=== PATIENT | male | born 1965 | race African-American/Black ===

== ENCOUNTER 2016-05-27 10:52 | Emergency (ER) | payer OTHER ==
[2016-05-27 11:14] VITALS: TEMP 98.1; BMI 45.0
--- NOTE | 2016-05-27 11:46 | PDOC ---
History of Present Illness <Gabriel Pastor - Last Filed: 05/27/16 15:28> - History of Present Illness Initial Comments: 05/27/16 11:58 The patient is a 50 year old male with a past medical hx of hypertension, hyperlipidemia, and NIDDM who presents to the ED complaining of left lower rib pain for a few days. The patient reports he has pain to his lower back with range of motion and twisting. He denies any trauma to his back or falls. The patient notes he is diabetic and checks his sugar levels daily, which are normal. The patient denies any chest pain, SOB The patient denies any dysuria, hematuria The patient denies nausea, vomiting, fever, chills Social: Drinks a few beers daily PCP: Dr. Nikita Henao Allergies: Iodine <Sona Jaquez - Last Filed: 05/27/16 15:45> - General Chief Complaint: Pain Stated Complaint: lt flank SIDE PAIN Past History - Past Medical History Anemia: No Asthma: No Cancer: No Cardiac Disorders: No CVA: No COPD: No CHF: No Dementia: No Diabetes: Yes (NIDDM) GI Disorders: Yes (PANCREATITIS) Disorders: No HTN: Yes Hypercholesterolemia: Yes Liver Disease: No Suicide Attempt (Hx): No Seizures: No Thyroid Disease: No - Surgical History Abdominal Surgery: No Appendectomy: No Cardiac Surgery: No Cholecystectomy: No Lung Surgery: No Neurologic Surgery: No Orthopedic Surgery: Yes (BILATERAL SHOULDER SURGERY) - Family Disease History Family Disease History: Diabetes: Mother, Heart Disease: Father - Psycho/Social/Smoking Cessation Hx Anxiety: No Suicidal Ideation: No Smoking Status: Yes Smoking History: Former smoker Have you smoked in the past 12 months: No Number of Cigarettes Smoked Daily: 0 If you are a former smoker, when did you quit?: 2007 Information on smoking cessation initiated: No Hx Alcohol Use: No Drug/Substance Use Hx: No Substance Use Type: Alcohol Hx Substance Use Treatment: No <Gabriel Pastor - Last Filed: 05/27/16 15:28> <Sona Jaquez - Last Filed: 05/27/16 15:45> - Past Medical History Allergies/Adverse Reactions: Allergies Allergy/AdvReac Type Severity Reaction Status Date / Time fish derived Allergy Verified 05/27/16 11:10 iodine Allergy Verified 05/27/16 11:10 shellfish derived Allergy Difficulty Verified 05/27/16 11:10 Breathing Home Medications: Ambulatory Orders Atorvastatin Ca [Lipitor] 10 mg PO HS #0 tablet 02/15/13 Enalapril Maleate [Vasotec -] 20 mg PO DAILY #0 tablet 02/15/13 Oxybutynin Chloride [Ditropan -] 5 mg PO DAILY 03/27/16 Amlodipine Besylate [Norvasc -] 10 mg PO DAILY 03/28/16 Furosemide [Lasix -] 40 mg PO DAILY 03/28/16 Glyburide/Metformin HCl [Glyburide-Metformin 2.5-500 mg] 1 each PO BID 03/28/16 Metoprolol Succinate [Toprol XL -] 25 mg PO BID 03/28/16 Ibuprofen [Motrin -] 600 mg PO QID #28 tablet 05/27/16 Methocarbamol [Robaxin -] 750 mg PO BID PRN #20 tablet 05/27/16 Review of Systems - Review of Systems Able to Perform ROS?: Yes Comments:: 05/27/16 11:59 CONSTITUTIONAL: Absent: fever, chills, diaphoresis, generalized weakness, malaise, loss of appetite HEENT: Absent: rhinorrhea, nasal congestion, throat pain, throat swelling, difficulty swallowing, mouth swelling, ear pain, eye pain, visual Changes CARDIOVASCULAR: Absent: chest pain, syncope, palpitations, irregular heart rate, lightheadedness , peripheral edema RESPIRATORY: Absent: cough, shortness of breath, dyspnea with exertion, orthopnea, wheezing, stridor, hemoptysis GASTROINTESTINAL: Absent: abdominal pain, abdominal distension, nausea, vomiting, diarrhea, constipation, melena, hematochezia GENITOURINARY: Absent: dysuria, frequency, urgency, hesitancy, hematuria, flank pain, genital pain MUSCULOSKELETAL: +Left lower rib pain. Absent: joint swelling SKIN: Absent: rash, itching, pallor HEMATOLOGIC/IMMUNOLOGIC: Absent: easy bleeding, easy bruising, lymphadenopathy, frequent infections ENDOCRINE: Absent: unexplained weight gain, unexplained weight loss, heat intolerance, cold intolerance NEUROLOGIC: Absent: headache, focal weakness or paresthesias, dizziness, unsteady gait, seizure, mental status changes, bladder or bowel incontinence PSYCHIATRIC: Absent: anxiety, depression, suicidal or homicidal ideation, hallucinations. <Sona Jaquez - Last Filed: 05/27/16 15:45> *Physical Exam - Vital Signs Last Vital Signs Temp Pulse Resp BP Pulse Ox 98.1 F 84 18 129/101 95 05/27/16 11:11 05/27/16 11:11 05/27/16 11:11 05/27/16 11:11 05/27/16 11:11 <Gabriel Pastor - Last Filed: 05/27/16 15:28> - Vital Signs Last Vital Signs Temp Pulse Resp BP Pulse Ox 98.1 F 84 18 129/101 95 05/27/16 11:11 05/27/16 11:11 05/27/16 11:11 05/27/16 11:11 05/27/16 11:11 - Physical Exam Comments: 05/27/16 11:57 GENERAL: Well developed, well nourished. Awake and alert. In no acute distress. HEENT: Normocephalic, atraumatic. PERRLA, EOMI. No conjunctival pallor. Sclera are non- icteric. Moist mucous membranes. Oropharynx is clear. NECK: Supple. Full ROM. No JVD. Carotid pulses 2+ and symmetric, without bruits. No thyromegaly. No lymphadenopathy. CARDIOVASCULAR: Regular rate and rhythm. No murmurs, rubs, or gallops. Distal pulses are 2+ and symmetric. PULMONARY: No evidence of respiratory distress. Lungs clear to auscultation bilaterally. No wheezing, rales or rhonchi. ABDOMINAL: +Mild epigastric tenderness. Soft. Non-distended. No rebound or guarding. No organomegaly. Normoactive bowel sounds. MUSCULOSKELETAL +Tenderness to palpation over the left ninth and tenth rib posteriorly. Normal range of motion at all joints. No bony deformities. No CVA tenderness. EXTREMITIES: No cyanosis. No clubbing. No edema. No calf tenderness. SKIN: Warm and dry. Normal capillary refill. No rashes. No jaundice. NEUROLOGICAL: Alert, awake, appropriate. Cranial nerves 2-12 intact. No deficits to light touch and temperature in face, upper extremities and lower extremities. No motor deficits in the in face, upper extremities and lower extremities. Normoreflexic in the upper and lower extremities. Normal speech. Toes are downgoing bilaterally. Gait is normal without ataxia. PSYCHIATRIC: Cooperative. Good eye contact. Appropriate mood and affect. <Sona Jaquez - Last Filed: 05/27/16 15:45> Heart Score/ECG Review - ECG Impressions Comment:: 05/27/16 13:45 EKG: NSR at a rate of 63 bpm. Normal EKG. <Sona Jaquez - Last Filed: 05/27/16 15:45> ED Treatment Course - LABORATORY CBC & Chemistry Diagram: 05/27/16 12:17 05/27/16 12:17 <Gabriel Pastor - Last Filed: 05/27/16 15:28> - LABORATORY CBC & Chemistry Diagram: 05/27/16 12:17 05/27/16 12:17 - RADIOLOGY Radiograph Interpretation: 05/27/16 14:48 Chest X-Ray AP and lateral views reveal no significant change since 01/26/2015. There are degenerative changes with wedging, clear lungs, normal mediastinum and sharp angles. A gross fracture is not seen. There Is no sign of a pneumothorax, pleural fluid or atelectasis. There is evidence of previous left shoulder surgery with screws seen in the left acromium. Impression: No acute pathology. No significant change. If symptoms persist, further imaging may be of help. Reported By: Chaz Ba MD 05/27/16 [id number] <Sona Jaquez - Last Filed: 05/27/16 15:45> Medical Decision Making - Medical Decision Making 05/27/16 15:45 Discussed the patients weight with him. The patient reports he has not been able to lose weight with conscious effort. The patient was responsive to the suggestion of surgery. He reports he will consider speaking with a Bariatric surgeon on recommendation of Dr. Nikita Henao. <Sona Jaquez - Last Filed: 05/27/16 15:45> *DC/Admit/Observation/Transfer - Discharge Dispostion Admit: No <Gabriel Pastor - Last Filed: 05/27/16 15:28> - Attestations Scribe Attestion: 05/27/16 11:58 Documentation prepared by Sona Jaquez, acting as medical charge entry specialist for Gabriel Pastor MD <Sona Jaquez - Last Filed: 05/27/16 15:45> Diagnosis at time of Disposition: Musculoskeletal chest pain - Discharge Dispostion Disposition: HOME Condition at time of disposition: Improved - Prescriptions Prescriptions: Ibuprofen [Motrin -] 600 mg PO QID #28 tablet Methocarbamol [Robaxin -] 750 mg PO BID PRN #20 tablet PRN Reason: Muscle Spasms - Referrals Referrals: Nikita Henao MD [Primary Care Provider] - - Patient Instructions Printed Discharge Instructions: DI for Musculoskeletal Pain Additional Instructions: contact your PMD to recommend a Bariatric Surgeon for a consultation.
[2016-05-27] MEDS ORDERED: KETOROLAC TROMETHAMINE 30 MG/1 ML VIAL IVPUSH ONE (11:56)
[2016-05-27 12:32] LABS: EOSINOPHIL 2.5 % (0-4.5); MCH 30.3 pg (25.7-33.7); MCHC 32.9 g/dl (32.0-35.9); MEAN CELL VOLUME 92.2 fl (80-96); MEAN PLT VOLUME 8.4 fl (7.5-11.1); PLATELET COUNT 193 K/MM3 (134-434); RDW 15.1 % (11.9-15.9)
[2016-05-27] MEDS ORDERED: KETOROLAC TROMETHAMINE 30 MG/1 ML VIAL ONE (12:45)
[2016-05-27 12:55] LABS: ALBUMIN 3.3 g/dl (3.4-5.0); ANION GAP 5 (8-16); BILIRUBIN,TOTAL 0.6 mg/dL (0.2-1.0); CALCIUM 8.4 mg/dL (8.5-10.1); CO2 28 mmol/L (21-32); CREATININE 1.3 mg/dL (0.7-1.3); GLUCOSE,RANDOM 145 mg/dL (74-106); SGPT/ALT 31 U/L (12-78)
[2016-05-27 13:04] LABS: ALK PHOS 70 U/L (45-117)
[2016-05-27 13:05] LABS: TROPONIN I < 0.02 ng/ml (0.00-0.05)
[2016-05-27 13:08] LABS: SGOT/AST 44 U/L (15-37)
--- NOTE | 2016-05-27 13:28 | EKG ---
Test Reason : Blood Pressure : / mmHG Vent. Rate : 063 BPM Atrial Rate : 063 BPM P-R Int : 154 ms QRS Dur : 090 ms QT Int : 404 ms P-R-T Axes : 058 -19 025 degrees QTc Int : 413 ms NORMAL SINUS RHYTHM NORMAL ECG WHEN COMPARED WITH ECG OF 03-FEB-2015 09:58, VENT. RATE HAS DECREASED BY 32 BPM Confirmed by MAYANK HAYWOOD MD ([id number]) on 05/27/2016 1:27:59 PM Referred By: Confirmed By:MAYANK HAYWOOD MD
[2016-05-27 14:38] LABS: URINE APPEARANCE CLEAR; URINE BILIRUBIN NEGATIVE (NEGATIVE); URINE BLOOD NEGATIVE (NEGATIVE); URINE COLOR LTYELLOW; URINE GLUCOSE (UA) NEGATIVE (NEGATIVE); URINE KETONE NEGATIVE (NEGATIVE); URINE LEUK ESTERASE NEGATIVE (NEGATIVE); URINE NITRITE NEGATIVE (NEGATIVE); URINE PROTEIN NEGATIVE (NEGATIVE); URINE UROBILINOGEN NEGATIVE E.U./dl (0.2-1.0)
[2016-05-27 15:51] VITALS: BP 139/87; PULSE 72
== END 2016-05-27 15:51 | disposition home or self-care (01) ==
LOC: JER 10:52
DX: R07.89 Other chest pain (principal); I10 Essential (primary) hypertension; E11.9 Type 2 diabetes mellitus without complications; Z79.84 Long term (current) use of oral hypoglycemic drugs; E78.00 Pure hypercholesterolemia, unspecified; Z87.891 Personal history of nicotine dependence
CPT/HCPCS: 36415; 71020-TC; 80053; 81003; 82550; 82553; 83690; 84484; 85025; 87086; 93005; 93010; 99283-25

== ENCOUNTER 2017-04-07 10:10 | Emergency (ER) | payer OTHER ==
[2017-04-07 10:14] VITALS: BP 190/109; PULSE 99; TEMP 98.5; BMI 46.2
--- NOTE | 2017-04-07 11:02 | PDOC ---
History of Present Illness - General Chief Complaint: Toothache Stated Complaint: TOOTHACHE Time Seen by Provider: 04/07/17 10:30 History Source: Patient Exam Limitations: No Limitations - History of Present Illness Initial Comments: 04/07/17 19:57 Patient states had swelling to his left upper palate for 2 days with tenderness around left upper molar. Denies fever, denies drainage, denies true tooth pain. Has appointment to see dentist in 3 days. Timing/Duration: unsure Severity: mild, moderate Associated Symptoms: reports: denies symptoms, malaise. denies: fever/chills Past History - Travel Traveled outside of the country in the last 30 days: No Close contact w/someone who was outside of country & ill: No - Past Medical History Allergies/Adverse Reactions: Allergies Allergy/AdvReac Type Severity Reaction Status Date / Time fish derived Allergy Verified 04/07/17 10:13 iodine Allergy Verified 04/07/17 10:13 shellfish derived Allergy Difficulty Verified 04/07/17 10:13 Breathing Home Medications: Ambulatory Orders Atorvastatin Ca [Lipitor] 10 mg PO HS #0 tablet 02/15/13 Enalapril Maleate [Vasotec -] 20 mg PO DAILY #0 tablet 02/15/13 Oxybutynin Chloride [Ditropan -] 5 mg PO DAILY 03/27/16 Amlodipine Besylate [Norvasc -] 10 mg PO DAILY 03/28/16 Furosemide [Lasix -] 40 mg PO DAILY 03/28/16 Glyburide/Metformin HCl [Glyburide-Metformin 2.5-500 mg] 1 each PO BID 03/28/16 Metoprolol Succinate [Toprol XL -] 25 mg PO BID 03/28/16 Ibuprofen [Motrin -] 600 mg PO QID #28 tablet 05/27/16 Methocarbamol [Robaxin -] 750 mg PO BID PRN #20 tablet 05/27/16 Amoxicillin - [Amoxicillin 500mg Capsule -] 500 mg PO TID #21 capsule 04/07/17 Anemia: No Asthma: No Cancer: No Cardiac Disorders: No CVA: No COPD: No CHF: No Dementia: No Diabetes: Yes (NIDDM) GI Disorders: Yes (PANCREATITIS) Disorders: No HTN: Yes Hypercholesterolemia: Yes Liver Disease: No Seizures: No Thyroid Disease: No - Surgical History Abdominal Surgery: No Appendectomy: No Cardiac Surgery: No Cholecystectomy: No Lung Surgery: No Neurologic Surgery: No Orthopedic Surgery: Yes (BILATERAL SHOULDER SURGERY) - Family Disease History Family Disease History: Diabetes: Mother, Heart Disease: Father - Suicide/Smoking/Psychosocial Hx Smoking Status: Yes Smoking History: Never smoked Have you smoked in the past 12 months: No Number of Cigarettes Smoked Daily: 0 If you are a former smoker, when did you quit?: 2007 Hx Alcohol Use: No Drug/Substance Use Hx: No Substance Use Type: None Hx Substance Use Treatment: No Review of Systems - Review of Systems Able to Perform ROS?: Yes Is the patient limited Cuban proficient: Yes Constitutional: Yes: Symptoms Reported, See HPI, Malaise. No: Fever HEENTM: Yes: Symptoms Reported, See HPI, Dental Problems, Mouth Swelling Respiratory: Yes: See HPI. No: Symptoms reported All Other Systems: Reviewed and Negative *Physical Exam - Vital Signs Last Vital Signs Temp Pulse Resp BP Pulse Ox 98.5 F 99 H 20 190/109 100 04/07/17 10:10 04/07/17 10:10 04/07/17 10:10 04/07/17 10:10 04/07/17 10:10 - Physical Exam General Appearance: Yes: Nourished, Appropriately Dressed HEENT: positive: SUSI, TMs Normal, Pharynx Normal, Rhinorrhea, Other (swelling and pain tophard pallet , non fluctuant ) Neck: positive: Supple. negative: Tender, Lymphadenopathy (R) Respiratory/Chest: positive: Lungs Clear, Normal Breath Sounds Cardiovascular: positive: Regular Rhythm Gastrointestinal/Abdominal: positive: Soft. 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, Fully Oriented, Alert Medical Decision Making - Medical Decision Making 04/07/17 20:06 palate abscess , not fluctuant - will start on clindamycin *DC/Admit/Observation/Transfer Diagnosis at time of Disposition: Toothache - Discharge Dispostion Disposition: HOME Condition at time of disposition: Stable Admit: No - Prescriptions Prescriptions: Amoxicillin - [Amoxicillin 500mg Capsule -] 500 mg PO TID #21 capsule - Referrals Referrals: Nikita Henao MD [Primary Care Provider] - - Patient Instructions Printed Discharge Instructions: DI for Dental Pain Additional Instructions: Rest, drink lots of fluids: Teas, water, soups Saltwater gargles/ keep mouth clean and rinse after each meal May use wet teabag for pain relief to area Avoid hard chewing foods, stick to ice cream, Jell-O, yogurt etc. Tylenol or Motrin for fever and pain Complete all medication as prescribed Seek dental appointment as soon as possible for evaluation of dental injury/pain Followup with private physician in one to 2 days as needed Return to emergency department for worsened symptoms, fevers, swelling to face or worsened pain - Post Discharge Activity Forms/Work/School Notes: Back to Work
== END 2017-04-07 11:06 | disposition home or self-care (01) ==
LOC: JERFT 10:10
DX: K08.89 Other specified disorders of teeth and supporting structures (principal); I10 Essential (primary) hypertension; E11.9 Type 2 diabetes mellitus without complications; Z79.84 Long term (current) use of oral hypoglycemic drugs; E78.00 Pure hypercholesterolemia, unspecified; Z87.19 Personal history of other diseases of the digestive system
CPT/HCPCS: 99281-25

== ENCOUNTER 2017-04-14 13:02 | Emergency (ER) | payer OTHER ==
[2017-04-14 13:07] VITALS: BMI 40.3
--- NOTE | 2017-04-14 14:10 | PDOC ---
History of Present Illness - General Chief Complaint: Toothache Stated Complaint: REVISIT, TOOTHACHE Time Seen by Provider: 04/14/17 13:40 History Source: Patient Exam Limitations: No Limitations - History of Present Illness Initial Comments: 04/14/17 14:25 Patient return to emergency Department after completion of weeks worth amoxicillin treating for presumed dental infection with resultant hard palate inflammation. Last weeks mass was approximately 1 cm x 1.5 cm on the left upper mid palate and nonfluctuant. Patient returns today with a larger size mass that approximately 1 cm x 3 cm and fluctuant however nontender. Patient denies fever , denies any changes in blood sugar And is in dental appearance, worsened pain or abscess at dental insertion. States was seen by 2 different dentists who told him they could not perform any dental work including extraction due to the abscess on his hard palate. Was instructed to return to this emergency department for further evaluation and diagnostics . Timing/Duration: unsure Severity: mild, moderate Associated Symptoms: denies: fever/chills Past History - Travel Traveled outside of the country in the last 30 days: No Close contact w/someone who was outside of country & ill: No - Past Medical History Allergies/Adverse Reactions: Allergies Allergy/AdvReac Type Severity Reaction Status Date / Time fish derived Allergy Verified 04/14/17 13:07 iodine Allergy Verified 04/14/17 13:07 shellfish derived Allergy Difficulty Verified 04/14/17 13:07 Breathing Home Medications: Ambulatory Orders Atorvastatin Ca [Lipitor] 10 mg PO HS #0 tablet 02/15/13 Enalapril Maleate [Vasotec -] 20 mg PO DAILY #0 tablet 02/15/13 Oxybutynin Chloride [Ditropan -] 5 mg PO DAILY 03/27/16 Amlodipine Besylate [Norvasc -] 10 mg PO DAILY 03/28/16 Furosemide [Lasix -] 40 mg PO DAILY 03/28/16 Glyburide/Metformin HCl [Glyburide-Metformin 2.5-500 mg] 1 each PO BID 03/28/16 Metoprolol Succinate [Toprol XL -] 25 mg PO BID 03/28/16 Ibuprofen [Motrin -] 600 mg PO QID #28 tablet 05/27/16 Methocarbamol [Robaxin -] 750 mg PO BID PRN #20 tablet 05/27/16 Clindamycin [Cleocin -] 450 mg PO Q8H 7 Days #63 capsule 04/14/17 Anemia: No Asthma: No Cancer: No Cardiac Disorders: No CVA: No COPD: No CHF: No Dementia: No Diabetes: Yes (NIDDM) GI Disorders: Yes (PANCREATITIS) Disorders: No HTN: Yes Hypercholesterolemia: Yes Liver Disease: No Seizures: No Thyroid Disease: No - Surgical History Abdominal Surgery: No Appendectomy: No Cardiac Surgery: No Cholecystectomy: No Lung Surgery: No Neurologic Surgery: No Orthopedic Surgery: Yes (BILATERAL SHOULDER SURGERY) - Family Disease History Family Disease History: Diabetes: Mother, Heart Disease: Father - Suicide/Smoking/Psychosocial Hx Smoking Status: Yes Smoking History: Never smoked Have you smoked in the past 12 months: No Number of Cigarettes Smoked Daily: 0 If you are a former smoker, when did you quit?: 2007 Hx Alcohol Use: No Drug/Substance Use Hx: No Substance Use Type: None Hx Substance Use Treatment: No Review of Systems - Review of Systems Able to Perform ROS?: Yes Is the patient limited Martiniquais proficient: Yes Constitutional: Yes: See HPI. No: Symptoms Reported, Chills, Fever, Malaise HEENTM: Yes: Symptoms Reported, See HPI, Mouth Pain, Dental Problems Respiratory: Yes: See HPI. No: Symptoms reported All Other Systems: Reviewed and Negative *Physical Exam - Vital Signs Last Vital Signs Temp Pulse Resp BP Pulse Ox 98 F 88 20 196/106 97 04/14/17 13:04 04/14/17 13:04 04/14/17 13:04 04/14/17 13:04 04/14/17 13:04 - Physical Exam General Appearance: Yes: Nourished, Appropriately Dressed HEENT: positive: SUSI, TMs Normal, Other (patient with 3 cm x 1 cm fluctuant mass to the left mid upper palate. Is nontender to touch, no erythema, and dentition without obvious abscess or swelling/tenderness to any gingival surface adjacent to upper molars. Was identified at dentist that first and second molars were probable source of infection.). negative: Rhinorrhea, Sinus Tenderness Neck: positive: Supple. negative: Tender, Lymphadenopathy (R), Lymphadenopathy (L) Respiratory/Chest: positive: Lungs Clear, Normal Breath Sounds Cardiovascular: positive: Regular Rhythm Gastrointestinal/Abdominal: positive: Soft. 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 Remains nontender. Due to patient's completed course of antibiotics, diabetes history, and necessity for laboratory work and CAT scan to help identify oral mass, patient was moved to main emergency department and turnover given to Dr. Urias , nursing turnover to RICHARD BROOKE. . She moved to room 12b an updated to plan *DC/Admit/Observation/Transfer Diagnosis at time of Disposition: Dental infection - Discharge Dispostion Disposition: HOME - Prescriptions Prescriptions: Clindamycin [Cleocin -] 450 mg PO Q8H 7 Days #63 capsule - Referrals Referrals: Philomena Naqvi MD [Staff Physician] - Alexus Martin MD [Primary Care Provider] - - Patient Instructions Printed Discharge Instructions: DI for Tooth Abscess Additional Instructions: Take the antibiotics as prescribed. You must follow up with a dentist or oral surgeon within 48 hours to have your infection further treated. Failure to do so may result in worsening infection, severe illness, or potentially . Call the number provided to make an appointment with our oral surgery clinic. If you experience worsening swelling, pain, fevers, or any other concerning symptoms, return to the ER immediately. - Post Discharge Activity
--- NOTE | 2017-04-14 14:38 | PDOC ---
*Physical Exam - Vital Signs Last Vital Signs Temp Pulse Resp BP Pulse Ox 98 F 88 20 196/106 97 04/14/17 13:04 04/14/17 13:04 04/14/17 13:04 04/14/17 13:04 04/14/17 13:04 ED Treatment Course - ADDITIONAL ORDERS Additional order review: Laboratory Results 04/14/17 13:52 POC Glucometer [id number] 04/14/17 13:52 POC Glucometer [id number] - RADIOLOGY Radiology Studies Ordered: Category Date Time Status FACIAL BONES CT W/O CONTRAST [CT] Stat CT Scan 04/14/17 14:32 Ordered Medical Decision Making - Medical Decision Making 04/14/17 14:41 51 M with likely dental abscess, presenting to ER after failed course of amoxicillin. Pt well appearing with no signs of systemic illness. I&D attempted by LELA Winchester without drainage of purulent material. - CT facial bones w/o contrast (contrast allergy) - Will start clindamycin - F/u OMFS 04/14/17 19:13 CT with no evidence of abscess or osteo. Pt started on clinda. BP rechecked, now normalized. Pt given home dose of enalapril. Pt well appearing, vitals normal. Clinically stable for DC at this time. I discussed the physical exam findings, ancillary test results and final diagnoses with the patient. I answered all of the patient's questions. The patient was satisfied with the care received and felt comfortable with the discharge plan and treatment plan. The patient agrees to follow up with the primary care physician within 24-72 hours. *DC/Admit/Observation/Transfer Diagnosis at time of Disposition: Dental infection - Discharge Dispostion Disposition: HOME - Prescriptions Prescriptions: RX: Clindamycin [Cleocin -] 450 mg PO Q8H 7 Days #63 capsule - Referrals Referrals: Alexus Martin MD [Primary Care Provider] - Philomena Naqvi MD [Staff Physician] - - Patient Instructions Printed Discharge Instructions: DI for Tooth Abscess Additional Instructions: Take the antibiotics as prescribed. You must follow up with a dentist or oral surgeon within 48 hours to have your infection further treated. Failure to do so may result in worsening infection, severe illness, or potentially . Call the number provided to make an appointment with our oral surgery clinic. If you experience worsening swelling, pain, fevers, or any other concerning symptoms, return to the ER immediately. - Post Discharge Activity - Attestations Physician Attestion: 04/14/17 14:45 I, Dr. Juvencio Urias MD, attest that this document has been prepared under my direction and personally reviewed by me in its entirety. I further attest, that it accurately reflects all work, treatment, procedures and medical decision -making performed by me.
[2017-04-14] MEDS ORDERED: CLINDAMYCIN HCL 150 MG CAPSULE (FP) PO ONE (14:40)
[2017-04-14] MEDS ORDERED: oxyCODONE HCL 5 MG TABLET ONE (15:01)
[2017-04-14] MEDS ORDERED: CLINDAMYCIN HCL 150 MG CAPSULE (FP) ONE (15:01)
[2017-04-14] MEDS ORDERED: ENALAPRIL MALEATE 10 MG TABLET (FP) PO ONE (17:52)
[2017-04-14] MEDS ORDERED: ENALAPRIL MALEATE 5 MG TABLET (FP) ONE (18:42)
[2017-04-14 18:56] VITALS: BP 162/87; PULSE 78; TEMP 97.1
== END 2017-04-14 19:42 | disposition home or self-care (01) ==
LOC: JERFT 13:02 → JER 13:02
PROC: 0W930ZZ Drainage of Oral Cavity and Throat, Open Approach (ICD-10-PCS; principal; 2017-04-14)
DX: K12.2 Cellulitis and abscess of mouth (principal)
CPT/HCPCS: 70486-TC; 82962; 99282-25

== ENCOUNTER 2017-08-14 13:18 | Observation (INO) | payer OTHER ==
--- NOTE | 2017-08-14 13:56 | PDOC ---
History of Present Illness - General History Source: Patient Exam Limitations: No Limitations - History of Present Illness Initial Comments: 08/14/17 14:36 The patient is a 51 year old male, with a significant PMH of BPH, HTN, DM, who presents to the emergency department sent in by [employer] Dr. Wolf for evaluation of right foot wound. The patient states he does not recall any injury or trauma to the foot but states he noted the wound one week ago. The patient states he went to [employer] Dr. Wolf who advised him to come to the ED for evaluation. The patient denies any recent fever or chills. The patient denies chest pain, shortness of breath, headache and dizziness. Denies nausea, vomit, diarrhea and constipation. Denies dysuria, frequency, urgency and hematuria. Allergies: fish derived, iodine, shellfish derived. <Jeancarlos Garcia - Last Filed: 08/14/17 16:34> <Nicky Albright - Last Filed: 08/14/17 16:36> - General Chief Complaint: Wound Stated Complaint: FOOT PAIN (PCP SENT) Time Seen by Provider: 08/14/17 13:56 Past History <Jeancarlos Garcia - Last Filed: 08/14/17 16:34> - Past Medical History Anemia: No Asthma: No Cancer: No Cardiac Disorders: No CVA: No COPD: No CHF: No DVT: No Dementia: No Diabetes: Yes (NIDDM) GI Disorders: Yes (PANCREATITIS) Disorders: No HTN: Yes Hypercholesterolemia: Yes Liver Disease: No Seizures: No Thyroid Disease: No - Surgical History Abdominal Surgery: No Appendectomy: No Cardiac Surgery: No Cholecystectomy: No Lung Surgery: No Neurologic Surgery: No Orthopedic Surgery: Yes (BILATERAL SHOULDER SURGERY) - Family Disease History Family Disease History: Diabetes: Mother, Heart Disease: Father - Suicide/Smoking/Psychosocial Hx Smoking Status: Yes Smoking History: Former smoker Have you smoked in the past 12 months: No Number of Cigarettes Smoked Daily: 0 If you are a former smoker, when did you quit?: 2007 Information on smoking cessation initiated: No Hx Alcohol Use: No Drug/Substance Use Hx: No Substance Use Type: None Hx Substance Use Treatment: No <Nicky Albright - Last Filed: 08/14/17 16:36> - Past Medical History Allergies/Adverse Reactions: Allergies Allergy/AdvReac Type Severity Reaction Status Date / Time fish derived Allergy Verified 08/14/17 13:20 iodine Allergy Verified 08/14/17 13:20 shellfish derived Allergy Difficulty Verified 08/14/17 13:20 Breathing Home Medications: Ambulatory Orders Atorvastatin Ca [Lipitor] 10 mg PO HS #0 tablet 02/15/13 Enalapril Maleate [Vasotec -] 20 mg PO DAILY #0 tablet 02/15/13 Oxybutynin Chloride [Ditropan -] 5 mg PO DAILY 03/27/16 Amlodipine Besylate [Norvasc -] 10 mg PO DAILY 03/28/16 Furosemide [Lasix -] 40 mg PO DAILY 03/28/16 Glyburide/Metformin HCl [Glyburide-Metformin 2.5-500 mg] 1 each PO BID 03/28/16 Metoprolol Succinate [Toprol XL -] 25 mg PO BID 03/28/16 Ibuprofen [Motrin -] 600 mg PO QID #28 tablet 05/27/16 Methocarbamol [Robaxin -] 750 mg PO BID PRN #20 tablet 05/27/16 Clindamycin [Cleocin -] 450 mg PO Q8H 7 Days #63 capsule 04/14/17 Review of Systems - Review of Systems Comments:: 08/14/17 14:36 GENERAL/CONSTITUTIONAL: No fever or chills. No weakness. HEAD, EYES, EARS, NOSE AND THROAT: No change in vision. No ear pain or discharge. No sore throat. CARDIOVASCULAR: No chest pain or shortness of breath. RESPIRATORY: No cough, wheezing, or hemoptysis. GASTROINTESTINAL: No nausea, vomiting, diarrhea or constipation. GENITOURINARY: No dysuria, frequency, or change in urination. MUSCULOSKELETAL: No joint or muscle swelling or pain. No neck or back pain. SKIN: (+) Right foot wound. No rash NEUROLOGIC: No headache, vertigo, loss of consciousness, or change in strength/ sensation. ENDOCRINE: No increased thirst. No abnormal weight change. HEMATOLOGIC/LYMPHATIC: No anemia, easy bleeding, or history of blood clots. ALLERGIC/IMMUNOLOGIC: No hives or skin allergy. <Jeancarlos Garcia - Last Filed: 08/14/17 16:34> *Physical Exam - Vital Signs Last Vital Signs Temp Pulse Resp BP Pulse Ox 98.6 F 87 18 146/100 100 08/14/17 13:20 08/14/17 13:20 08/14/17 13:20 08/14/17 13:20 08/14/17 13:20 - Physical Exam Comments: 08/14/17 14:38 GENERAL: Awake, alert, and fully oriented, in no acute distress HEAD: No signs of trauma EYES: PERRLA, EOMI, sclera anicteric, conjunctiva clear ENT: Auricles normal inspection, hearing grossly normal, nares patent, oropharynx clear without exudates. Moist mucosa NECK: Normal ROM, supple, no lymphadenopathy, JVD, or masses LUNGS: Breath sounds equal, clear to auscultation bilaterally. No wheezes, and no crackles HEART: Regular rate and rhythm, normal S1 and S2, no murmurs, rubs or gallops ABDOMEN: Soft, nontender, normoactive bowel sounds. No guarding, no rebound. No masses EXTREMITIES: Normal range of motion, no edema. No clubbing or cyanosis. No cords, erythema, or tenderness NEUROLOGICAL: Cranial nerves II through XII grossly intact. Normal speech, normal gait SKIN: (+) Chronic skin thickening over the dorsum of the right foot with 2 cm ulcer on the plantar surface of the foot. (+) Tenderness, without minimal drainage and no surrounding erythema. <Jeancarlos Garcia - Last Filed: 08/14/17 16:34> - Vital Signs Last Vital Signs Temp Pulse Resp BP Pulse Ox 98.6 F 87 18 146/100 100 08/14/17 13:20 08/14/17 13:20 08/14/17 13:20 08/14/17 13:20 08/14/17 13:20 <Nicky Albright - Last Filed: 08/14/17 16:36> ED Treatment Course - LABORATORY CBC & Chemistry Diagram: 08/14/17 14:30 08/14/17 14:30 <Jeancarlos Garcia - Last Filed: 08/14/17 16:34> - LABORATORY CBC & Chemistry Diagram: 08/14/17 14:30 08/14/17 14:30 <Nicky Albright - Last Filed: 08/14/17 16:36> Medical Decision Making - Medical Decision Making 08/14/17 16:[address] Alexus Martin. Case discussed. <Jeancarlos Garcia - Last Filed: 08/14/17 16:34> - Medical Decision Making 08/14/17 15:30 pt presents to the ED complaining of wound to his R foot. Seen by diesel trailer mechanic and told to come to the ED for possible infection and need for IV antibiotics. No systemic signs of infection. Will check labs and blood CX, check xray of the foot and admit to medicine. <Nicky Albright - Last Filed: 08/14/17 16:36> *DC/Admit/Observation/Transfer - Attestations Scribe Attestion: 08/14/17 14:43 Documentation prepared by Jeancarlos Garcia, acting as medical center representative for Nicky Albright MD. <Jeancarlos Garcia - Last Filed: 08/14/17 16:34> - Discharge Dispostion Decision to Admit order: Yes <Nicky Albright - Last Filed: 08/14/17 16:36> Diagnosis at time of Disposition: Diabetic foot ulcer Qualifiers: Diabetic foot ulcer location: midfoot Diabetes mellitus type: type 2 Laterality : right Non-pressure ulcer stage: limited to breakdown of skin Qualified Code(s) : E11.621 - Type 2 diabetes mellitus with foot ulcer; L97.411 - Non-pressure chronic ulcer of right heel and midfoot limited to breakdown of skin; L97.411 - Non-pressure chronic ulcer of right heel and midfoot limited to breakdown of skin; L97.411 - Non-pressure chronic ulcer of right heel and midfoot limited to breakdown of skin; L97.411 - Non-pressure chronic ulcer of right heel and midfoot limited to breakdown of skin - Referrals Referrals: Alexus Martin MD [Primary Care Provider] - - Patient Instructions - Post Discharge Activity
[2017-08-14 14:58] LABS: EOS % 2.4 % (0-4.5); HEMATOCRIT 35.7 % (35.4-49); LYMPH % 17.5 % (8-40); MCH 30.6 pg (25.7-33.7); MCHC 33.6 g/dl (32.0-35.9); MEAN CELL VOLUME 91.2 fl (80-96); MEAN PLT VOLUME 8.8 fl (7.5-11.1); MONO % 9.4 % (3.8-10.2); NEUT % 69.7 % (42.8-82.8); PLATELET COUNT 204 K/MM3 (134-434); RBC 3.92 M/mm3 (4.00-5.60); RDW 14.6 % (11.9-15.9)
[2017-08-14 15:24] LABS: ALBUMIN 3.3 g/dl (3.4-5.0); ANION GAP 4 (8-16); BLOOD UREA NITROGEN 23 mg/dL (7-18); CALCIUM 8.8 mg/dL (8.5-10.1); CHLORIDE 104 mmol/L (98-107); CO2 30 mmol/L (21-32); CREATININE 1.5 mg/dL (0.7-1.3); GLUCOSE,RANDOM 213 mg/dL (74-106); SGPT/ALT 30 U/L (12-78); SODIUM 138 mmol/L (136-145)
[2017-08-14 15:26] LABS: ALK PHOS 88 U/L (45-117); BILIRUBIN,TOTAL 0.4 mg/dL (0.2-1.0); TOT PROT 7.8 g/dl (6.4-8.2)
[2017-08-14 16:05] LABS: POTASSIUM 4.9 mmol/L (3.5-5.1); SGOT/AST 31 U/L (15-37)
[2017-08-14] MEDS ORDERED: AMPICILLIN NA/SULBACTAM NA 3 GM in SODIUM CHLORIDE 100 ML IVPB ONE (16:35)
[2017-08-14] MEDS ORDERED: METHOCARBAMOL 750 MG TABLET PO PRN ×2 (17:46→21:14)
[2017-08-14] MEDS: INSULIN SLIDING SCALE (NOVOLOG) 1 VIAL SQ SCH (21:41)
[2017-08-14] MEDS: metoPROLOL SUCCINATE 25 MG TAB.SR.24H (FP) PO SCH (21:41)
[2017-08-14] MEDS: ATORVASTATIN CA 10 MG TABLET (FP) PO SCH (21:41)
[2017-08-14] MEDS: METHOCARBAMOL 500 MG TABLET PO SCH (22:28)
[2017-08-15 00:04] VITALS: BMI 50.1
[2017-08-15] MEDS ORDERED: AMPICILLIN NA/SULBACTAM NA 3 GM in SODIUM CHLORIDE 100 ML IVPB ONE (04:48)
[2017-08-15] MEDS: INSULIN SLIDING SCALE (NOVOLOG) 1 VIAL SQ SCH ×4 (06:39→21:26)
[2017-08-15] MEDS ORDERED: INSULIN (NOVOLOG) ASPART 100 UNITS/ML 10ML VIAL ONE ×2 (06:52→21:11)
[2017-08-15 09:24] LABS: BASO % 0.9 % (0-2.0); EOS % 3.6 % (0-4.5); HEMOGLOBIN 11.9 GM/dL (11.7-16.9); MCH 30.3 pg (25.7-33.7); MCHC 33.1 g/dl (32.0-35.9); MEAN CELL VOLUME 91.5 fl (80-96); MEAN PLT VOLUME 8.6 fl (7.5-11.1); MONO % 9.1 % (3.8-10.2); NEUT % 60.4 % (42.8-82.8); PLATELET COUNT 196 K/MM3 (134-434); RBC 3.94 M/mm3 (4.00-5.60); RDW 14.4 % (11.9-15.9)
[2017-08-15] MEDS ORDERED: PT OWN MED DRAWER 7, Y5N ONE ×2 (09:25→21:11)
[2017-08-15] MEDS ORDERED: PATIENT'S OWN MEDICATION (NON-FORMULARY) (Enalapril Maleate [Vasotec -] 20 MG) PO SCH (10:00)
[2017-08-15 10:14] LABS: CHLORIDE 101 mmol/L (98-107); POTASSIUM 4.3 mmol/L (3.5-5.1); SODIUM 138 mmol/L (136-145)
[2017-08-15 10:45] LABS: ALBUMIN 3.3 g/dl (3.4-5.0); ALK PHOS 80 U/L (45-117); ANION GAP 6 (8-16); BILIRUBIN,TOTAL 0.6 mg/dL (0.2-1.0); BLOOD UREA NITROGEN 19 mg/dL (7-18); CALCIUM 8.7 mg/dL (8.5-10.1); CO2 31 mmol/L (21-32); CREATININE 1.2 mg/dL (0.7-1.3); GLUCOSE,RANDOM 237 mg/dL (74-106); SGOT/AST 17 U/L (15-37); SGPT/ALT 26 U/L (12-78); TOT PROT 7.6 g/dl (6.4-8.2)
[2017-08-15] MEDS: amLODIPine BESYLATE 10 MG TABLET (FP) PO SCH (10:55)
[2017-08-15] MEDS: ENALAPRIL MALEATE 10 MG TABLET (FP) PO SCH (10:55)
[2017-08-15] MEDS: OXYBUTYNIN CHLORIDE 5 MG TABLET PO SCH (10:55)
[2017-08-15] MEDS: METHOCARBAMOL 500 MG TABLET PO SCH ×2 (10:55→21:26)
[2017-08-15] MEDS: metoPROLOL SUCCINATE 25 MG TAB.SR.24H (FP) PO SCH ×2 (10:55→21:26)
--- NOTE | 2017-08-15 11:14 | HP ---
Admitting History and Physical - Primary Care Physician PCP: Nikita Henao - Admission Chief Complaint: foot ulcer History of Present Illness: ER HISTORY The patient is a 51 year old male, with a significant PMH of BPH, HTN, DM, who presents to the emergency department sent in by [employer] Dr. Wolf for evaluation of right foot wound. The patient states he does not recall any injury or trauma to the foot but states he noted the wound one week ago. The patient states he went to [employer] Dr. Wolf who advised him to come to the ED for evaluation. The patient denies any recent fever or chills. The patient denies chest pain, shortness of breath, headache and dizziness. Denies nausea, vomit, diarrhea and constipation. Denies dysuria, frequency, urgency and hematuria. Allergies: fish derived, iodine, shellfish derived. Pt seen by me on the floors He feels well denies any pain in foot No drainage History Source: Patient Limitations to Obtaining History: No Limitations - Past Medical History Cardiovascular: Yes: HTN, Hyperlipdemia Renal/: Yes: Renal Inusuff Endocrine: Yes: Diabetes Mellitus - Smoking History Smoking history: Former smoker Have you smoked in the past 12 months: No Aproximately how many cigarettes per day: 0 If you are a former smoker, when did you quit?: 2007 - Alcohol/Substance Use Hx Alcohol Use: No Home Medications - Allergies Allergies/Adverse Reactions: Allergies Allergy/AdvReac Type Severity Reaction Status Date / Time fish derived Allergy Verified 08/14/17 13:20 iodine Allergy Verified 08/14/17 13:20 shellfish derived Allergy Difficulty Verified 08/14/17 13:20 Breathing - Home Medications Home Medications: Ambulatory Orders Atorvastatin Ca [Lipitor] 10 mg PO HS #0 tablet 02/15/13 Enalapril Maleate [Vasotec -] 20 mg PO DAILY #0 tablet 02/15/13 Oxybutynin Chloride [Ditropan -] 5 mg PO DAILY 03/27/16 Amlodipine Besylate [Norvasc -] 10 mg PO DAILY 03/28/16 Furosemide [Lasix -] 40 mg PO DAILY 03/28/16 Glyburide/Metformin HCl [Glyburide-Metformin 2.5-500 mg] 1 each PO BID 03/28/16 Metoprolol Succinate [Toprol XL -] 25 mg PO BID 03/28/16 Ibuprofen [Motrin -] 600 mg PO QID #28 tablet 05/27/16 Methocarbamol [Robaxin -] 750 mg PO BID PRN #20 tablet 05/27/16 Review of Systems - Review of Systems Constitutional: denies: Chills, Fever Integumentary: reports: Wound Physical Examination Vital Signs: Vital Signs Temperature 98.8 F 08/15/17 09:00 Pulse Rate 92 H 08/15/17 09:00 Respiratory Rate 20 08/15/17 09:00 Blood Pressure 146/89 08/15/17 09:00 O2 Sat by Pulse Oximetry (%) 100 08/15/17 00:08 Constitutional: Yes: No Distress, Calm Cardiovascular: Yes: Regular Rate and Rhythm Respiratory: Yes: CTA Bilaterally Gastrointestinal: Yes: Normal Bowel Sounds, Soft, Abdomen, Obese. No: Tenderness Extremities: Yes: Other (rt foot wound) Edema: No Labs: CBC, BMP 08/15/17 08:49 08/15/17 08:49 Imaging - Results Chest X-ray: Image Reviewed (Clear) X-ray: Report Reviewed EKG: Image Reviewed (NSR) Problem List - Problems (1) Diabetic foot ulcer Code(s): E11.621 - TYPE 2 DIABETES MELLITUS WITH FOOT ULCER; L97.509 - NON- PRESSURE CHRONIC ULCER OTH PRT UNSP FOOT W UNSP SEVERITY Qualifiers: Diabetic foot ulcer location: midfoot Diabetes mellitus type: type 2 Laterality: right Non-pressure ulcer stage: limited to breakdown of skin Qualified Code(s): E11.621 - Type 2 diabetes mellitus with foot ulcer; L97.411 - Non-pressure chronic ulcer of right heel and midfoot limited to breakdown of skin; L97.411 - Non-pressure chronic ulcer of right heel and midfoot limited to breakdown of skin; L97.411 - Non-pressure chronic ulcer of right heel and midfoot limited to breakdown of skin; L97.411 - Non-pressure chronic ulcer of right heel and midfoot limited to breakdown of skin (2) Obesity Code(s): E66.9 - OBESITY, UNSPECIFIED (3) Plantar ulcer of right foot Code(s): L97.519 - NON-PRS CHRONIC ULCER OTH PRT RIGHT FOOT W UNSP SEVERITY Qualifiers: Non-pressure ulcer stage: limited to breakdown of skin Qualified Code(s): L97.511 - Non-pressure chronic ulcer of other part of right foot limited to breakdown of skin (4) BPH (benign prostatic hyperplasia) Code(s): N40.0 - BENIGN PROSTATIC HYPERPLASIA WITHOUT LOWER URINRY TRACT SYMP Assessment/Plan PLAN Spoke with ID-- on iv antibiotics Unable to do MRI due to pt's body habitus afebrile no elevated WBC continue with meds
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
[2017-08-15 11:52] LABS: ERYTHROCYTE SEDIMENTATION RATE 28 mm/hr (0-20)
--- NOTE | 2017-08-15 11:57 | EKG ---
Test Reason : Blood Pressure : / mmHG Vent. Rate : 086 BPM Atrial Rate : 086 BPM P-R Int : 144 ms QRS Dur : 090 ms QT Int : 370 ms P-R-T Axes : 050 -15 045 degrees QTc Int : 442 ms NORMAL SINUS RHYTHM POSSIBLE LEFT ATRIAL ENLARGEMENT BORDERLINE ECG WHEN COMPARED WITH ECG OF 27-MAY-2016 13:11, NO SIGNIFICANT CHANGE WAS FOUND Confirmed by MATTHIAS CHRISTIANSEN, RE ([id number]) on 08/15/2017 11:57:40 AM Referred By: Confirmed By:RE RIZZO MD
[2017-08-15] MEDS: ATORVASTATIN CA 10 MG TABLET (FP) PO SCH (21:26)
[2017-08-16] MEDS: INSULIN SLIDING SCALE (NOVOLOG) 1 VIAL SQ SCH ×4 (06:11→21:27)
[2017-08-16] MEDS: amLODIPine BESYLATE 10 MG TABLET (FP) PO SCH (10:36)
[2017-08-16] MEDS: ENALAPRIL MALEATE 10 MG TABLET (FP) PO SCH (10:36)
[2017-08-16] MEDS: metoPROLOL SUCCINATE 25 MG TAB.SR.24H (FP) PO SCH ×2 (10:36→21:27)
[2017-08-16] MEDS: OXYBUTYNIN CHLORIDE 5 MG TABLET PO SCH (10:36)
[2017-08-16] MEDS: METHOCARBAMOL 500 MG TABLET PO SCH ×2 (10:37→21:27)
--- NOTE | 2017-08-16 12:57 | PN ---
Progress Note, Physician Chief Complaint: no complaints feels well - Current Medication List Current Medications: Active Medications Amlodipine Besylate (Norvasc -) 10 mg PO DAILY [facility] Last Admin: 08/16/17 10:36 Dose: 10 mg Atorvastatin Calcium (Lipitor -) 10 mg PO HS [facility] Last Admin: 08/15/17 21:26 Dose: 10 mg Enalapril Maleate (Vasotec -) 20 mg PO DAILY [facility] Last Admin: 08/16/17 10:36 Dose: 20 mg Insulin Aspart (Novolog Vial Sliding Scale -) 1 vial SQ ACHS [facility] PRN Reason: Protocol Last Admin: 08/16/17 11:50 Dose: 6 units Methocarbamol (Robaxin -) 750 mg PO BID [facility] Last Admin: 08/16/17 10:37 Dose: 750 mg Metoprolol Succinate (Toprol Xl -) 25 mg PO BID [facility] Last Admin: 08/16/17 10:36 Dose: 25 mg Oxybutynin Chloride (Ditropan -) 5 mg PO DAILY [facility] Last Admin: 08/16/17 10:36 Dose: 5 mg - Objective Vital Signs: Vital Signs Temperature 98.5 F 08/16/17 06:55 Pulse Rate 77 08/16/17 06:55 Respiratory Rate 19 08/16/17 06:55 Blood Pressure 139/76 08/16/17 06:55 O2 Sat by Pulse Oximetry (%) 95 08/15/17 21:00 Constitutional: Yes: No Distress Cardiovascular: Yes: Regular Rate and Rhythm Respiratory: Yes: CTA Bilaterally Gastrointestinal: Yes: Normal Bowel Sounds, Soft, Abdomen, Obese. No: Tenderness Edema: No Labs: CBC, BMP 08/15/17 08:49 08/15/17 08:49 Problem List - Problems (1) Diabetic foot ulcer Code(s): E11.621 - TYPE 2 DIABETES MELLITUS WITH FOOT ULCER; L97.509 - NON- PRESSURE CHRONIC ULCER OTH PRT UNSP FOOT W UNSP SEVERITY Qualifiers: Diabetic foot ulcer location: midfoot Diabetes mellitus type: type 2 Laterality: right Non-pressure ulcer stage: limited to breakdown of skin Qualified Code(s): E11.621 - Type 2 diabetes mellitus with foot ulcer; L97.411 - Non-pressure chronic ulcer of right heel and midfoot limited to breakdown of skin; L97.411 - Non-pressure chronic ulcer of right heel and midfoot limited to breakdown of skin; L97.411 - Non-pressure chronic ulcer of right heel and midfoot limited to breakdown of skin; L97.411 - Non-pressure chronic ulcer of right heel and midfoot limited to breakdown of skin (2) Obesity Code(s): E66.9 - OBESITY, UNSPECIFIED (3) Plantar ulcer of right foot Code(s): L97.519 - NON-PRS CHRONIC ULCER OTH PRT RIGHT FOOT W UNSP SEVERITY Qualifiers: Non-pressure ulcer stage: limited to breakdown of skin Qualified Code(s): L97.511 - Non-pressure chronic ulcer of other part of right foot limited to breakdown of skin (4) BPH (benign prostatic hyperplasia) Code(s): N40.0 - BENIGN PROSTATIC HYPERPLASIA WITHOUT LOWER URINRY TRACT SYMP Assessment/Plan PLAN continue iv antibiotics for today Unable to do MRI due to pt's body habitus afebrile no elevated WBC continue with meds check A1C podiatry eval
--- NOTE | 2017-08-16 15:16 | PN ---
Progress Note (short form) - Note Progress Note: feels well Vital Signs Period Temp Pulse Resp BP Sys/See Pulse Ox Last 24 Hr 97.4 F-98.5 F 77-82 19-20 139-146/76-80 95-99 cor-rrr lungs clear abd soft,nt ext no edemea plantar ulcer is clean CBC, BMP 08/15/17 08:49 08/15/17 08:49 Laboratory Tests 08/14/17 08/15/17 14:30 08:49 ESR 28 H C-Reactive Protein 1.8 H a/p plantar ulcer-shallow continue unasyn switch to po augmentin in am f/u with podiatry please call back if needed Problem List - Problems (1) Plantar ulcer of right foot Code(s): L97.519 - NON-PRS CHRONIC ULCER OTH PRT RIGHT FOOT W UNSP SEVERITY Qualifiers: Non-pressure ulcer stage: limited to breakdown of skin Qualified Code(s): L97.511 - Non-pressure chronic ulcer of other part of right foot limited to breakdown of skin (2) Obesity Code(s): E66.9 - OBESITY, UNSPECIFIED
[2017-08-16] MEDS: AMPICILLIN NA/SULBACTAM NA 3 GM in SODIUM CHLORIDE 100 ML IVPB SCH ×2 (16:04→21:29)
[2017-08-16] MEDS: ENOXAPARIN NA (PORCINE) 40 MG/0.4 ML DISP.SYRIN SQ SCH (17:15)
[2017-08-16] MEDS: metFORMIN HCL 500 MG TABLET (FP) PO SCH (17:15)
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
[2017-08-16] MEDS: ATORVASTATIN CA 10 MG TABLET (FP) PO SCH (21:27)
[2017-08-17] MEDS: AMPICILLIN NA/SULBACTAM NA 3 GM in SODIUM CHLORIDE 100 ML IVPB SCH ×2 (02:11→09:54)
[2017-08-17] MEDS ORDERED: PT OWN MED DRAWER 7, Y5N ONE ×2 (05:42→09:51)
[2017-08-17] MEDS: INSULIN SLIDING SCALE (NOVOLOG) 1 VIAL SQ SCH ×2 (06:47→11:41)
[2017-08-17] MEDS: metFORMIN HCL 500 MG TABLET (FP) PO SCH (06:47)
[2017-08-17 09:02] LABS: BASO % 0.9 % (0-2.0); EOS % 2.6 % (0-4.5); HEMATOCRIT 38.5 % (35.4-49); HEMOGLOBIN 12.8 GM/dL (11.7-16.9); LYMPH % 23.8 % (8-40); MCH 30.4 pg (25.7-33.7); MCHC 33.3 g/dl (32.0-35.9); MEAN CELL VOLUME 91.3 fl (80-96); MEAN PLT VOLUME 8.8 fl (7.5-11.1); MONO % 9.5 % (3.8-10.2); NEUT % 63.2 % (42.8-82.8); PLATELET COUNT 191 K/MM3 (134-434); RBC 4.22 M/mm3 (4.00-5.60); RDW 14.4 % (11.9-15.9); WHITE BLOOD COUNT 4.2 K/mm3 (4.0-10.0)
[2017-08-17 09:38] LABS: CHLORIDE 103 mmol/L (98-107); POTASSIUM 4.5 mmol/L (3.5-5.1); SODIUM 138 mmol/L (136-145)
[2017-08-17 09:46] VITALS: BP 149/80; PULSE 79; TEMP 98
[2017-08-17 09:54] LABS: ALBUMIN 3.3 g/dl (3.4-5.0); ALK PHOS 81 U/L (45-117); ANION GAP 6 (8-16); BILIRUBIN,TOTAL 0.3 mg/dL (0.2-1.0); BLOOD UREA NITROGEN 23 mg/dL (7-18); CALCIUM 8.7 mg/dL (8.5-10.1); CHOLESTEROL 146 mg/dL (50-200); CO2 29 mmol/L (21-32); CREATININE 1.3 mg/dL (0.7-1.3); GLUCOSE,RANDOM 175 mg/dL (74-106); HDL CHOLESTEROL 56 mg/dL (40-60); SGOT/AST 14 U/L (15-37); SGPT/ALT 27 U/L (12-78); TOT PROT 7.7 g/dl (6.4-8.2); TRIGLYCERIDES 86 mg/dL (35-160)
[2017-08-17] MEDS: amLODIPine BESYLATE 10 MG TABLET (FP) PO SCH (09:54)
[2017-08-17] MEDS: ENALAPRIL MALEATE 10 MG TABLET (FP) PO SCH (09:54)
[2017-08-17] MEDS: metoPROLOL SUCCINATE 25 MG TAB.SR.24H (FP) PO SCH (09:54)
[2017-08-17] MEDS: OXYBUTYNIN CHLORIDE 5 MG TABLET PO SCH (09:54)
[2017-08-17] MEDS: METHOCARBAMOL 500 MG TABLET PO SCH (09:54)
[2017-08-17] MEDS: ENOXAPARIN NA (PORCINE) 40 MG/0.4 ML DISP.SYRIN SQ SCH (09:55)
--- NOTE | 2017-08-17 10:10 | DS ---
Physical Examination Vital Signs: Vital Signs Temperature 98.0 F 08/17/17 09:45 Pulse Rate 79 08/17/17 09:45 Respiratory Rate 20 08/17/17 09:45 Blood Pressure 149/80 08/17/17 09:45 O2 Sat by Pulse Oximetry (%) 99 08/17/17 03:00 Findings/Remarks: comfortable wants to go home no complains Constitutional: Yes: No Distress, Calm Eyes: Yes: Conjunctiva Clear HENT: Yes: Other (keloids + -- back of head.) Neck: Yes: Supple Cardiovascular: Yes: Regular Rate and Rhythm Respiratory: Yes: CTA Bilaterally Gastrointestinal: Yes: Soft, Abdomen, Obese Edema: No Wound/Incision: Yes: Other (dressing +) Neurological: Yes: Alert Labs: CBC, BMP 08/17/17 08:30 08/17/17 08:30 Discharge Summary Reason For Visit: DIABETIC FOOT ULCER Current Active Problems Diabetic foot ulcer (Acute) Obesity (Acute) Plantar ulcer of right foot (Acute) Hospital Course: Admitted for diabetic foot ulcer treated with abx Shallow plantar ulcer i/d followed cleared for d/c on po abx Non - compliant pt Compliance strongly stressed . will d/c on po abx f/u instructions given meds reconciled Discussed with nursing staff also. d/c time 30 min in examining / documenting and coordating care. Condition: Stable - Instructions Diet, Activity, Other Instructions: Low salt , Diabetic diet f/u in office in one week. F/u With Dr. Dejesus as directed - one week Referrals: Alexus Martin MD [Primary Care Provider] - Disposition: HOME - Home Medications Comprehensive Discharge Medication List: Ambulatory Orders Atorvastatin Ca [Lipitor] 10 mg PO HS #0 tablet 02/15/13 Enalapril Maleate [Vasotec -] 20 mg PO DAILY #0 tablet 02/15/13 Oxybutynin Chloride [Ditropan -] 5 mg PO DAILY 03/27/16 Amlodipine Besylate [Norvasc -] 10 mg PO DAILY 03/28/16 Furosemide [Lasix -] 40 mg PO DAILY 03/28/16 Glyburide/Metformin HCl [Glyburide-Metformin 2.5-500 mg] 1 each PO BID 03/28/16 Metoprolol Succinate [Toprol XL -] 25 mg PO BID 03/28/16 Methocarbamol [Robaxin -] 750 mg PO BID PRN #20 tablet 05/27/16 Amoxicillin/Potassium Clav [Augmentin 875-125 Tablet] 1 each PO BID 7 Days #14 tablet 08/17/17
[2017-08-17 10:54] LABS: ERYTHROCYTE SEDIMENTATION RATE 26 mm/hr (0-20)
[2017-08-17] MEDS ORDERED: INSULIN (NOVOLOG) ASPART 100 UNITS/ML 10ML VIAL ONE (11:21)
== END 2017-08-17 14:03 | disposition home or self-care (01) ==
LOC: JER 13:18 → INTOOBSV 16:37 → JERBED 16:37 → J6S 20:37
PROVIDERS: ADMIT Internal Medicine; ATTEND Internal Medicine
PROC: 3E03329 Introduction of Other Anti-infective into Peripheral Vein, Percutaneous Approach (ICD-10-PCS; principal; 2017-08-14)
PROC: 3E013VG Introduction of Insulin into Subcutaneous Tissue, Percutaneous Approach (ICD-10-PCS; 2017-08-14)
PROC: 3E013GC Introduction of Other Therapeutic Substance into Subcutaneous Tissue, Percutaneous Approach (ICD-10-PCS; 2017-08-14)
DX: E11.621 Type 2 diabetes mellitus with foot ulcer (principal); L97.411 Non-pressure chronic ulcer of right heel and midfoot limited to breakdown of skin; I10 Essential (primary) hypertension; N40.0 Benign prostatic hyperplasia without lower urinary tract symptoms; E78.5 Hyperlipidemia, unspecified; L03.115 Cellulitis of right lower limb; G62.9 Polyneuropathy, unspecified; E66.9 Obesity, unspecified; Z68.43 Body mass index [BMI] 50.0-59.9, adult; Z87.891 Personal history of nicotine dependence; Z79.84 Long term (current) use of oral hypoglycemic drugs; Z91.013 Allergy to seafood; Z91.048 Other nonmedicinal substance allergy status
CPT/HCPCS: 36415; 71045-TC-FY; 73630-TC-RT-FY; 80053; 80061; 82962; 83036; 83605; 83721; 84439; 84443; 85025; 85651; 86140; 87040; 93005; 93010; 99283-25; G0378

== ENCOUNTER 2018-02-19 10:08 | Emergency (ER) | payer BC, OTHER ==
[2018-02-19 10:33] VITALS: BMI 41.5
[2018-02-19] MEDS ORDERED: PIPERACILLIN/TAZOB 3.375 GM 3.375 GM in DEXTROSE 5%-WATER - 50 ML IVPB ONE (11:14)
--- NOTE | 2018-02-19 11:15 | PDOC ---
History of Present Illness - General Chief Complaint: Wound Stated Complaint: FOOT PAIN, RT SIDE PAIN Time Seen by Provider: 02/19/18 10:55 History Source: Patient - History of Present Illness Associated Symptoms: denies: fever/chills, malaise Past History - Past Medical History Allergies/Adverse Reactions: Allergies Allergy/AdvReac Type Severity Reaction Status Date / Time fish derived Allergy Verified 08/14/17 13:20 iodine Allergy Verified 08/14/17 13:20 shellfish derived Allergy Difficulty Verified 08/14/17 13:20 Breathing Home Medications: Ambulatory Orders Atorvastatin Ca [Lipitor] 10 mg PO HS #0 tablet 02/15/13 Enalapril Maleate [Vasotec -] 20 mg PO DAILY #0 tablet 02/15/13 Oxybutynin Chloride [Ditropan -] 5 mg PO DAILY 03/27/16 Amlodipine Besylate [Norvasc -] 10 mg PO DAILY 03/28/16 Furosemide [Lasix -] 40 mg PO DAILY 03/28/16 Glyburide/Metformin HCl [Glyburide-Metformin 2.5-500 mg] 1 each PO BID 03/28/16 Metoprolol Succinate [Toprol XL -] 25 mg PO BID 03/28/16 Methocarbamol [Robaxin -] 750 mg PO BID PRN #20 tablet 05/27/16 Amoxicillin/Potassium Clav [Augmentin 875-125 Tablet] 1 each PO BID 7 Days #14 tablet 08/17/17 Amoxicillin/Potassium Clav [Augmentin 875-125 Tablet] 1 each PO BID 7 Days #14 tablet 08/17/17 Cephalexin [Keflex] 500 mg PO Q6H #28 capsule 02/19/18 Sulfamethoxazole/Trimethoprim [Bactrim Ds Tablet] 1 each PO BID #14 tablet 02/19 Anemia: No Asthma: No Cancer: No Cardiac Disorders: No CVA: No COPD: No CHF: No DVT: No Dementia: No Diabetes: Yes (NIDDM) GI Disorders: Yes (PANCREATITIS) Disorders: No HTN: Yes Hypercholesterolemia: Yes Liver Disease: No Seizures: No Thyroid Disease: No - Surgical History Abdominal Surgery: No Appendectomy: No Cardiac Surgery: No Cholecystectomy: No Lung Surgery: No Neurologic Surgery: No Orthopedic Surgery: Yes (BILATERAL SHOULDER SURGERY) - Family Disease History Family Disease History: Diabetes: Mother, Heart Disease: Father - Suicide/Smoking/Psychosocial Hx Smoking Status: Yes Smoking History: Former smoker Have you smoked in the past 12 months: No Number of Cigarettes Smoked Daily: 0 If you are a former smoker, when did you quit?: 2007 Information on smoking cessation initiated: No Hx Alcohol Use: No Drug/Substance Use Hx: No Substance Use Type: None Hx Substance Use Treatment: No Review of Systems - Review of Systems Constitutional: No: Chills, Fever, Malaise *Physical Exam - Vital Signs Last Vital Signs Temp Pulse Resp BP Pulse Ox 100.1 F H 95 H 17 146/75 97 02/19/18 10:29 02/19/18 10:29 02/19/18 10:29 02/19/18 10:29 02/19/18 10:29 - Physical Exam General Appearance: Yes: Appropriately Dressed. No: Apparent Distress HEENT: positive: Normal Voice Neck: positive: Supple Respiratory/Chest: negative: Respiratory Distress Extremity: positive: Pedal Edema (w/ clean, dry shallow ulcer to plantar aspect of R 1st metatarsal, no sig ttp) Integumentary: positive: Dry, Warm Neurologic: positive: Fully Oriented, Alert, Normal Mood/Affect ED Treatment Course - LABORATORY CBC & Chemistry Diagram: 02/19/18 11:30 02/19/18 11:06 Medical Decision Making - Medical Decision Making 02/19/18 11:15 52-year-old male, morbid obesity, NIDDM, ?CKD, chronic R 1st metatarsal ulcer with multiple admissions for lower extremity cellulitis, currently follows up with Dr Serrano of podiatry, here to be seen by bibliographic services specialist per patient. 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 States wound feels a bit sore, but otherwise feels well w/ no worsening RLE swelling, redness and no malaise f/c/n/v. See exam Possible RLE cellulitis Low grade fever in ED but well yari RLE with chronic appearing shadow ulcer to plantar aspect of R 1st metatarsal, no e/o overt infection at this time -tylenol -dose of abx (prior wound cxs reviewed w/ +morganella morganii) -labs -XR -possible admission (though pt refusing admission at this time) 11/13/18 11:22 02/19/18 12:14 Labs. Foot XR read as possible more soft tissue swelling vs prior plain film, no e/o osteo, old healed fxs seen. Labs unremarkable. ESR and CRP pending but pt refusing to stay for results and refusing admission for IV abx. Rpt vitals improved. Pt appears to have capacity to consent and verbalized understanding of medical risks to himself, including worsening infection, sepsis and . Rx for bactrim and keflex sent to pharmacy (based on prior wound cx). Also given referral for Dr Ulloa of wound care. Aware he can return at anytime to continue evaluation. Pt signed AMA form and IV was removed 02/19/18 13:03 *DC/Admit/Observation/Transfer Diagnosis at time of Disposition: Diabetic foot ulcer Qualifiers: Diabetic foot ulcer location: unspecified part of foot Diabetes mellitus type: type 2 Laterality: right Non-pressure ulcer stage: unspecified non-pressure ulcer stage Qualified Code(s): E11.621 - Type 2 diabetes mellitus with foot ulcer - Discharge Dispostion Disposition: AGAINST MEDICAL ADVICE Condition at time of disposition: Stable - Prescriptions Prescriptions: Cephalexin [Keflex] 500 mg PO Q6H #28 capsule Sulfamethoxazole/Trimethoprim [Bactrim Ds Tablet] 1 each PO BID #14 tablet - Referrals Referrals: Nikita Henao MD [Primary Care Provider] - Ankit Ulloa MD [Staff Physician] - - Patient Instructions Additional Instructions: You have refused further evaluation and admission at this time. Please take antibiotics as prescribed and follow-up with Dr. Ulloa of wound care this week. You are aware that if symptoms worsen, you can return to ER at any time - Post Discharge Activity
[2018-02-19] MEDS ORDERED: PIPERACILLIN/TAZOB 3.375 GM 3.375 GM/50 ML BAG IVPB ONE (11:20)
[2018-02-19] MEDS ORDERED: ACETAMINOPHEN 325 MG TABLET (FP) PO ONE (11:21)
[2018-02-19] MEDS ORDERED: ACETAMINOPHEN 325 MG TABLET (FP) ONE (11:41)
[2018-02-19 11:47] LABS: MCH 28.9 pg (25.7-33.7)
[2018-02-19 11:57] LABS: BASO % 1.3 % (0-2.0); EOS % 1.9 % (0-4.5); LYMPH % 11.2 % (8-40); MCHC 32.4 g/dl (32.0-35.9); MEAN CELL VOLUME 89.2 fl (80-96); MEAN PLT VOLUME 8.8 fl (7.5-11.1); MONO % 10.6 % (3.8-10.2); PLATELET COUNT 293 K/MM3 (134-434); RBC 3.81 M/mm3 (4.00-5.60); RDW 14.3 % (11.9-15.9)
[2018-02-19 12:14] LABS: INR 1.19 (0.83-1.09); PROTHROMBIN TIME (PATIENT) 14.1 SEC (9.7-13.0)
[2018-02-19 12:31] LABS: ALBUMIN 3.2 g/dl (3.4-5.0); ALK PHOS 76 U/L (45-117); ANION GAP 5 MMOL/L (8-16); BILIRUBIN,TOTAL 0.8 mg/dL (0.2-1); BLOOD UREA NITROGEN 21 mg/dL (7-18); CALCIUM 8.9 mg/dL (8.5-10.1); CHLORIDE 102 mmol/L (98-107); CO2 28 mmol/L (21-32); CREATININE 1.3 mg/dL (0.55-1.3); GLUCOSE,RANDOM 214 mg/dL (74-106); POTASSIUM 4.7 mmol/L (3.5-5.1); SGOT/AST 33 U/L (15-37); SGPT/ALT 26 U/L (13-61); SODIUM 135 mmol/L (136-145); TOT PROT 8.2 g/dl (6.4-8.2)
[2018-02-19 12:57] VITALS: BP 148/86; PULSE 88; TEMP 99
== END 2018-02-19 13:14 | disposition left against medical advice (07) ==
LOC: JER 10:08
DX: E11.621 Type 2 diabetes mellitus with foot ulcer (principal); Z79.84 Long term (current) use of oral hypoglycemic drugs; I10 Essential (primary) hypertension; E11.9 Type 2 diabetes mellitus without complications; E66.01 Morbid (severe) obesity due to excess calories; Z68.41 Body mass index [BMI] 40.0-44.9, adult; Z91.013 Allergy to seafood; Z88.8 Allergy status to other drugs, medicaments and biological substances; L97.512 Non-pressure chronic ulcer of other part of right foot with fat layer exposed; Z87.891 Personal history of nicotine dependence
CPT/HCPCS: 36415; 73630-TC-RT-FY; 80053; 85025; 85610; 85651; 86140; 86850; 86900; 86901; 87040; 99283-25

== ENCOUNTER 2018-03-05 16:15 | Inpatient (IN) | payer BC ==
--- NOTE | 2018-03-05 16:37 | PDOC ---
History of Present Illness - General Chief Complaint: Wound Stated Complaint: Wound INFECTION Time Seen by Provider: 03/05/18 16:36 - History of Present Illness Initial Comments: 03/05/18 17:25 52m with pmh of BPH, HTN, DM, who presents to the emergency department with, acute on chronic right lower extremity wound. As per Dr. Holden, ID, she would like him admitted for right foot wound with bone exposed and Picc line placement. The patient was seen in her office earlier today where he received a bone biopsy and wound culture done because he failed outpatient antibiotics. Past History - Past Medical History Allergies/Adverse Reactions: Allergies Allergy/AdvReac Type Severity Reaction Status Date / Time fish derived Allergy Verified 08/14/17 13:20 iodine Allergy Verified 08/14/17 13:20 shellfish derived Allergy Difficulty Verified 08/14/17 13:20 Breathing Home Medications: Ambulatory Orders Atorvastatin Ca [Lipitor] 10 mg PO HS #0 tablet 02/15/13 Enalapril Maleate [Vasotec -] 20 mg PO DAILY #0 tablet 02/15/13 Oxybutynin Chloride [Ditropan -] 5 mg PO DAILY 03/27/16 Amlodipine Besylate [Norvasc -] 10 mg PO DAILY 03/28/16 Furosemide [Lasix -] 40 mg PO DAILY 03/28/16 Glyburide/Metformin HCl [Glyburide-Metformin 2.5-500 mg] 1 each PO BID 03/28/16 Metoprolol Succinate [Toprol XL -] 25 mg PO BID 03/28/16 Methocarbamol [Robaxin -] 750 mg PO BID PRN #20 tablet 05/27/16 Cephalexin [Keflex] 500 mg PO Q6H #28 capsule 02/19/18 Anemia: No Asthma: No Cancer: No Cardiac Disorders: No CVA: No COPD: No CHF: No DVT: No Dementia: No Diabetes: Yes (NIDDM) GI Disorders: Yes (PANCREATITIS) Disorders: No HTN: Yes Hypercholesterolemia: Yes Liver Disease: No Seizures: No Thyroid Disease: No - Surgical History Abdominal Surgery: No Appendectomy: No Cardiac Surgery: No Cholecystectomy: No Lung Surgery: No Neurologic Surgery: No Orthopedic Surgery: Yes (BILATERAL SHOULDER SURGERY) - Family Disease History Family Disease History: Diabetes: Mother, Heart Disease: Father - Immunization History Immunization Up to Date: Yes - Suicide/Smoking/Psychosocial Hx Smoking Status: Yes Smoking History: Never smoked Have you smoked in the past 12 months: No Number of Cigarettes Smoked Daily: 0 If you are a former smoker, when did you quit?: 2007 Information on smoking cessation initiated: No Hx Alcohol Use: No Drug/Substance Use Hx: No Substance Use Type: None Hx Substance Use Treatment: No Review of Systems - Review of Systems Able to Perform ROS?: Yes Is the patient limited Sinhala proficient: No Constitutional: No: Symptoms Reported HEENTM: No: Symptoms Reported Respiratory: No: Symptoms reported Cardiac (ROS): No: Symptoms Reported ABD/GI: No: Symptoms Reported : No: Symptoms Reported Musculoskeletal: No: Symptoms Reported Integumentary: Yes: Other (right plantar foot pain) Neurological: No: Symptoms reported All Other Systems: Reviewed and Negative *Physical Exam - Vital Signs Last Vital Signs Temp Pulse Resp BP Pulse Ox 99.9 F H 85 16 152/92 95 03/05/18 16:20 03/05/18 16:20 03/05/18 16:20 03/05/18 16:20 03/05/18 16:20 - Physical Exam General Appearance: Yes: Nourished, Appropriately Dressed. No: Apparent Distress HEENT: positive: EOMI, SUSI, Normal ENT Inspection Respiratory/Chest: positive: Lungs Clear, Normal Breath Sounds. negative: Chest Tender, Respiratory Distress Cardiovascular: positive: Regular Rhythm, Regular Rate, S1, S2 Gastrointestinal/Abdominal: positive: Normal Bowel Sounds, Flat, Soft. negative : Tender Musculoskeletal: positive: Normal Inspection. negative: CVA Tenderness Extremity: positive: Normal Capillary Refill, Normal Inspection, Normal Range of Motion Integumentary: positive: Other (dry scaly skin and nails, 2cm diameter x1cm deep circular lesion over right plantar ball of the foot with bone exposed) Neurologic: positive: Fully Oriented, Alert, Normal Mood/Affect, Normal Response , Motor Strength 5/5 Moderate Sedation - Procedure Monitoring Vital Signs: Procedure Monitoring Vital Signs Temperature 99.9 F H 03/05/18 16:20 Pulse Rate 85 03/05/18 16:20 Respiratory Rate 16 03/05/18 16:20 Blood Pressure 152/92 03/05/18 16:20 O2 Sat by Pulse Oximetry (%) 95 03/05/18 16:20 ED Treatment Course - LABORATORY CBC & Chemistry Diagram: 03/05/18 17:30 03/05/18 17:30 Medical Decision Making - Medical Decision Making 03/05/18 18:07 Admission labs ordered, started patient on vanc-zosyn. Admitted to hospitalist. *DC/Admit/Observation/Transfer Diagnosis at time of Disposition: Osteomyelitis - Discharge Dispostion Decision to Admit order: Yes - Referrals Referrals: Nikita Henao MD [Primary Care Provider] - - Patient Instructions - Post Discharge Activity
[2018-03-05] MEDS ORDERED: VANCOMYCIN 1 GRAM (PRE-DOCKED) 1,000 MG/250 ML BAG IVPB ONE ×2 (16:44→18:45)
[2018-03-05] MEDS ORDERED: PIPERACILLIN/TAZOB 3.375 GM 3.375 GM in DEXTROSE 5%-WATER - 50 ML IVPB ONE (16:44)
--- NOTE | 2018-03-05 17:08 | PDOC ---
Attending Attestation - HPI HPI: 03/05/18 17:08 The patient is a 52 year old male, with a significant past medical history of BPH, HTN, DM, who presents to the emergency department with, acute on chronic right lower extremity wound. As per Dr. Holden ID, she would like him admitted for right foot wound with bone exposed and Picc line placement. The patient was seen in her office earlier today where he received a bone biopsy and wound culture done because he failed outpatient antibiotics. He denies any recent fevers, chills, headache or dizziness. He denies any recent nausea, vomit, diarrhea or constipation. He denies any recent chest pain or shortness of breath. He denies any recent dysuria, frequency, urgency or hematuria. Allergies: fish derived, iodine, shellfish derived. Past surgical history: Bilateral rotator cuff. Primary Care Physician: Dr. Henao Flat Clothier: Dr. Gunderson - Physicial Exam PE: 03/05/18 17:08 +GENERAL: Morbidly obese. Well-appearing, well-nourished. No apparent distress. HEENT: Normocephalic, atraumatic. PERRL, EOM intact. CARDIOVASCULAR: Normal S1, S2. Regular rate and rhythm. PULMONARY: Clear to auscultation bilaterally. +ABDOMEN: Protuberant. Soft, non-distended, non-tender. +EXTREMITIES: Right foot, large 4cm x 2cm deep non-healing diabetic ulcer with bone exposure. SKIN: Warm, dry. No rash NEUROLOGICAL: No focal neurological deficits. <Liv Solitario - Last Filed: 03/05/18 17:08> - Resident Resident Name: Russel Bridges - ED Attending Attestation I have performed the following: I have examined & evaluated the patient, The case was reviewed & discussed with the resident, I agree w/resident's findings & plan, Exceptions are as noted - Medical Decision Making 03/05/18 18:15 this pt has had chronic nonhealing diabetic foot wounds, seen today at [facility] and he has exposed bone on sole of right foot -he has h/o osteomylitis -he'll requires vanco/zosyn tonight and the oxygen therapy teacher plan is for PICC placement -wound culture already sent earlier today Dr Holden has already consulted on this patient -he has low grade temp 99.9 -reviewed labs,no leukocytosis ADMIT med/surg <Nicole Diaz - Last Filed: 03/05/18 18:20> Attestations - Attestations 03/05/18 17:09 Documentation prepared by Liv Solitario, acting as medical/surgery registered nurse for Nicole Diaz MD. <Liv Solitario - Last Filed: 03/05/18 17:08>
[2018-03-05 17:50] LABS: BASO % 0.9 % (0-2.0); EOS % 2.8 % (0-4.5); HEMATOCRIT 30.8 % (35.4-49); HEMOGLOBIN 10.6 GM/dL (11.7-16.9); LYMPH % 15.8 % (8-40); MCH 30.4 pg (25.7-33.7); MCHC 34.4 g/dl (32.0-35.9); MEAN CELL VOLUME 88.4 fl (80-96); MEAN PLT VOLUME 7.8 fl (7.5-11.1); MONO % 7.7 % (3.8-10.2); NEUT % 72.8 % (42.8-82.8); PLATELET COUNT 324 K/MM3 (134-434); RBC 3.48 M/mm3 (4.00-5.60); RDW 14.7 % (11.9-15.9); WHITE BLOOD COUNT 5.9 K/mm3 (4.0-10.0)
--- NOTE | 2018-03-05 18:00 | HP ---
Admitting History and Physical - Primary Care Physician PCP: Nikita Henao - Admission Chief Complaint: Diabetic ulcer History of Present Illness: 52 YEAR OLD MALE with h/o DMII, BPH, HTN, HLD with chronic right foot diabetic ulcer who was seen for a routine podiatry visit, As per patient wound has been present for approximately two years and he has tried various abx regimens and therapy without success. Most recently he was taking cephalexin 500mg four times daily. However, after his routine foot visit today, he was thought to have osteomyelitis and referred to ED for admission with plans for PICC line placement for skilled nursing abx infusion. 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 No: AFIB, Aneurysm, Aortic Insufficiency, Aortic Stenosis, CAD, CHF, Deep Vein Thrombosis, RI, Mitral Insufficiency, Mitral Stenosis, Murmur, Pulmonary Hypertension, Other Pulmonary: No: Asthma, Bronchitis, Cancer, COPD, O2 Dependent, Pneumonia, Previously Intubated, Pulmonary Embolus, Pulmonary Fibrosis, Sleep Apnea, Other Gastrointestinal: No: Ascites, Cancer, Constipation, Crohn's Disease, Diverticulitis, Diverticulosis, Esophageal Varices, Gastritis, GERD, GI Bleed, Hemorrhoids, Hiatal Hernia, Inflamatory Bowel Disease, Irritable Bowel Disease, Pancreatitis, Peptic Ulcer Disease, Ulcerative Colitis, Other Hepatobiliary: No: Cirrhosis, Cholelithiasis, Cholecystitis, Choledocholithiasis , Hepatitis A, Hepatitis B, Hepatitis C, Other Renal/: Yes: Renal Inusuff Heme/Onc: No: Anemia, B12 Deficiency, Bleeding Disorder, Cancer, Current Chemotherapy, Current Radiation Therapy, Hemochromatosis, Hypercoaguable State, Myeloproliferative Synd, Sickle Cell Disease, Sickle Cell Trait, Thrombocytopenia, Other Infectious Disease: No: AIDS, C-Diff, Herpes Zoster, HIV, MRSA, STD's, Tuberculosis, VREF, Other Psych: No: Addictions, Anxiety, Bipolar, Depression, Panic, Psychosis, Schizophrenia, Other Musculoskeletal: No: Bursitis, Chronic low back pain, Hemiparesis, Hemiplegia, Osteoarthritis, Paraplegia, Other Rheumatology: No: Fibromyalgia, Gout, Lupus, Rheumatoid Arthritis, Sarcoidosis, Vasculitis, Other ENT: No: Allergic Rhinitis, Sinusitis, Other Endocrine: Yes: Diabetes Mellitus - Past Surgical History Additional Past Surgical History: b/l rotator cuff repair - Smoking History Smoking history: Former smoker (h/o 1.5PPD x 15yrs) Have you smoked in the past 12 months: No Aproximately how many cigarettes per day: 0 If you are a former smoker, when did you quit?: 2007 - Alcohol/Substance Use Hx Alcohol Use: Yes (socially ) History of Substance Use: reports: None - Social History Usual Living Arrangement: Yes: Alone ADL: Independent Occupation: [employer] History of Recent Travel: No Other Social History: Exercise: none. Diet: not balanced Home Medications - Allergies Allergies/Adverse Reactions: Allergies Allergy/AdvReac Type Severity Reaction Status Date / Time fish derived Allergy Verified 08/14/17 13:20 iodine Allergy Verified 08/14/17 13:20 shellfish derived Allergy Difficulty Verified 08/14/17 13:20 Breathing - Home Medications Home Medications: Ambulatory Orders Atorvastatin Ca [Lipitor] 10 mg PO HS #0 tablet 02/15/13 Enalapril Maleate [Vasotec -] 20 mg PO DAILY #0 tablet 02/15/13 Oxybutynin Chloride [Ditropan -] 5 mg PO DAILY 03/27/16 Amlodipine Besylate [Norvasc -] 10 mg PO DAILY 03/28/16 Furosemide [Lasix -] 40 mg PO DAILY 03/28/16 Glyburide/Metformin HCl [Glyburide-Metformin 2.5-500 mg] 1 each PO BID 03/28/16 Metoprolol Succinate [Toprol XL -] 25 mg PO BID 03/28/16 Methocarbamol [Robaxin -] 750 mg PO BID PRN #20 tablet 05/27/16 Cephalexin [Keflex] 500 mg PO Q6H #28 capsule 02/19/18 Family Disease History - Family Disease History Family Disease History: Diabetes: Mother ( at age 69), Brother, Heart Disease: Father (HTN at age 76), Mother, Respiratory: Sister (asthma) Review of Systems - Review of Systems Constitutional: reports: No Symptoms Eyes: reports: No Symptoms HENT: reports: No Symptoms Neck: reports: No Symptoms Cardiovascular: reports: No Symptoms Respiratory: reports: No Symptoms Genitourinary: reports: No Symptoms Musculoskeletal: reports: No Symptoms Integumentary: reports: Change in Color, Erythema, Rash, Wound Neurological: reports: No Symptoms Endocrine: reports: No Symptoms Hematology/Lymphatic: reports: No Symptoms Psychiatric: reports: No Symptoms Physical Examination Vital Signs: Vital Signs Temperature 99.9 F H 03/05/18 16:20 Pulse Rate 85 03/05/18 16:20 Respiratory Rate 16 03/05/18 16:20 Blood Pressure 152/92 03/05/18 16:20 O2 Sat by Pulse Oximetry (%) 95 03/05/18 16:20 Constitutional: Yes: Well Nourished, No Distress, Calm Eyes: Yes: Conjunctiva Clear, EOM Intact, PERRL, Other (exopthalmus) HENT: Yes: Atraumatic, Normocephalic Neck: Yes: Supple Cardiovascular: Yes: Regular Rate and Rhythm Respiratory: Yes: WNL, Regular, CTA Bilaterally Gastrointestinal: Yes: Normal Bowel Sounds, Soft, Abdomen, Obese ...Rectal Exam: Yes: Deferred Musculoskeletal: Yes: WNL Extremities: Yes: Cool, Delayed Capillary Refill, Erythema Edema: Yes Edema: LLE: Trace, RLE: Trace Peripheral Pulses WNL: No Peripheral Pulses: Left Doralis Pedis: 1+, Right Dorsalis Pedis: 1+ Integumentary: Yes: Venous Stasis Changes Wound/Incision: Yes: Dressing Dry and Intact, Dressing Removed (wound visualized , measures 2.8cm x 3.2cm x 1.0cm with serosangineous drainage there is tunneling with exposed tendon and visible bony prominence.) Neurological: Yes: Alert, Oriented, Cran Nerves II-XII Intact ...Motor Strength: WNL Psychiatric: Yes: Alert, Oriented Labs: CBC, BMP 03/05/18 17:30 Problem List - Problems (1) Osteomyelitis Assessment/Plan: -ID Dr. Holden following -f/u wound and blood cultures. -MRI tomorrow -weight based vanco 1.5G BID -check vanco level after 3rd third dose -PICC line placement Code(s): M86.9 - OSTEOMYELITIS, UNSPECIFIED (2) BPH (benign prostatic hyperplasia) Assessment/Plan: continue oxybutynin -monitor for urinary retention Code(s): N40.0 - BENIGN PROSTATIC HYPERPLASIA WITHOUT LOWER URINRY TRACT SYMP (3) Diabetic foot ulcer Assessment/Plan: wound care BID podiatry following, recommendations appreciated Code(s): E11.621 - TYPE 2 DIABETES MELLITUS WITH FOOT ULCER; L97.509 - NON- PRESSURE CHRONIC ULCER OTH PRT UNSP FOOT W UNSP SEVERITY Qualifiers: Diabetic foot ulcer location: unspecified part of foot Diabetes mellitus type: type 2 Laterality: right Non-pressure ulcer stage: unspecified non- pressure ulcer stage Qualified Code(s): E11.621 - Type 2 diabetes mellitus with foot ulcer; L97.519 - Non-pressure chronic ulcer of other part of right foot with unspecified severity (4) Obesity Assessment/Plan: diabetic diet importance of weight loss emphasized Code(s): E66.9 - OBESITY, UNSPECIFIED Qualifiers: Obesity type: due to excess calories Serious obesity comorbidity presence: with serious comorbidity Body mass index: BMI 45.0-49.9 (5) Renal insufficiency Assessment/Plan: monitor renal function trend electrolytes and replete as necessary LAsix 40mg daily Code(s): N28.9 - DISORDER OF KIDNEY AND URETER, UNSPECIFIED (6) HTN (hypertension) Assessment/Plan: cont Toprol XL 25mg BID c/w norvasc 10mg daily c/w enalapril 20mg daily low salt diet Code(s): I10 - ESSENTIAL (PRIMARY) HYPERTENSION (7) Prophylactic measure Assessment/Plan: fall precautions OOB to chair SC heparin BID Code(s): Z29.9 - ENCOUNTER FOR PROPHYLACTIC MEASURES, UNSPECIFIED (8) Hyperlipidemia LDL goal <100 Assessment/Plan: continue with lipitor 10mg qhs Code(s): E78.5 - HYPERLIPIDEMIA, UNSPECIFIED (9) Diabetes type 2, uncontrolled Assessment/Plan: start ASA 81mg daily Start levemir 5units qhs hold oral meds insulin sliding scale f/u A1C and lipid panel Code(s): E11.65 - TYPE 2 DIABETES MELLITUS WITH HYPERGLYCEMIA Assessment/Plan DISPO: OOB to chair Full code Visit type - Emergency Visit Emergency Visit: Yes ED Registration Date: 03/05/18 Care time: The patient presented to the Emergency Department on the above date and was hospitalized for further evaluation of their emergent condition. - New Patient This patient is new to me today: Yes Date on this admission: 03/05/18 - Critical Care Critical Care patient: No
[2018-03-05 18:04] LABS: INR 1.21 (0.83-1.09); PROTHROMBIN TIME (PATIENT) 14.3 SEC (9.7-13.0)
[2018-03-05 18:06] LABS: ACTIVATED PTT 29.9 SECONDS (25.2-36.5)
[2018-03-05 18:24] LABS: ALK PHOS 84 U/L (45-117); ANION GAP 6 MMOL/L (8-16); BILIRUBIN,TOTAL 0.3 mg/dL (0.2-1); BLOOD UREA NITROGEN 26 mg/dL (7-18); CALCIUM 8.7 mg/dL (8.5-10.1); CHLORIDE 98 mmol/L (98-107); CO2 32 mmol/L (21-32); CREATININE 1.4 mg/dL (0.55-1.3); GLUCOSE,RANDOM 260 mg/dL (74-106); POTASSIUM 4.2 mmol/L (3.5-5.1); SGOT/AST 15 U/L (15-37); SGPT/ALT 26 U/L (13-61); SODIUM 136 mmol/L (136-145); TOT PROT 7.8 g/dl (6.4-8.2)
[2018-03-05] MEDS ORDERED: PIPERACILLIN/TAZOB 3.375 GM 3.375 GM/50 ML BAG IVPB ONE (18:45)
[2018-03-05] MEDS ORDERED: METHOCARBAMOL 750 MG TABLET PO PRN (19:29)
[2018-03-05] MEDS ORDERED: PICC LINE 8 ML FLUSH PROTOCOL IVPUSH PRN (19:34)
[2018-03-05] MEDS ORDERED: VANCOMYCIN 1,500 MG in DEXTROSE 5%-WATER - 250 ML IVPB ONE (20:00)
[2018-03-05] MEDS ORDERED: VANCOMYCIN 1,500 MG in DEXTROSE 5%-WATER - 500 ML IVPB ONE (20:00)
[2018-03-05] MEDS ORDERED: INSULIN (LEVEMIR) 100 UNITS/ML UNITS SQ SCH (22:00)
[2018-03-05] MEDS ORDERED: INSULIN (NOVOLOG) ASPART 100 UNITS/ML 10ML VIAL ONE (22:02)
[2018-03-05] MEDS ORDERED: ACETAMINOPHEN 500 MG TABLET (FP) PO PRN (22:07)
[2018-03-05] MEDS ORDERED: DOCUSATE SODIUM 100 MG CAPSULE (FP) PO PRN (22:07)
[2018-03-05] MEDS: oxyCODONE HCL 5 MG TABLET PO PRN (22:23)
[2018-03-05] MEDS: metoPROLOL SUCCINATE 25 MG TAB.SR.24H (FP) PO SCH (22:24)
[2018-03-05] MEDS: ATORVASTATIN CA 20 MG TABLET (FP) PO SCH (22:24)
[2018-03-05] MEDS: HEPARIN NA (PORCINE) 5,000 UNITS/ML 1ML VIAL SQ SCH (22:25)
[2018-03-05] MEDS: INSULIN SLIDING SCALE (NOVOLOG) 1 VIAL SQ SCH (22:27)
[2018-03-06 01:28] VITALS: BMI 47.9
[2018-03-06] MEDS ORDERED: VANCOMYCIN 1,500 MG in DEXTROSE 5%-WATER - 500 ML IVPB ONE (05:00)
[2018-03-06] MEDS: oxyCODONE HCL 5 MG TABLET PO PRN (05:36)
[2018-03-06] MEDS: VANCOMYCIN 1,500 MG in DEXTROSE 5%-WATER - 500 ML IVPB SCH ×2 (07:45→21:32)
[2018-03-06 08:09] LABS: BASO % 0.9 % (0-2.0); EOS % 3.5 % (0-4.5); HEMATOCRIT 31.8 % (35.4-49); HEMOGLOBIN 10.1 GM/dL (11.7-16.9); LYMPH % 20.8 % (8-40); MCH 28.3 pg (25.7-33.7); MCHC 31.8 g/dl (32.0-35.9); MEAN PLT VOLUME 7.7 fl (7.5-11.1); MONO % 9.1 % (3.8-10.2); NEUT % 65.7 % (42.8-82.8); PLATELET COUNT 296 K/MM3 (134-434); RBC 3.57 M/mm3 (4.00-5.60); RDW 14.8 % (11.9-15.9); WHITE BLOOD COUNT 4.9 K/mm3 (4.0-10.0)
[2018-03-06 09:00] LABS: ALBUMIN 2.7 g/dl (3.4-5.0); ALK PHOS 76 U/L (45-117); ANION GAP 6 MMOL/L (8-16); BILIRUBIN,TOTAL 0.4 mg/dL (0.2-1); BLOOD UREA NITROGEN 21 mg/dL (7-18); CALCIUM 8.4 mg/dL (8.5-10.1); CHLORIDE 99 mmol/L (98-107); CO2 30 mmol/L (21-32); CREATININE 1.2 mg/dL (0.55-1.3); GLUCOSE,RANDOM 233 mg/dL (74-106); MAGNESIUM 2.1 mg/dL (1.8-2.4); POTASSIUM 4.5 mmol/L (3.5-5.1); SGOT/AST 13 U/L (15-37); SGPT/ALT 24 U/L (13-61); SODIUM 135 mmol/L (136-145); TOT PROT 7.5 g/dl (6.4-8.2)
[2018-03-06] MEDS ORDERED: PT OWN MED DRAWER 7, Y5N ONE (10:19)
[2018-03-06] MEDS ORDERED: PIPERACILLIN/TAZOBACTAM 4.5 GM VIAL IVPB ONE ×2 (10:19→17:25)
[2018-03-06] MEDS ORDERED: DEXTROSE 5%-WATER 100 ML IVPB ONE ×2 (10:20→17:25)
[2018-03-06] MEDS: PIPERACILLIN/TAZOB 4.5 GM 4.5 GM in DEXTROSE 5%-WATER 100 ML IVPB SCH ×2 (10:23→18:15)
[2018-03-06] MEDS: FUROSEMIDE 40 MG TABLET (FP) PO SCH (10:24)
[2018-03-06] MEDS: OXYBUTYNIN CHLORIDE 5 MG TABLET PO SCH (10:24)
[2018-03-06] MEDS: amLODIPine BESYLATE 10 MG TABLET (FP) PO SCH (10:24)
[2018-03-06] MEDS: metoPROLOL SUCCINATE 25 MG TAB.SR.24H (FP) PO SCH ×2 (10:24→21:29)
[2018-03-06] MEDS: HEPARIN NA (PORCINE) 5,000 UNITS/ML 1ML VIAL SQ SCH ×2 (10:24→21:29)
[2018-03-06 10:33] LABS: ERYTHROCYTE SEDIMENTATION RATE 95 mm/hr (0-20)
--- NOTE | 2018-03-06 13:08 | PN ---
Progress Note (short form) - Note Progress Note: Events noted pt showed me photos of his wound on right foot no c/o pain Vital Signs - 24 hr 03/05/18 03/05/18 03/05/18 16:20 19:58 21:00 Temperature 99.9 F H 98.9 F 98.6 F Pulse Rate 85 89 Pulse Rate [ 88 Left Radial] Respiratory 16 19 18 Rate Blood Pressure 152/92 160/95 Blood Pressure 147/68 [Right Arm] O2 Sat by Pulse 95 94 L Oximetry (%) 03/06/18 03/06/18 06:06 09:05 Temperature 98.5 F 98.4 F Pulse Rate 80 82 Pulse Rate [ Left Radial] Respiratory 21 H 18 Rate Blood Pressure 133/90 149/74 Blood Pressure [Right Arm] O2 Sat by Pulse Oximetry (%) Current Medications Generic Name Dose Route Start Last Admin Trade Name Freq PRN Reason Stop Dose Admin Acetaminophen 1,000 mg 03/05/18 22:07 Tylenol - PO Q8H PRN PAIN 4-6 Amlodipine Besylate 10 mg 03/06/18 10:00 03/06/18 10:24 Norvasc - PO 10 mg DAILY REYES Administration Atorvastatin Calcium 10 mg 03/05/18 22:00 03/05/18 22:24 Lipitor - PO 10 mg HS REYES Administration Docusate Sodium 100 mg 03/05/18 22:07 Colace - PO Q8H PRN CONSTIPATION Enalapril Maleate 20 mg 03/06/18 10:00 Vasotec - PO DAILY REYES Furosemide 40 mg 03/06/18 10:00 03/06/18 10:24 Lasix - PO 40 mg DAILY REYES Administration Heparin Sodium (Porcine) 5,000 unit 03/05/18 22:00 03/06/18 10:24 Heparin - SQ 5,000 unit BID REYES Administration IV Flush 8 ml 03/05/18 19:34 Picc Line Flush IVPUSH PRN PRN Protocol Vancomycin HCl 1,500 mg/ 500 mls @ 166.667 mls/hr 03/05/18 19:45 Dextrose IVPB Q12H REYES Protocol Piperacillin Sod/Tazobactam 100 mls @ 200 mls/hr 03/06/18 10:15 03/06/18 10: 23 Sod 4.5 gm/ Dextrose IVPB 200 mls/hr Q8H-IV REYES Administration Protocol Insulin Aspart 1 vial 03/05/18 22:00 03/05/18 22:27 Novolog Vial Sliding Scale - SQ 8 units HS [facility] Administration Protocol Insulin Detemir 15 units 03/06/18 13:05 Levemir Vial SQ HS [facility] Methocarbamol 750 mg 03/05/18 19:29 Robaxin - PO BID PRN MUSCLE SPASMS Metoprolol Succinate 25 mg 03/05/18 22:00 03/06/18 10:24 Toprol Xl - PO 25 mg BID REYES Administration Oxybutynin Chloride 5 mg 03/06/18 10:00 03/06/18 10:24 Ditropan - PO 5 mg DAILY REYES Administration Oxycodone HCl 5 mg 03/05/18 22:07 03/06/18 05:36 Roxicodone - PO 5 mg Q6H PRN Administration PAIN LEVEL 7 - 10 Senna 2 tab 03/06/18 22:00 Senna - PO HS [facility] Laboratory Results - last 24 hr 03/05/18 03/05/18 03/05/18 17:30 17:30 17:30 WBC 5.9 RBC 3.48 L Hgb 10.6 L Hct 30.8 L MCV 88.4 MCH 30.4 MCHC 34.4 RDW 14.7 Plt Count 324 MPV 7.8 D Absolute Neuts (auto) 4.3 Neutrophils % 72.8 Lymphocytes % 15.8 D Monocytes % 7.7 Eosinophils % 2.8 Basophils % 0.9 Nucleated RBC % 0 ESR PT with INR 14.30 H INR 1.21 H PTT (Actin FS) 29.9 Sodium 136 Potassium 4.2 Chloride 98 Carbon Dioxide 32 Anion Gap 6 L BUN 26 H Creatinine 1.4 H Creat Clearance w eGFR 53.01 POC Glucometer Random Glucose 260 H Hemoglobin A1c % Calcium 8.7 Magnesium Total Bilirubin 0.3 AST 15 ALT 26 Alkaline Phosphatase 84 C-Reactive Protein Total Protein 7.8 Albumin 3.0 L TSH Free T4 03/05/18 03/06/18 03/06/18 21:32 05:38 06:30 WBC RBC Hgb Hct MCV MCH MCHC RDW Plt Count MPV Absolute Neuts (auto) Neutrophils % Lymphocytes % Monocytes % Eosinophils % Basophils % Nucleated RBC % ESR PT with INR INR PTT (Actin FS) Sodium 135 L Potassium 4.5 Chloride 99 Carbon Dioxide 30 Anion Gap 6 L BUN 21 H Creatinine 1.2 Creat Clearance w eGFR > 60 POC Glucometer 347 200 Random Glucose 233 H Hemoglobin A1c % Calcium 8.4 L Magnesium 2.1 Total Bilirubin 0.4 AST 13 L ALT 24 Alkaline Phosphatase 76 C-Reactive Protein 8.1 H Total Protein 7.5 Albumin 2.7 L TSH 1.19 D Free T4 03/06/18 03/06/18 03/06/18 06:30 06:30 06:30 WBC 4.9 RBC 3.57 L Hgb 10.1 L Hct 31.8 L MCV 89.0 MCH 28.3 MCHC 31.8 L RDW 14.8 Plt Count 296 MPV 7.7 Absolute Neuts (auto) 3.2 Neutrophils % 65.7 Lymphocytes % 20.8 D Monocytes % 9.1 Eosinophils % 3.5 Basophils % 0.9 Nucleated RBC % 0 ESR 95 H PT with INR INR PTT (Actin FS) Sodium Potassium Chloride Carbon Dioxide Anion Gap BUN Creatinine Creat Clearance w eGFR POC Glucometer Random Glucose Hemoglobin A1c % 10.7 H Calcium Magnesium Total Bilirubin AST ALT Alkaline Phosphatase C-Reactive Protein Total Protein Albumin TSH Free T4 1.07 03/06/18 11:46 WBC RBC Hgb Hct MCV MCH MCHC RDW Plt Count MPV Absolute Neuts (auto) Neutrophils % Lymphocytes % Monocytes % Eosinophils % Basophils % Nucleated RBC % ESR PT with INR INR PTT (Actin FS) Sodium Potassium Chloride Carbon Dioxide Anion Gap BUN Creatinine Creat Clearance w eGFR POC Glucometer 365 Random Glucose Hemoglobin A1c % Calcium Magnesium Total Bilirubin AST ALT Alkaline Phosphatase C-Reactive Protein Total Protein Albumin TSH Free T4 S1 S2 RRR Lungs clear Abd- soft, NT edema+ rt foot dressing in place PLAN ID eval noted wound cultures and bone biopsy done in wound center blood cultures done increase Levemir A1C noted continue with meds will need rn long term care antibiotics and picc line placement Problem List - Problems (1) Diabetes type 2, uncontrolled Code(s): E11.65 - TYPE 2 DIABETES MELLITUS WITH HYPERGLYCEMIA (2) HTN (hypertension) Code(s): I10 - ESSENTIAL (PRIMARY) HYPERTENSION (3) Osteomyelitis Code(s): M86.9 - OSTEOMYELITIS, UNSPECIFIED (4) BPH (benign prostatic hyperplasia) Code(s): N40.0 - BENIGN PROSTATIC HYPERPLASIA WITHOUT LOWER URINRY TRACT SYMP
[2018-03-06] MEDS: ENALAPRIL MALEATE 10 MG TABLET (FP) PO SCH (13:16)
--- NOTE | 2018-03-06 15:16 | PN ---
Progress Note (short form) - Note Progress Note: seen at wound care yesterday he has a plantar wound that extends to bone bone removed and cultured in wound care yesterday feels well low grade temp noted Vital Signs Period Temp Pulse Resp BP Sys/See Pulse Ox Last 24 Hr 97.9 F-98.9 F 80-89 18-21 133-160/68-95 94-98 cor-rrr lungs clear abd soft,nt ext +warmth right lower extremity draining plantar ulcer CBC, BMP 03/06/18 06:30 03/06/18 06:30 Laboratory Tests 08/14/17 08/15/17 02/19/18 14:30 08:49 11:06 ESR 28 H Hemoglobin A1c % C-Reactive Protein 1.8 H 15.2 H 02/19/18 03/06/18 03/06/18 11:30 06:30 06:30 ESR 97 H 95 H Hemoglobin A1c % C-Reactive Protein 8.1 H 03/06/18 06:30 ESR Hemoglobin A1c % 10.7 H C-Reactive Protein a/p osteomyelitis of the right foot f/u cultures vancomycin and zosyn for now spoke with d/c planning will need intermediate iv antibiotics
[2018-03-06] MEDS: ATORVASTATIN CA 20 MG TABLET (FP) PO SCH (21:29)
[2018-03-06] MEDS: SENNOSIDES 8.6MG TABLET (FP) PO SCH (21:29)
[2018-03-06] MEDS: INSULIN (LEVEMIR) 100 UNITS/ML UNITS SQ SCH (21:31)
[2018-03-06] MEDS: INSULIN SLIDING SCALE (NOVOLOG) 1 VIAL SQ SCH (21:32)
[2018-03-07] MEDS ORDERED: PIPERACILLIN/TAZOBACTAM 4.5 GM VIAL IVPB ONE ×3 (02:58→18:17)
[2018-03-07] MEDS ORDERED: DEXTROSE 5%-WATER 100 ML IVPB ONE ×3 (02:59→18:17)
[2018-03-07] MEDS: PIPERACILLIN/TAZOB 4.5 GM 4.5 GM in DEXTROSE 5%-WATER 100 ML IVPB SCH ×3 (03:05→18:23)
[2018-03-07] MEDS: VANCOMYCIN 1,500 MG in DEXTROSE 5%-WATER - 500 ML IVPB SCH ×2 (07:14→20:00)
[2018-03-07 07:36] LABS: BASO % 1.1 % (0-2.0); EOS % 4.9 % (0-4.5); HEMATOCRIT 32.7 % (35.4-49); HEMOGLOBIN 10.3 GM/dL (11.7-16.9); LYMPH % 20.4 % (8-40); MCH 28.1 pg (25.7-33.7); MCHC 31.4 g/dl (32.0-35.9); MEAN CELL VOLUME 89.6 fl (80-96); MEAN PLT VOLUME 8.1 fl (7.5-11.1); MONO % 9.4 % (3.8-10.2); NEUT % 64.2 % (42.8-82.8); PLATELET COUNT 294 K/MM3 (134-434); RBC 3.65 M/mm3 (4.00-5.60); RDW 14.4 % (11.9-15.9); WHITE BLOOD COUNT 4.5 K/mm3 (4.0-10.0)
[2018-03-07 08:09] LABS: ALBUMIN 2.7 g/dl (3.4-5.0); ALK PHOS 74 U/L (45-117); ANION GAP 5 MMOL/L (8-16); BILIRUBIN,TOTAL 0.3 mg/dL (0.2-1); BLOOD UREA NITROGEN 21 mg/dL (7-18); CALCIUM 8.6 mg/dL (8.5-10.1); CHLORIDE 99 mmol/L (98-107); CHOLESTEROL 111 mg/dL (50-200); CO2 31 mmol/L (21-32); CREATININE 1.3 mg/dL (0.55-1.3); GLUCOSE,RANDOM 230 mg/dL (74-106); HDL CHOLESTEROL 46 mg/dL (40-60); POTASSIUM 4.5 mmol/L (3.5-5.1); SGOT/AST 10 U/L (15-37); SGPT/ALT 22 U/L (13-61); SODIUM 135 mmol/L (136-145); TOT PROT 7.4 g/dl (6.4-8.2); TRIGLYCERIDES 79 mg/dL (0-150)
[2018-03-07] MEDS ORDERED: PT OWN MED DRAWER 7, Y5N ONE ×2 (09:46→20:49)
[2018-03-07] MEDS: FUROSEMIDE 40 MG TABLET (FP) PO SCH (09:48)
[2018-03-07] MEDS: ENALAPRIL MALEATE 10 MG TABLET (FP) PO SCH (09:48)
[2018-03-07] MEDS: amLODIPine BESYLATE 10 MG TABLET (FP) PO SCH (09:48)
[2018-03-07] MEDS: metoPROLOL SUCCINATE 25 MG TAB.SR.24H (FP) PO SCH ×2 (09:48→21:11)
[2018-03-07] MEDS: HEPARIN NA (PORCINE) 5,000 UNITS/ML 1ML VIAL SQ SCH ×2 (09:49→21:12)
[2018-03-07] MEDS: OXYBUTYNIN CHLORIDE 5 MG TABLET PO SCH (09:49)
--- NOTE | 2018-03-07 10:28 | OP ---
Operative Note - Note: Operative Date: 03/05/18 Pre-Operative Diagnosis: osteomyelitis under right foot with necrotic tissue grade 3 wound Operation: biopsy of bone under sterile technique and soft tissue debridement Findings: necrotic bone and soft tissue was noted. foul smelling infected wound. Post-Operative Diagnosis: Same as Pre-op Surgeon: Gudelia Gunderson Specimens Removed: Bone and soft tissue Estimated Blood Loss (mls): 5 Instrument used (Debridements only): bone rongeur and scalpel
[2018-03-07] MEDS ORDERED: PORTA CATH FLUSH 10 ML IVPUSH PRN (11:38)
--- NOTE | 2018-03-07 13:10 | PN ---
Progress Note (short form) - Note Progress Note: for tunneled cath today no pain Vital Signs - 24 hr 03/06/18 03/06/18 03/07/18 21:00 21:49 06:35 Temperature 98.1 F 97.7 F Pulse Rate 79 69 Respiratory 20 20 20 Rate Blood Pressure 155/84 135/89 O2 Sat by Pulse 98 Oximetry (%) 03/07/18 03/07/18 03/07/18 08:36 09:00 14:15 Temperature 99.3 F 98.0 F Pulse Rate 83 79 Respiratory 20 20 Rate Blood Pressure 137/84 147/81 O2 Sat by Pulse 98 Oximetry (%) Current Medications Generic Name Dose Route Start Last Admin Trade Name Freq PRN Reason Stop Dose Admin Acetaminophen 1,000 mg 03/05/18 22:07 Tylenol - PO Q8H PRN PAIN 4-6 Amlodipine Besylate 10 mg 03/06/18 10:00 03/07/18 09:48 Norvasc - PO 10 mg DAILY REYES Administration Atorvastatin Calcium 10 mg 03/05/18 22:00 03/06/18 21:29 Lipitor - PO 10 mg HS REYES Administration Collagenase 1 applic 03/07/18 16:15 03/07/18 18:23 Santyl - TP 1 applic DAILY REYES Administration Protocol Docusate Sodium 100 mg 03/05/18 22:07 Colace - PO Q8H PRN CONSTIPATION Enalapril Maleate 20 mg 03/06/18 10:00 03/07/18 09:48 Vasotec - PO 20 mg DAILY REYES Administration Furosemide 40 mg 03/06/18 10:00 03/07/18 09:48 Lasix - PO 40 mg DAILY REYES Administration Heparin Sodium (Porcine) 5,000 unit 03/05/18 22:00 03/07/18 09:49 Heparin - SQ 5,000 unit BID REYES Administration IV Flush 8 ml 03/05/18 19:34 Picc Line Flush IVPUSH PRN PRN Protocol IV Flush 10 ml 03/07/18 11:38 Alfredo-Cath Flush IVPUSH PRN PRN Protocol Vancomycin HCl 1,500 mg/ 500 mls @ 166.667 mls/hr 03/05/18 19:45 03/07/18 07: 14 Dextrose IVPB 166.667 mls/hr Q12H REYES Administration Protocol Piperacillin Sod/Tazobactam 100 mls @ 200 mls/hr 03/06/18 10:15 03/07/18 18: 23 Sod 4.5 gm/ Dextrose IVPB 200 mls/hr Q8H-IV [facility] Administration Protocol Insulin Aspart 1 vial 03/05/18 22:00 03/06/18 21:32 Novolog Vial Sliding Scale - SQ 8 units HS [facility]YES Administration Protocol Insulin Detemir 15 units 03/06/18 13:05 03/06/18 21:31 Levemir Vial SQ 15 units HS REYES Administration Methocarbamol 750 mg 03/05/18 19:29 Robaxin - PO BID PRN MUSCLE SPASMS Metoprolol Succinate 25 mg 03/05/18 22:00 03/07/18 09:48 Toprol Xl - PO 25 mg BID REYES Administration Oxybutynin Chloride 5 mg 03/06/18 10:00 03/07/18 09:49 Ditropan - PO 5 mg DAILY REYES Administration Oxycodone HCl 5 mg 03/05/18 22:07 03/06/18 05:36 Roxicodone - PO 5 mg Q6H PRN Administration PAIN LEVEL 7 - 10 Senna 2 tab 03/06/18 22:00 03/06/18 21:29 Senna - PO 2 tab HS REYES Administration Laboratory Results - last 24 hr 03/06/18 03/07/18 03/07/18 21:31 06:40 06:40 WBC 4.5 RBC 3.65 L Hgb 10.3 L Hct 32.7 L MCV 89.6 MCH 28.1 MCHC 31.4 L RDW 14.4 Plt Count 294 MPV 8.1 Absolute Neuts (auto) 2.9 Neutrophils % 64.2 Lymphocytes % 20.4 Monocytes % 9.4 Eosinophils % 4.9 H Basophils % 1.1 Nucleated RBC % 0 Sodium 135 L Potassium 4.5 Chloride 99 Carbon Dioxide 31 Anion Gap 5 L BUN 21 H Creatinine 1.3 Creat Clearance w eGFR 57.75 POC Glucometer 343 Random Glucose 230 H Calcium 8.6 Total Bilirubin 0.3 AST 10 L ALT 22 Alkaline Phosphatase 74 Total Protein 7.4 Albumin 2.7 L Triglycerides 79 Cholesterol 111 Total LDL Cholesterol 53 HDL Cholesterol 46 03/07/18 06:46 WBC RBC Hgb Hct MCV MCH MCHC RDW Plt Count MPV Absolute Neuts (auto) Neutrophils % Lymphocytes % Monocytes % Eosinophils % Basophils % Nucleated RBC % Sodium Potassium Chloride Carbon Dioxide Anion Gap BUN Creatinine Creat Clearance w eGFR POC Glucometer 264 Random Glucose Calcium Total Bilirubin AST ALT Alkaline Phosphatase Total Protein Albumin Triglycerides Cholesterol Total LDL Cholesterol HDL Cholesterol Lungs clear Abd- soft, NT edema+ rt foot dressing in place PLAN ID eval noted wound cultures and bone biopsy done in wound center blood cultures negative increase Levemir A1C noted continue with meds 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
--- NOTE | 2018-03-07 15:49 | PN ---
Progress Note (short form) - Note Progress Note: he has a plantar wound that extends to bone bone removed and cultured in wound care yesterday feels well low grade temp noted Vital Signs Period Temp Pulse Resp BP Sys/See Pulse Ox Last 24 Hr 97.7 F-99.3 F 69-83 20-20 135-155/81-89 98-98 cor-rrr lungs clear abd soft,nt ext Open plantar ulcer with white tissue visible CBC, BMP 03/07/18 06:40 03/07/18 06:40 Microbiology 03/05/18 17:30 Blood - Peripheral Venous Blood Culture - Preliminary NO GROWTH OBTAINED AFTER 24 HOURS, INCUBATION TO CONTINUE FOR 4 DAYS. 03/05/18 17:00 Blood - Peripheral Venous Blood Culture - Preliminary NO GROWTH OBTAINED AFTER 24 HOURS, INCUBATION TO CONTINUE FOR 4 DAYS. 08/14/17 08/15/17 02/19/18 14:30 08:49 11:06 ESR 28 H Hemoglobin A1c % C-Reactive Protein 1.8 H 15.2 H 02/19/18 03/06/18 03/06/18 11:30 06:30 06:30 ESR 97 H 95 H Hemoglobin A1c % C-Reactive Protein 8.1 H 03/06/18 06:30 ESR Hemoglobin A1c % 10.7 H C-Reactive Protein a/p osteomyelitis of the right foot f/u cultures vancomycin and zosyn for now spoke with d/c planning will need nursing home iv antibiotics exceeds weight limit for MRI (350 [pounds)
--- NOTE | 2018-03-07 15:56 | CONSULT ---
Consult Consult Specialty:: Podiatry Reason for Consultation:: chronic wound right foot tx by Dr Wolf - History of Present Illness Chief Complaint: open wound 2 years submet 1 right History of Present Illness: chronic wound right foot with exposed bone being managed out patient by Dr Wolf according to patient. 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 No: AFIB, Aneurysm, Aortic Insufficiency, Aortic Stenosis, CAD, CHF, Deep Vein Thrombosis, [place], Mitral Insufficiency, Mitral Stenosis, Murmur, Pulmonary Hypertension, Other Pulmonary: No: Asthma, Bronchitis, Cancer, COPD, O2 Dependent, Pneumonia, Previously Intubated, Pulmonary Embolus, Pulmonary Fibrosis, Sleep Apnea, Other Gastrointestinal: No: Ascites, Cancer, Constipation, Crohn's Disease, Diverticulitis, Diverticulosis, Esophageal Varices, Gastritis, GERD, GI Bleed, Hemorrhoids, Hiatal Hernia, Inflamatory Bowel Disease, Irritable Bowel Disease, Pancreatitis, Peptic Ulcer Disease, Ulcerative Colitis, Other Hepatobiliary: No: Cirrhosis, Cholelithiasis, Cholecystitis, Choledocholithiasis , Hepatitis A, Hepatitis B, Hepatitis C, Other Renal/: Yes: Renal Inusuff Infectious Disease: No: AIDS, C-Diff, Herpes Zoster, HIV, MRSA, STD's, Tuberculosis, VREF, Other Psych: No: Addictions, Anxiety, Bipolar, Depression, Panic, Psychosis, Schizophrenia, Other Musculoskeletal: No: Bursitis, Chronic low back pain, Hemiparesis, Hemiplegia, Osteoarthritis, Paraplegia, Other Rheumatology: No: Fibromyalgia, Gout, Lupus, Rheumatoid Arthritis, Sarcoidosis, Vasculitis, Other ENT: No: Allergic Rhinitis, Sinusitis, Other Endocrine: Yes: Diabetes Mellitus - Alcohol/Substance Use Hx Alcohol Use: Yes (socially ) History of Substance Use: reports: None - Smoking History Smoking history: Former smoker Have you smoked in the past 12 months: No Aproximately how many cigarettes per day: 0 If you are a former smoker, when did you quit?: 2007 - Social History Usual Living Arrangement: Alone ADL: Independent 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 [employer] History of Recent Travel: No Home Medications - Allergies Allergies/Adverse Reactions: Allergies Allergy/AdvReac Type Severity Reaction Status Date / Time fish derived Allergy Verified 08/14/17 13:20 iodine Allergy Verified 08/14/17 13:20 shellfish derived Allergy Difficulty Verified 08/14/17 13:20 Breathing - Home Medications Home Medications: Ambulatory Orders Atorvastatin Ca [Lipitor] 10 mg PO HS #0 tablet 02/15/13 Enalapril Maleate [Vasotec -] 20 mg PO DAILY #0 tablet 02/15/13 Oxybutynin Chloride [Ditropan -] 5 mg PO DAILY 03/27/16 Amlodipine Besylate [Norvasc -] 10 mg PO DAILY 03/28/16 Furosemide [Lasix -] 40 mg PO DAILY 03/28/16 Glyburide/Metformin HCl [Glyburide-Metformin 2.5-500 mg] 1 each PO BID 03/28/16 Metoprolol Succinate [Toprol XL -] 25 mg PO BID 03/28/16 Methocarbamol [Robaxin -] 750 mg PO BID PRN #20 tablet 05/27/16 Cephalexin [Keflex] 500 mg PO Q6H #28 capsule 02/19/18 Family Disease History - Family Disease History Family Disease History: Diabetes: Mother ( at age 69), Brother, Heart Disease: Father (HTN at age 76), Mother, Respiratory: Sister (asthma) Physical Exam Vital Signs: Vital Signs Temperature 98.0 F 03/07/18 14:15 Pulse Rate 79 03/07/18 14:15 Respiratory Rate 20 03/07/18 14:15 Blood Pressure 147/81 03/07/18 14:15 O2 Sat by Pulse Oximetry (%) 98 03/07/18 09:00 Extremities: Yes: Other (charcot foot left, chronic wound exposed bone and tendon right, bone biopsy do ne 03/05 in wound care.) Labs: CBC, BMP 03/07/18 06:40 03/07/18 06:40 Assessment/Plan om chronic wound. pt unable do have mri do to weight of 408. hbo consult. xray b/l feet. triphasic bone scan b/l. patient wants to try to save toe. santyl to right foot. discussed with ID. will follow. patient advised to continue to stay off foot. said he would call human resources.
[2018-03-07] MEDS: COLLAGENASE CLOSTRIDIUM HIST. 30 GRAMS TUBE TP SCH ×2 (17:32→18:23)
[2018-03-07] MEDS ORDERED: INSULIN (NOVOLOG) ASPART 100 UNITS/ML 10ML VIAL ONE (20:47)
[2018-03-07] MEDS: SENNOSIDES 8.6MG TABLET (FP) PO SCH (21:11)
[2018-03-07] MEDS: ATORVASTATIN CA 20 MG TABLET (FP) PO SCH (21:11)
[2018-03-07] MEDS: INSULIN SLIDING SCALE (NOVOLOG) 1 VIAL SQ SCH (21:12)
[2018-03-07] MEDS: INSULIN (LEVEMIR) 100 UNITS/ML UNITS SQ SCH (21:12)
[2018-03-08] MEDS ORDERED: PIPERACILLIN/TAZOBACTAM 4.5 GM VIAL IVPB ONE ×2 (01:42→09:25)
[2018-03-08] MEDS ORDERED: DEXTROSE 5%-WATER 100 ML IVPB ONE ×3 (01:42→13:54)
[2018-03-08] MEDS: PIPERACILLIN/TAZOB 4.5 GM 4.5 GM in DEXTROSE 5%-WATER 100 ML IVPB SCH ×2 (01:48→09:43)
[2018-03-08] MEDS ORDERED: PT OWN MED DRAWER 7, Y5N ONE (08:08)
[2018-03-08] MEDS: VANCOMYCIN 1,500 MG in DEXTROSE 5%-WATER - 500 ML IVPB SCH (08:28)
[2018-03-08] MEDS: FUROSEMIDE 40 MG TABLET (FP) PO SCH (09:41)
[2018-03-08] MEDS: amLODIPine BESYLATE 10 MG TABLET (FP) PO SCH (09:42)
[2018-03-08] MEDS: HEPARIN NA (PORCINE) 5,000 UNITS/ML 1ML VIAL SQ SCH ×2 (09:42→21:51)
[2018-03-08] MEDS: OXYBUTYNIN CHLORIDE 5 MG TABLET PO SCH (09:42)
[2018-03-08] MEDS: metoPROLOL SUCCINATE 25 MG TAB.SR.24H (FP) PO SCH ×2 (09:42→21:49)
[2018-03-08] MEDS: ENALAPRIL MALEATE 10 MG TABLET (FP) PO SCH (09:43)
[2018-03-08] MEDS: COLLAGENASE CLOSTRIDIUM HIST. 30 GRAMS TUBE TP SCH (09:46)
--- NOTE | 2018-03-08 10:01 | PN ---
Progress Note (short form) - Note Progress Note: PT seen in bed. VSS, Tmax 98.7 +grade 3 wound right foot sub met 1, +charcot foot left with pretrophic area left, wound cultures reviewed, om? DM stress fx right Awaiting bone scan. Continue Santyl. HBO consult in place. HGBA1C, ESR, CRP. Will follow. comparing old xray left to recent shows severe charcot changes. right foot 02/19/2018 xray shows changes of sessamoid bone also early charcot changes noted with fractures of metatrsals 2&3 right. Will follow.
--- NOTE | 2018-03-08 11:53 | PN ---
Progress Note (short form) - Note Progress Note: pt seen/examined chart reviewed comfortable s/p tunnel catheter Vital Signs Temp 98.1 F 03/08/18 06:00 Pulse 69 03/08/18 06:00 Resp 20 03/08/18 06:00 BP 147/91 03/08/18 06:00 Pulse Ox 98 03/07/18 22:00 Intake & Output 03/07/18 03/07/18 03/08/18 11:59 23:59 11:59 Intake Total 700 1200 100 Output Total 1300 Balance 700 -100 100 Weight 404 lb Intake: IVPB 500 700 100 Oral 200 500 Output: Urine 1300 Void 1300 Other: Voiding Method Toilet Toilet Bowel Movement No No Height 6 ft 5 in Body Mass Index (BMI) 47.9 Active Medications Acetaminophen (Tylenol -) 1,000 mg PO Q8H PRN PRN Reason: PAIN 4-6 Amlodipine Besylate (Norvasc -) 10 mg PO DAILY [facility] Last Admin: 03/08/18 09:42 Dose: 10 mg Atorvastatin Calcium (Lipitor -) 10 mg PO HS [facility] Last Admin: 03/07/18 21:11 Dose: 10 mg Collagenase (Santyl -) 1 applic TP DAILY [facility]; Protocol Last Admin: 03/08/18 09:46 Dose: 1 applic Docusate Sodium (Colace -) 100 mg PO Q8H PRN PRN Reason: CONSTIPATION Enalapril Maleate (Vasotec -) 20 mg PO DAILY [facility] Last Admin: 03/08/18 09:43 Dose: 20 mg Furosemide (Lasix -) 40 mg PO DAILY [facility] Last Admin: 03/08/18 09:41 Dose: 40 mg Heparin Sodium (Porcine) (Heparin -) 5,000 unit SQ BID [facility] Last Admin: 03/08/18 09:42 Dose: 5,000 unit IV Flush (Picc Line Flush) 8 ml IVPUSH PRN PRN PRN Reason: Protocol IV Flush (Alfredo-Cath Flush) 10 ml IVPUSH PRN PRN PRN Reason: Protocol Vancomycin HCl 1,500 mg/ (Dextrose) 500 mls @ 166.667 mls/hr IVPB Q12H [facility]; Protocol Last Admin: 03/08/18 08:28 Dose: 166.667 mls/hr Piperacillin Sod/Tazobactam (Sod 4.5 gm/ Dextrose) 100 mls @ 200 mls/hr IVPB Q8H-IV [facility]; Protocol Last Admin: 03/08/18 09:43 Dose: 200 mls/hr Insulin Aspart (Novolog Vial Sliding Scale -) 1 vial SQ BIDAC [facility]; Protocol Insulin Detemir (Levemir Vial) 15 units SQ HS [facility] Last Admin: 03/07/18 21:12 Dose: 15 units Methocarbamol (Robaxin -) 750 mg PO BID PRN PRN Reason: MUSCLE SPASMS Metoprolol Succinate (Toprol Xl -) 25 mg PO BID [facility] Last Admin: 03/08/18 09:42 Dose: 25 mg Oxybutynin Chloride (Ditropan -) 5 mg PO DAILY [facility] Last Admin: 03/08/18 09:42 Dose: 5 mg Oxycodone HCl (Roxicodone -) 5 mg PO Q6H PRN PRN Reason: PAIN LEVEL 7 - 10 Last Admin: 03/06/18 05:36 Dose: 5 mg Senna (Senna -) 2 tab PO HS [facility] Last Admin: 03/07/18 21:11 Dose: 2 tab CBC, BMP 03/07/18 06:40 03/07/18 06:40 Microbiology 03/05/18 17:30 Blood Culture - Preliminary Blood - Peripheral Venous NO GROWTH OBTAINED AFTER 48 HOURS, INCUBATION TO CONTINUE FOR 3 DAYS. 03/05/18 17:00 Blood Culture - Preliminary Blood - Peripheral Venous NO GROWTH OBTAINED AFTER 48 HOURS, INCUBATION TO CONTINUE FOR 3 DAYS. Physical exam. awake/morbidly obese Lungs clear Abd- soft, NT edema+ rt foot dressing in place PLAN ID eval/ podiatry f/u noted wound cultures and bone biopsy done in wound center blood cultures negative monitor bgm pt has poor insight into disease process -- educated. Diabetic teaching A1C noted continue with meds will need snf antibiotics unable to do bone scan due to weight will follow Problem List - Problems (1) Diabetes type 2, uncontrolled Code(s): E11.65 - TYPE 2 DIABETES MELLITUS WITH HYPERGLYCEMIA (2) HTN (hypertension) Code(s): I10 - ESSENTIAL (PRIMARY) HYPERTENSION (3) Osteomyelitis Code(s): M86.9 - OSTEOMYELITIS, UNSPECIFIED (4) BPH (benign prostatic hyperplasia) Code(s): N40.0 - BENIGN PROSTATIC HYPERPLASIA WITHOUT LOWER URINRY TRACT SYMP
--- NOTE | 2018-03-08 13:31 | PN ---
Progress Note (short form) - Note Progress Note: he has a plantar wound that extends to bone bone removed and cultured in wound care Vital Signs Period Temp Pulse Resp BP Sys/See Pulse Ox Last 24 Hr 98.0 F-98.7 F 69-79 20-20 140-164/80-91 98-98 cor-rrr lungs decreased bs at bases abd soft,nt ext +edema plantar ulcer unchanged CBC, BMP 03/07/18 06:40 03/07/18 06:40 08/14/17 08/15/17 02/19/18 14:30 08:49 11:06 ESR 28 H Hemoglobin A1c % C-Reactive Protein 1.8 H 15.2 H 02/19/18 03/06/18 03/06/18 11:30 06:30 06:30 ESR 97 H 95 H Hemoglobin A1c % C-Reactive Protein 8.1 H 03/06/18 06:30 ESR Hemoglobin A1c % 10.7 H C-Reactive Protein cultures-providencia + anaerobe a/p osteomyelitis of the right foot switch to rocephin 2 grams iv daily and po flagyl 500 tid for another 39 days ( total 6 weeks) weekly labs I can see him in wound care clinic for f/u counselled about etoh and flagyl use spoke with d/c planning will need [facility] iv antibiotics exceeds weight limit for MRI and bone scan (350 [pounds)
[2018-03-08] MEDS: CEFTRIAXONE 2 GM in DEXTROSE 5%-WATER 100 ML IVPB SCH (14:11)
[2018-03-08] MEDS: metroNIDAZOLE 250 MG TABLET PO SCH ×2 (14:12→21:49)
[2018-03-08] MEDS: INSULIN SLIDING SCALE (NOVOLOG) 1 VIAL SQ SCH (16:37)
--- NOTE | 2018-03-08 16:46 | CONSULT ---
- Consultation REQUESTING PROVIDER: CONSULT REQUEST: We have been asked to surgically evaluate this patient for ( Right foot Dm ulcer). PCP:Nikita Henao HISTORY OF PRESENT ILLNESS: 52 y/o M w/ PMHx morbid obesity, DMII, BPH, HTN, HLD with chronic right foot diabetic ulcer sent for admission for PICC line placement/initiation of marketing associate abx for R foot OM. Pt states he has had an ulcer on his R foot for the past 2 years. Reports it initially began as a callous which was debrided by his DPM. Reports healing of the ulcer approx 1 year ago with recurrence over the past few months. States he has been cleaning his foot with alcohol and wrapping it with a dry dressing at home. 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 Denies fever/chills, n/v/d, cp/sob at home. At baseline pt lives home alone, ambulates unlimited blocks without use of assiusted devices. Reports h/o tobacco abuse (1-1.5 ppd x 20 years, quit 15 years ago). Has not seen vascular in the past. Denies cardiac history. PMHx: as above PSHx: b/l rotator cuff repair Home Medications Medication Instructions Recorded Atorvastatin Ca [Lipitor] 10 mg PO HS #0 tablet 02/15/13 Enalapril Maleate [Vasotec -] 20 mg PO DAILY #0 tablet 02/15/13 Oxybutynin Chloride [Ditropan -] 5 mg PO DAILY 03/27/16 Amlodipine Besylate [Norvasc -] 10 mg PO DAILY 03/28/16 Furosemide [Lasix -] 40 mg PO DAILY 03/28/16 Glyburide/Metformin HCl 1 each PO BID 03/28/16 [Glyburide-Metformin 2.5-500 mg] Metoprolol Succinate [Toprol XL -] 25 mg PO BID 03/28/16 Methocarbamol [Robaxin -] 750 mg PO BID PRN #20 tablet 05/27/16 Cephalexin [Keflex] 500 mg PO Q6H #28 capsule 02/19/18 Allergies Allergy/AdvReac Type Severity Reaction Status Date / Time fish derived Allergy Verified 08/14/17 13:20 iodine Allergy Verified 08/14/17 13:20 shellfish derived Allergy Difficulty Verified 08/14/17 13:20 Breathing REVIEW OF SYSTEMS: CONSTITUTIONAL: Absent: fever, chills CARDIOVASCULAR: Absent: chest pain, syncope RESPIRATORY: Absent: cough, shortness of breath GASTROINTESTINAL: Absent: abdominal pain PHYSICAL EXAM: GENERAL: Awake, alert, and fully oriented, in no acute distress. HEAD: Normal with no signs of trauma. LUNGS: Unlabored on RA LOWER EXTREMITIES: R foot with dressing (kerlix) in place with moderate serous drainage. Dressing removed, approximately 2.5x2.5cm ulcer on plantar surface of foot over 1st metacarpal head. Ulcer probes to bone. Fibrinous exudate at center of ulcer, surrounding edges clean based. Scant serous drainage, mild foul odor, no ttp, no erythema or purulent drainage. ++Onycomycosis of all toes. Scaling skin b/l feet. L foot with charcot deformity and 2x2cm callous at medial plantar aspect. Vasc: Biphasic dp/pt b/l Vital Signs Temperature 98.4 F 03/08/18 15:00 Pulse Rate 65 03/08/18 15:00 Respiratory Rate 20 03/08/18 15:00 Blood Pressure 129/88 03/08/18 15:00 O2 Sat by Pulse Oximetry (%) 98 03/08/18 09:00 Lab Results WBC 4.5 K/mm3 (4.0-10.0) 03/07/18 06:40 RBC 3.65 M/mm3 (4.00-5.60) L 03/07/18 06:40 Hgb 10.3 GM/dL (11.7-16.9) L 03/07/18 06:40 Hct 32.7 % (35.4-49) L 03/07/18 06:40 MCV 89.6 fl (80-96) 03/07/18 06:40 MCHC 31.4 g/dl (32.0-35.9) L 03/07/18 06:40 RDW 14.4 % (11.9-15.9) 03/07/18 06:40 Plt Count 294 K/MM3 (134-434) 03/07/18 06:40 Sodium 135 mmol/L (136-145) L 03/07/18 06:40 Potassium 4.5 mmol/L (3.5-5.1) 03/07/18 06:40 Chloride 99 mmol/L (98-107) 03/07/18 06:40 Carbon Dioxide 31 mmol/L (21-32) 03/07/18 06:40 Anion Gap 5 MMOL/L (8-16) L 03/07/18 06:40 BUN 21 mg/dL (7-18) H 03/07/18 06:40 Creatinine 1.3 mg/dL (0.55-1.3) 03/07/18 06:40 Random Glucose 230 mg/dL (74-106) H 03/07/18 06:40 Calcium 8.6 mg/dL (8.5-10.1) 03/07/18 06:40 INR 1.21 (0.83-1.09) H 03/05/18 17:30 A/P: 52 y/o M w/ PMHx morbid obesity, DMII, BPH, HTN, HLD with chronic right foot diabetic ulcer sent for admission for PICC line placement/initiation of marketing associate abx for R foot OM. s/p bone biopsy 03/07 F/U cultures Collagenase to wound with damp to dry dressings overlying and kerlix Plan for PICC line per primary team/ID and HBO Extensive discussion with pt regarding need for control of Diabetes as well as proper foot care including daily foot checks, Diabetic shoes, DPM follow up etc. Pt verbalized understanding all questions answered Pt should f/u in wound care within 1 week of d/c d/w attending Dr Ulloa
[2018-03-08] MEDS ORDERED: INSULIN (NOVOLOG) ASPART 100 UNITS/ML 10ML VIAL ONE (17:16)
--- NOTE | 2018-03-08 18:36 | PATH ---
Surgical Pathology Report Patient Name: FIFI RICHARDSON Med. Rec. #: [id number] /Age/Gender: 1965 (Age: 52) / M Account: [id number] Location: [address] [place] [address]/[facility] Taken: 03/05/2018 Received: 03/06/2018 Reported: 03/08/2018 Physicians: Gudelia Gunderson DPM Specimen(s) Received BONE BX OF THE RIGHT 1ST DIGIT PLANTAR Clinical History Diabetic, hypertension, non-healing diabetic foot wound right plantar first digit Final Diagnosis BONE, FIRST DIGIT PLANTAR, RIGHT, BIOPSY: SCANT BONE WITH REACTIVE CHANGES AND REMODELING. NO ACUTE OSTEOMYELITIS IDENTIFIED. FRAGMENTS OF ACUTELY INFLAMED FIBROUS AND GRANULATION TISSUE. Electronically Signed Catrachita Elizondo M.D. Gross Description Received in formalin labeled "right plantar bone biopsy," is a 0.8 x 0.6 x 0.2 cm aggregate of avery soft tissue and possible bone fragments. The specimen is submitted in toto in one cassette, following decalcification. 03/07/2018 [facility]03/07/2018
[2018-03-08] MEDS: ATORVASTATIN CA 20 MG TABLET (FP) PO SCH (21:49)
[2018-03-08] MEDS: SENNOSIDES 8.6MG TABLET (FP) PO SCH (21:51)
[2018-03-08] MEDS: INSULIN (LEVEMIR) 100 UNITS/ML UNITS SQ SCH (21:51)
[2018-03-09] MEDS ORDERED: INSULIN (NOVOLOG) ASPART 100 UNITS/ML 10ML VIAL SQ ONE (01:00)
[2018-03-09] MEDS: metroNIDAZOLE 250 MG TABLET PO SCH ×3 (06:48→22:10)
[2018-03-09] MEDS: INSULIN SLIDING SCALE (NOVOLOG) 1 VIAL SQ SCH ×2 (06:49→16:58)
[2018-03-09] MEDS ORDERED: PT OWN MED DRAWER 7, Y5N ONE (09:29)
[2018-03-09] MEDS ORDERED: DEXTROSE 5%-WATER 100 ML IVPB ONE (09:29)
[2018-03-09] MEDS: HEPARIN NA (PORCINE) 5,000 UNITS/ML 1ML VIAL SQ SCH ×2 (09:32→22:10)
[2018-03-09] MEDS: ENALAPRIL MALEATE 10 MG TABLET (FP) PO SCH (09:32)
[2018-03-09] MEDS: amLODIPine BESYLATE 10 MG TABLET (FP) PO SCH (09:32)
[2018-03-09] MEDS: FUROSEMIDE 40 MG TABLET (FP) PO SCH (09:32)
[2018-03-09] MEDS: COLLAGENASE CLOSTRIDIUM HIST. 30 GRAMS TUBE TP SCH (09:32)
[2018-03-09] MEDS: metoPROLOL SUCCINATE 25 MG TAB.SR.24H (FP) PO SCH ×2 (09:33→22:10)
[2018-03-09] MEDS: OXYBUTYNIN CHLORIDE 5 MG TABLET PO SCH (09:33)
[2018-03-09] MEDS: CEFTRIAXONE 2 GM in DEXTROSE 5%-WATER 100 ML IVPB SCH (09:33)
--- NOTE | 2018-03-09 12:22 | PN ---
Progress Note (short form) - Note Progress Note: pt seen/ examined chart reviewed awake/comfortable denies pain wants to go home Vital Signs Temp 98.4 F 03/09/18 09:08 Pulse 80 03/09/18 09:08 Resp 20 03/09/18 09:08 BP 120/77 03/09/18 09:08 Pulse Ox 98 03/09/18 09:00 Intake & Output 03/08/18 03/09/18 03/09/18 23:59 11:59 23:59 Intake Total 1475 450 Balance 1475 450 Intake: IVPB 650 Oral 825 450 Other: Voiding Method Toilet Toilet # Unmeasured Voids Void 3 Bowel Movement Yes Active Medications Acetaminophen (Tylenol -) 1,000 mg PO Q8H PRN PRN Reason: PAIN 4-6 Amlodipine Besylate (Norvasc -) 10 mg PO DAILY [facility] Last Admin: 03/09/18 09:32 Dose: 10 mg Atorvastatin Calcium (Lipitor -) 10 mg PO HS [facility] Last Admin: 03/08/18 21:49 Dose: 10 mg Collagenase (Santyl -) 1 applic TP DAILY [facility]; Protocol Last Admin: 03/09/18 09:32 Dose: 1 applic Docusate Sodium (Colace -) 100 mg PO Q8H PRN PRN Reason: CONSTIPATION Enalapril Maleate (Vasotec -) 20 mg PO DAILY [facility] Last Admin: 03/09/18 09:32 Dose: 20 mg Furosemide (Lasix -) 40 mg PO DAILY [facility] Last Admin: 03/09/18 09:32 Dose: 40 mg Heparin Sodium (Porcine) (Heparin -) 5,000 unit SQ BID [facility] Last Admin: 03/09/18 09:32 Dose: 5,000 unit IV Flush (Picc Line Flush) 8 ml IVPUSH PRN PRN PRN Reason: Protocol IV Flush (Alfredo-Cath Flush) 10 ml IVPUSH PRN PRN PRN Reason: Protocol Ceftriaxone Sodium 2 gm/ (Dextrose) 100 mls @ 100 mls/hr IVPB DAILY [facility]; Protocol Last Admin: 03/09/18 09:33 Dose: 100 mls/hr Insulin Aspart (Novolog Vial Sliding Scale -) 1 vial SQ TIDAC [facility]; Protocol Insulin Detemir (Levemir Vial) 18 units SQ [facility] Methocarbamol (Robaxin -) 750 mg PO BID PRN PRN Reason: MUSCLE SPASMS Metoprolol Succinate (Toprol Xl -) 25 mg PO BID [facility] Last Admin: 03/09/18 09:33 Dose: 25 mg Metronidazole (Flagyl -) 500 mg PO TID [facility] Last Admin: 03/09/18 06:48 Dose: 500 mg Oxybutynin Chloride (Ditropan -) 5 mg PO DAILY [facility] Last Admin: 03/09/18 09:33 Dose: 5 mg Senna (Senna -) 2 tab PO HS [facility] Last Admin: 03/08/18 21:51 Dose: Not Given CBC, BMP 03/07/18 06:40 03/08/18 22:00 Microbiology 03/05/18 17:30 Blood Culture - Preliminary Blood - Peripheral Venous NO GROWTH OBTAINED AFTER 72 HOURS, INCUBATION TO CONTINUE FOR 2 DAYS. 03/05/18 17:00 Blood Culture - Preliminary Blood - Peripheral Venous NO GROWTH OBTAINED AFTER 72 HOURS, INCUBATION TO CONTINUE FOR 2 DAYS. bgm -- noted Physical exam. awake/morbidly obese Lungs clear Abd- soft, NT edema+ rt foot dressing in place PLAN ID eval/ podiatry f/u noted wound cultures and bone biopsy done in wound center blood cultures negative monitor bgm-- elevated - adjust insulin pt has poor insight into disease process -- educated. Diabetic teaching A1C noted continue with meds will need correction antibiotics unable to do bone scan due to weight discussed with pillowcase cutter-- likely discharge on sunday-- arrangements being made for home abx will follow Problem List - Problems (1) Diabetes type 2, uncontrolled Code(s): E11.65 - TYPE 2 DIABETES MELLITUS WITH HYPERGLYCEMIA (2) HTN (hypertension) Code(s): I10 - ESSENTIAL (PRIMARY) HYPERTENSION (3) Osteomyelitis Code(s): M86.9 - OSTEOMYELITIS, UNSPECIFIED (4) BPH (benign prostatic hyperplasia) Code(s): N40.0 - BENIGN PROSTATIC HYPERPLASIA WITHOUT LOWER URINRY TRACT SYMP
[2018-03-09] MEDS ORDERED: INSULIN (NOVOLOG) ASPART 100 UNITS/ML 10ML VIAL ONE (21:09)
[2018-03-09] MEDS ORDERED: INSULIN (LEVEMIR) 100 UNITS/ML UNITS SQ SCH (22:00)
[2018-03-09] MEDS: ATORVASTATIN CA 20 MG TABLET (FP) PO SCH (22:09)
[2018-03-09] MEDS: SENNOSIDES 8.6MG TABLET (FP) PO SCH (22:10)
[2018-03-10] MEDS: metroNIDAZOLE 250 MG TABLET PO SCH ×3 (06:36→21:22)
[2018-03-10] MEDS: INSULIN SLIDING SCALE (NOVOLOG) 1 VIAL SQ SCH ×3 (06:37→16:46)
[2018-03-10] MEDS ORDERED: PT OWN MED DRAWER 7, Y5N ONE (09:06)
[2018-03-10] MEDS ORDERED: DEXTROSE 5%-WATER 100 ML IVPB ONE (09:06)
[2018-03-10] MEDS: HEPARIN NA (PORCINE) 5,000 UNITS/ML 1ML VIAL SQ SCH ×2 (09:41→21:22)
[2018-03-10] MEDS: amLODIPine BESYLATE 10 MG TABLET (FP) PO SCH (09:42)
[2018-03-10] MEDS: FUROSEMIDE 40 MG TABLET (FP) PO SCH (09:42)
[2018-03-10] MEDS: ENALAPRIL MALEATE 10 MG TABLET (FP) PO SCH (09:42)
[2018-03-10] MEDS: CEFTRIAXONE 2 GM in DEXTROSE 5%-WATER 100 ML IVPB SCH (09:42)
[2018-03-10] MEDS: OXYBUTYNIN CHLORIDE 5 MG TABLET PO SCH (09:42)
[2018-03-10] MEDS: COLLAGENASE CLOSTRIDIUM HIST. 30 GRAMS TUBE TP SCH (09:42)
[2018-03-10] MEDS: metoPROLOL SUCCINATE 25 MG TAB.SR.24H (FP) PO SCH ×2 (09:42→21:22)
[2018-03-10] MEDS ORDERED: INSULIN (LEVEMIR) 100 UNITS/ML UNITS SQ SCH (11:43)
--- NOTE | 2018-03-10 11:44 | PN ---
Progress Note (short form) - Note Progress Note: awake/ comfortable all f/u noted no new issues Vital Signs Temp 98.4 F 03/10/18 09:00 Pulse 80 03/10/18 09:00 Resp 20 03/10/18 09:00 BP 120/72 03/10/18 09:00 Pulse Ox 98 03/10/18 09:00 Intake & Output 03/09/18 03/09/18 03/10/18 11:59 23:59 11:59 Intake Total 450 775 100 Output Total 400 Balance 450 775 -300 Intake: IVPB 100 100 Oral 450 675 Output: Urine 400 Void 400 Other: Voiding Method Toilet Toilet Toilet # Unmeasured Voids Void 1 Bowel Movement No Yes # Bowel Movements 1 Active Medications Acetaminophen (Tylenol -) 1,000 mg PO Q8H PRN PRN Reason: PAIN 4-6 Amlodipine Besylate (Norvasc -) 10 mg PO DAILY [facility] Last Admin: 03/10/18 09:42 Dose: 10 mg Atorvastatin Calcium (Lipitor -) 10 mg PO HS [facility] Last Admin: 03/09/18 22:09 Dose: 10 mg Collagenase (Santyl -) 1 applic TP DAILY [facility]; Protocol Last Admin: 03/10/18 09:42 Dose: 1 applic Docusate Sodium (Colace -) 100 mg PO Q8H PRN PRN Reason: CONSTIPATION Enalapril Maleate (Vasotec -) 20 mg PO DAILY [facility] Last Admin: 03/10/18 09:42 Dose: 20 mg Furosemide (Lasix -) 40 mg PO DAILY [facility] Last Admin: 03/10/18 09:42 Dose: 40 mg Heparin Sodium (Porcine) (Heparin -) 5,000 unit SQ BID [facility] Last Admin: 03/10/18 09:41 Dose: 5,000 unit IV Flush (Picc Line Flush) 8 ml IVPUSH PRN PRN PRN Reason: Protocol IV Flush (Alfredo-Cath Flush) 10 ml IVPUSH PRN PRN PRN Reason: Protocol Ceftriaxone Sodium 2 gm/ (Dextrose) 100 mls @ 100 mls/hr IVPB DAILY [facility]; Protocol Last Admin: 03/10/18 09:42 Dose: 100 mls/hr Insulin Aspart (Novolog Vial Sliding Scale -) 1 vial SQ TIDAC [facility]; Protocol Last Admin: 03/10/18 06:37 Dose: 5 units Insulin Detemir (Levemir Vial) 20 units SQ HS [facility] Methocarbamol (Robaxin -) 750 mg PO BID PRN PRN Reason: MUSCLE SPASMS Metoprolol Succinate (Toprol Xl -) 25 mg PO BID [facility] Last Admin: 03/10/18 09:42 Dose: 25 mg Metronidazole (Flagyl -) 500 mg PO TID [facility] Last Admin: 03/10/18 06:36 Dose: 500 mg Oxybutynin Chloride (Ditropan -) 5 mg PO DAILY [facility] Last Admin: 03/10/18 09:42 Dose: 5 mg Senna (Senna -) 2 tab PO HS [facility] Last Admin: 03/09/18 22:10 Dose: 2 tab CBC, BMP 03/07/18 06:40 03/08/18 22:00 Microbiology 03/05/18 17:30 Blood Culture - Preliminary Blood - Peripheral Venous NO GROWTH OBTAINED AFTER 96 HOURS, INCUBATION TO CONTINUE FOR 1 DAYS. 03/05/18 17:00 Blood Culture - Preliminary Blood - Peripheral Venous NO GROWTH OBTAINED AFTER 96 HOURS, INCUBATION TO CONTINUE FOR 1 DAYS. Physical exam. awake/morbidly obese Lungs clear Abd- soft, NT edema+ rt foot dressing in place PLAN ID eval/ podiatry f/u noted wound cultures and bone biopsy done in wound center blood cultures negative monitor bgm pt has poor insight into disease process -- educated again. 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
--- NOTE | 2018-03-10 13:24 | PN ---
Progress Note (short form) - Note Progress Note: PT seen in bed. Applying for short term disbality. PICC line in place. VSS, Tmax 98.8 +grade 3 wound right foot sub met 1, +charcot foot left with pretrophic area left, wound cultures reviewed, fjnz7y=47.3, esr=81, om? DM stress fx right Awaiting bone scan. Continue Santyl. HBO consult in place. Consult endocrinology for uncontrolled diabetes. Will follow.
[2018-03-10] MEDS ORDERED: INSULIN (NOVOLOG) ASPART 100 UNITS/ML 10ML VIAL ONE (17:20)
[2018-03-10] MEDS: SENNOSIDES 8.6MG TABLET (FP) PO SCH (21:22)
[2018-03-10] MEDS: ATORVASTATIN CA 20 MG TABLET (FP) PO SCH (21:22)
[2018-03-11] MEDS: INSULIN SLIDING SCALE (NOVOLOG) 1 VIAL SQ SCH ×2 (06:14→11:55)
[2018-03-11] MEDS: metroNIDAZOLE 250 MG TABLET PO SCH ×2 (06:15→15:24)
[2018-03-11] MEDS ORDERED: PT OWN MED DRAWER 7, Y5N ONE (09:09)
[2018-03-11] MEDS ORDERED: DEXTROSE 5%-WATER 100 ML IVPB ONE (09:09)
[2018-03-11] MEDS: OXYBUTYNIN CHLORIDE 5 MG TABLET PO SCH (09:44)
[2018-03-11] MEDS: HEPARIN NA (PORCINE) 5,000 UNITS/ML 1ML VIAL SQ SCH (09:44)
[2018-03-11] MEDS: CEFTRIAXONE 2 GM in DEXTROSE 5%-WATER 100 ML IVPB SCH (09:45)
[2018-03-11] MEDS: FUROSEMIDE 40 MG TABLET (FP) PO SCH (09:45)
[2018-03-11] MEDS: metoPROLOL SUCCINATE 25 MG TAB.SR.24H (FP) PO SCH (09:45)
[2018-03-11] MEDS: ENALAPRIL MALEATE 10 MG TABLET (FP) PO SCH (09:45)
[2018-03-11] MEDS: amLODIPine BESYLATE 10 MG TABLET (FP) PO SCH (09:45)
[2018-03-11] MEDS ORDERED: INSULIN (LEVEMIR) 100 UNITS/ML UNITS SQ SCH (13:04)
--- NOTE | 2018-03-11 13:07 | DS ---
Physical Examination Vital Signs: Vital Signs Temperature 98 F 03/11/18 09:48 Pulse Rate 76 03/11/18 09:48 Respiratory Rate 18 03/11/18 09:48 Blood Pressure 160/82 03/11/18 09:48 O2 Sat by Pulse Oximetry (%) 98 03/11/18 09:00 Findings/Remarks: comfortable wants to go home arrangements being made no complains Constitutional: Yes: No Distress, Calm, Obese Neck: Yes: Supple Cardiovascular: Yes: Regular Rate and Rhythm Respiratory: Yes: CTA Bilaterally Gastrointestinal: Yes: Soft, Abdomen, Obese Wound/Incision: Yes: Dressing Dry and Intact Neurological: Yes: Alert Labs: CBC, BMP 03/07/18 06:40 03/08/18 22:00 Discharge Summary Reason For Visit: OSTEOMYELITIS Current Active Problems Diabetes type 2, uncontrolled (Acute) HTN (hypertension) (Acute) Hyperlipidemia LDL goal <100 (Acute) Osteomyelitis (Acute) Prophylactic measure (Acute) Hospital Course: admitted for osteo i/v abx bone scan could not be done stable for d/c on abx as per i/d arrangements being made' diabetic teaching provided meds prescribed as needed including insulin f/u as out pt - in one week-- office advised f/u with i/d , wound care as advised endo f/u also as out pt- Dr. Coulter pt in agreement meds reconcilled d/c time approx 40 min in examining / documenting and coordating care . Condition: Good - Instructions Referrals: Nikita Henao MD [Primary Care Provider] - Disposition: HOME - Home Medications Comprehensive Discharge Medication List: Ambulatory Orders Atorvastatin Ca [Lipitor] 10 mg PO HS #0 tablet 02/15/13 Enalapril Maleate [Vasotec -] 20 mg PO DAILY #0 tablet 02/15/13 Oxybutynin Chloride [Ditropan -] 5 mg PO DAILY 03/27/16 Amlodipine Besylate [Norvasc -] 10 mg PO DAILY 03/28/16 Furosemide [Lasix -] 40 mg PO DAILY 03/28/16 Metoprolol Succinate [Toprol XL -] 25 mg PO BID 03/28/16 Methocarbamol [Robaxin -] 750 mg PO BID PRN #20 tablet 05/27/16 Ceftriaxone [Rocephin -] 2 gm IVPB DAILY vial 03/11/18 Collagenase Clostridium Hist. [Santyl -] 1 applic TP DAILY #1 tube 03/11/18 Insulin (Levemir) [Levemir Vial] 24 units SQ HS #1 units 03/11/18 Picc Line Flush [Picc Line Flush -] 8 ml IVPUSH PRN PRN ml 03/11/18 Sennosides [Senna -] 2 tab PO HS tablet 03/11/18 metroNIDAZOLE [Flagyl -] 500 mg PO TID #110 tablet 03/11/18
--- NOTE | 2018-03-11 14:23 | PN ---
Progress Note (short form) - Note Progress Note: ready for discharge today asked to f/u Vital Signs Period Temp Pulse Resp BP Sys/See Pulse Ox Last 24 Hr 98 F-98.4 F 63-76 18-20 119-160/64-82 98-98 cor-rrr lungs clear abd soft,nt ext plantar ulcer unchanged CBC, BMP 03/07/18 06:40 03/08/18 22:00 Laboratory Tests 08/14/17 08/15/17 02/19/18 14:30 08:49 11:06 ESR 28 H Hemoglobin A1c % C-Reactive Protein 1.8 H 15.2 H 02/19/18 03/06/18 03/06/18 11:30 06:30 06:30 ESR 97 H 95 H Hemoglobin A1c % C-Reactive Protein 8.1 H 03/06/18 03/08/18 03/09/18 06:30 22:00 06:00 ESR 81 H Hemoglobin A1c % 10.7 H C-Reactive Protein 3.3 H a/p osteomyelitis of the right foot switch to rocephin 2 grams iv daily 36 another days (total 6 weeks), weekly labs I can see him in wound care clinic for f/u next week spoke with d/c planning will need nursing home iv antibiotics exceeds weight limit for MRI and bone scan (350 pounds)
[2018-03-11 15:02] VITALS: BP 126/71; PULSE 80; TEMP 98.5
[2018-03-11] MEDS: COLLAGENASE CLOSTRIDIUM HIST. 30 GRAMS TUBE TP SCH (15:15)
--- NOTE | 2018-03-11 17:07 | EKG ---
Test Reason : Blood Pressure : / mmHG Vent. Rate : 073 BPM Atrial Rate : 073 BPM P-R Int : 164 ms QRS Dur : 100 ms QT Int : 384 ms P-R-T Axes : 051 -30 028 degrees QTc Int : 423 ms NORMAL SINUS RHYTHM LEFT AXIS DEVIATION INFERIOR INFARCT , AGE UNDETERMINED POOR R PROGRESSION ABNORMAL ECG WHEN COMPARED WITH ECG OF 14-AUG-2017 17:20, LIKELY NO SIGNIFICANT CHANGES Confirmed by YOBANY CHRISTIANSEN, MAYANK ([id number]) on 03/11/2018 5:07:40 PM Referred By: RYLEY GROVER Confirmed By:MAYANK HAYWOOD MD
--- NOTE | 2018-03-11 17:12 | PN ---
Progress Note (short form) - Note Progress Note: dm \ patient to follow up for outpatient diabetes care since dcd home will make outpatient apt for diabetic management with pmd and outpatient consult with endocrine
== END 2018-03-11 17:28 | disposition home or self-care (01) | DRG 629 ==
LOC: JER 16:15 → JERBED 18:08 → J6S 20:50
PROVIDERS: ADMIT Internal Medicine; ATTEND Internal Medicine
PROC: 0QBN0ZX Excision of Right Metatarsal, Open Approach, Diagnostic (ICD-10-PCS; principal; 2018-03-07)
PROC: 05HM33Z Insertion of Infusion Device into Right Internal Jugular Vein, Percutaneous Approach (ICD-10-PCS; 2018-03-07)
PROC: B513ZZA Fluoroscopy of Right Jugular Veins, Guidance (ICD-10-PCS; 2018-03-07)
DX: E11.621 Type 2 diabetes mellitus with foot ulcer (principal); Z68.42 Body mass index [BMI] 45.0-49.9, adult; M86.9 Osteomyelitis, unspecified; L97.514 Non-pressure chronic ulcer of other part of right foot with necrosis of bone; B96.89 Other specified bacterial agents as the cause of diseases classified elsewhere; I10 Essential (primary) hypertension; N40.0 Benign prostatic hyperplasia without lower urinary tract symptoms; E78.5 Hyperlipidemia, unspecified; Z87.891 Personal history of nicotine dependence; E66.01 Morbid (severe) obesity due to excess calories; E11.65 Type 2 diabetes mellitus with hyperglycemia; M14.672 Charcot's joint, left ankle and foot; Z79.4 Long term (current) use of insulin
CPT/HCPCS: 11044; 36415; 36561; 73630-TC-LT; 77001-TC-FY; 80053; 80061; 82947; 82962; 83036; 83721; 83735; 84439; 84443; 85025; 85610; 85651; 85730; 86140; 87040; 87070; 87075; 87077; 87186; 87205; 88305-TC; 88311-TC; 93005; 93010; 99283-25; A6223; C1788; G0463-25; J1644

== ENCOUNTER → 2018-03-18 | Day surgery (SDC) | payer BC ==
[2018-03-18 10:54] VITALS: BP 130/80; PULSE 80; TEMP 98.7
--- NOTE | 2018-03-18 10:55 | PN ---
Past Medical History Chief Complaint: R 1st Toe Osteo History Provided By: Patient Limitations to Obtaining History: Yes: No Limitations - Past Medical History PMH,PSH,Fam Hx, Meds,Allergies,Previous Tx: Reviewed in Nursing Documentation and no changes since last visit. Review of Systems Constitutional: reports: No Symptoms Eyes: reports: No Symptoms Cardiovascular: reports: No Symptoms Respiratory: reports: No Symptoms Musculoskeletal: reports: No Symptoms Integumentary: reports: No Symptoms Neurological: reports: No Symptoms Endocrine: reports: No Symptoms Hematology/Lymphatic: reports: No Symptoms Psychiatric: reports: No Symptoms Nutrition: Good appetite, Weight stable - Appearance General Appearance: Well groomed, Well nourished, No acute distress Assistive Devices: None Problem List - Problems (1) Osteomyelitis Assessment/Plan: Recently D/C from Hospital for R Plantar aspect, Ball of 1st toe Osteo Currently on Rocephin via PICC, PO Flagyl Has not returned to work yet Collagen with silvadene applied to R 1st toe wound, 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
== END ==
LOC: JRADIR 09:06
PROVIDERS: ATTEND Radiology Diagnostic Radiology
DX: E11.621 Type 2 diabetes mellitus with foot ulcer (principal); E11.42 Type 2 diabetes mellitus with diabetic polyneuropathy; E78.00 Pure hypercholesterolemia, unspecified; M86.171 Other acute osteomyelitis, right ankle and foot
CPT/HCPCS: 11042; 11045; G0463

== ENCOUNTER → 2018-05-06 | Day surgery (SDC) | payer BC | END | disposition home or self-care (01) | LOC: JRADIR 08:42 | PROVIDERS: ATTEND Internal Medicine | PROC: 02PY03Z Removal of Infusion Device from Great Vessel, Open Approach (ICD-10-PCS; principal; 2018-05-06) | DX: Z45.2 Encounter for adjustment and management of vascular access device (principal) | CPT/HCPCS: 36589 ==

== ENCOUNTER 2018-05-29 09:45 | Emergency (ER) | payer BC ==
[2018-05-29 10:00] VITALS: BP 166/86; PULSE 78; TEMP 98.5; BMI 48.7
--- NOTE | 2018-05-29 10:35 | PDOC ---
History of Present Illness - General Chief Complaint: Rectal Bleed Stated Complaint: RETAL PAIN Time Seen by Provider: 05/29/18 10:10 - History of Present Illness Initial Comments: 05/29/18 10:32 The patient is a 52 year old male, with a significant PMH of DM, hypertension, osteomyelitis, and HLD, who presents to the emergency department for evaluation of blood streaked stools and rectal burning. The patient states he started having burning during bowel movements about a week ago. Pt notes that over the past few days he started noticing red streaks in his stool and upon wiping. Denies any large blood clots passed. Denies dark or tarry stool. He notes that he often strains during his bowel movements. The patient denies chest pain, shortness of breath, headache and dizziness. Denies fever, chills, nausea, vomit, diarrhea and constipation. Denies dysuria, frequency, urgency and hematuria. Allergies: fish derived, iodine, shellfish derived Social history: None reported Past History - Past Medical History Allergies/Adverse Reactions: Allergies Allergy/AdvReac Type Severity Reaction Status Date / Time fish derived Allergy Verified 05/29/18 09:53 iodine Allergy Verified 05/29/18 09:53 shellfish derived Allergy Difficulty Verified 05/29/18 09:53 Breathing Home Medications: Ambulatory Orders Atorvastatin Ca [Lipitor] 10 mg PO HS #0 tablet 02/15/13 Enalapril Maleate [Vasotec -] 20 mg PO DAILY #0 tablet 02/15/13 Oxybutynin Chloride [Ditropan -] 5 mg PO DAILY 03/27/16 Amlodipine Besylate [Norvasc -] 10 mg PO DAILY 03/28/16 Furosemide [Lasix -] 40 mg PO DAILY 03/28/16 Metoprolol Succinate [Toprol XL -] 25 mg PO BID 03/28/16 Methocarbamol [Robaxin -] 750 mg PO BID PRN #20 tablet 05/27/16 Insulin (Levemir) [Levemir Vial] 24 units SQ HS #1 units 03/11/18 Sennosides [Senna -] 2 tab PO HS tablet 03/11/18 Diazepam [Valium] 2 mg PO DAILY #30 tablet MDD 1 03/25/18 Docusate Sodium [Colace -] 100 mg PO BID #14 capsule 05/29/18 Lidocaine 2% Jelly [Xylocaine 2% Jelly -] 1 applic TP BID #1 tube 05/29/18 Anemia: No Asthma: No Cancer: No Cardiac Disorders: No CVA: No COPD: No CHF: No DVT: No Dementia: No Diabetes: Yes (NIDDM) GI Disorders: Yes (PANCREATITIS) Disorders: No HTN: Yes Hypercholesterolemia: Yes Liver Disease: No Seizures: No Thyroid Disease: No - Surgical History Abdominal Surgery: No Appendectomy: No Cardiac Surgery: No Cholecystectomy: No Lung Surgery: No Neurologic Surgery: No Orthopedic Surgery: Yes (BILATERAL SHOULDER SURGERY) - Family Disease History Family Disease History: Diabetes: Mother, Heart Disease: Father - Immunization History Immunization Up to Date: Yes - Suicide/Smoking/Psychosocial Hx Smoking Status: Yes Smoking History: Former smoker Have you smoked in the past 12 months: No Number of Cigarettes Smoked Daily: 0 If you are a former smoker, when did you quit?: 2004 Information on smoking cessation initiated: No Hx Alcohol Use: Yes Drug/Substance Use Hx: No Substance Use Type: Alcohol Hx Substance Use Treatment: No Review of Systems - Review of Systems Comments:: 05/29/18 10:34 GENERAL/CONSTITUTIONAL: No fever or chills. No weakness. HEAD, EYES, EARS, NOSE AND THROAT: No change in vision. No ear pain or discharge. No sore throat. CARDIOVASCULAR: No chest pain, no shortness of breath, no loss of consciousness RESPIRATORY: No cough, wheezing, or hemoptysis. GASTROINTESTINAL: (+) Rectal burning, blood streaked stool, No nausea, vomiting , diarrhea or constipation. GENITOURINARY: No dysuria, frequency, or change in urination. MUSCULOSKELETAL: No joint or muscle swelling or pain. No neck or back pain. SKIN: No rash NEUROLOGIC: No vertigo, no change in strength/sensation. ENDOCRINE: No increased thirst. No abnormal weight change. HEMATOLOGIC/LYMPHATIC: No anemia, easy bleeding, or history of blood clots. ALLERGIC/IMMUNOLOGIC: No hives or skin allergy. *Physical Exam - Vital Signs Last Vital Signs Temp Pulse Resp BP Pulse Ox 98.5 F 78 18 166/86 96 05/29/18 09:53 05/29/18 09:53 05/29/18 09:53 05/29/18 09:53 05/29/18 09:53 - Physical Exam Comments: 05/29/18 10:31 "GENERAL: Awake, alert, and fully oriented, in no acute distress. HEAD: No signs of trauma EYES: PERRLA, EOMI, sclera anicteric, conjunctiva clear ENT: Auricles normal inspection, hearing grossly normal, nares patent, oropharynx clear without exudates. Moist mucosa NECK: Nontender, no stepoffs, Normal ROM, supple, no lymphadenopathy, JVD, or masses LUNGS: Breath sounds equal, clear to auscultation bilaterally. No wheezes, and no crackles HEART: Regular rate and rhythm, normal S1 and S2, no murmurs, rubs or gallops ABDOMEN: Soft, nontender, normoactive bowel sounds. No guarding, no rebound. No masses EXTREMITIES: Normal range of motion, no edema. No clubbing or cyanosis. No cords, erythema, or tenderness NEUROLOGICAL: Cranial nerves II through XII intact. 5/5 strength and sensation in all extremities, Normal speech, normal gait, normal cerebellar function SKIN: Warm, Dry, normal turgor, no rashes or lesions noted. RECTAL: Brown stool, no external hemorrhoids, no blood, no melena Moderate Sedation - Procedure Monitoring Vital Signs: Procedure Monitoring Vital Signs Temperature 98.5 F 05/29/18 09:53 Pulse Rate 78 05/29/18 09:53 Respiratory Rate 18 05/29/18 09:53 Blood Pressure 166/86 05/29/18 09:53 O2 Sat by Pulse Oximetry (%) 96 05/29/18 09:53 ED Treatment Course - LABORATORY CBC & Chemistry Diagram: 05/29/18 10:26 Medical Decision Making - Medical Decision Making 05/29/18 10:30 52 M presenting with several days of blood-streaked stool and rectal burning. Suspect internal hemorrhoid vs anal fissure. No external hemorrhoids on exam. Rectal exam with brown stool, no evidence of hematochezia or melena. - CBC to r/o significant blood loss - Topical lidocaine for comfort 05/29/18 11:01 CBC wnl Pt is well appearing, with normal vitals. Clinically stable for DC at this time. I discussed the physical exam findings, ancillary test results and final diagnoses with the patient. I answered all of the patient's questions. The patient was satisfied with the care received and felt comfortable with the discharge plan and treatment plan. The patient agrees to follow up with the primary care physician within 24-72 hours. *DC/Admit/Observation/Transfer Diagnosis at time of Disposition: Anal fissure - Discharge Dispostion Disposition: HOME - Prescriptions Prescriptions: Docusate Sodium [Colace -] 100 mg PO BID #14 capsule Lidocaine 2% Jelly [Xylocaine 2% Jelly -] 1 applic TP BID #1 tube - Referrals Referrals: Arvind Mansfield MD [Staff Physician] - - Patient Instructions Printed Discharge Instructions: DI for Hemorrhoids, DI for Anal Fissure Additional Instructions: Take the stool softeners to prevent straining during bowel movements. Apply the lidocaine jelly to the painful area twice daily. If you experience worsening rectal pain, bleeding, dark stools, abdominal pain, vomiting, or any other concerning symptoms, return to the ER immediately. Otherwise, follow up with a GI doctor for further evaluation of your rectal pain. Call the number provided to make an appointment. - Post Discharge Activity - Attestations Physician Attestion: 05/29/18 11:01 I, Dr. Juvencio Urias MD, attest that this document has been prepared under my direction and personally reviewed by me in its entirety. I further attest, that it accurately reflects all work, treatment, procedures and medical decision -making performed by me.
[2018-05-29 10:40] LABS: BASO % 1.5 % (0-2.0); EOS % 2.2 % (0-4.5); HEMATOCRIT 38.9 % (35.4-49); LYMPH % 19.6 % (8-40); MCH 29.9 pg (25.7-33.7); MCHC 33.3 g/dl (32.0-35.9); MEAN CELL VOLUME 89.8 fl (80-96); MEAN PLT VOLUME 8.5 fl (7.5-11.1); MONO % 9.4 % (3.8-10.2); NEUT % 67.3 % (42.8-82.8); PLATELET COUNT 172 K/MM3 (134-434); RBC 4.33 M/mm3 (4.00-5.60); RDW 15.1 % (11.9-15.9); WHITE BLOOD COUNT 3.2 K/mm3 (4.0-10.0)
== END 2018-05-29 11:09 | disposition home or self-care (01) ==
LOC: JER 09:45
DX: K60.2 Anal fissure, unspecified (principal); Z87.891 Personal history of nicotine dependence; I10 Essential (primary) hypertension; E11.9 Type 2 diabetes mellitus without complications; E78.00 Pure hypercholesterolemia, unspecified
CPT/HCPCS: 36415; 85025; 99281-25; A6209; G0463-25

== ENCOUNTER 2018-10-24 14:41 | Inpatient (IN) | payer BC ==
[2018-10-24 14:50] VITALS: BMI 47.3
--- NOTE | 2018-10-24 14:58 | PDOC ---
History of Present Illness - General Chief Complaint: Wound Stated Complaint: RT FOOT WOUND Time Seen by Provider: 10/24/18 14:58 Past History - Past Medical History Allergies/Adverse Reactions: Allergies Allergy/AdvReac Type Severity Reaction Status Date / Time fish derived Allergy Verified 10/24/18 14:49 iodine Allergy Verified 10/24/18 14:49 shellfish derived Allergy Difficulty Verified 10/24/18 14:49 Breathing Home Medications: Ambulatory Orders Atorvastatin Ca [Lipitor] 10 mg PO HS #0 tablet 02/15/13 Enalapril Maleate [Vasotec -] 20 mg PO DAILY #0 tablet 02/15/13 Oxybutynin Chloride [Ditropan -] 5 mg PO DAILY 03/27/16 Amlodipine Besylate [Norvasc -] 10 mg PO DAILY 03/28/16 Furosemide [Lasix -] 40 mg PO DAILY 03/28/16 Metoprolol Succinate [Toprol XL -] 25 mg PO BID 03/28/16 Methocarbamol [Robaxin -] 750 mg PO BID PRN #20 tablet 05/27/16 Insulin (Levemir) [Levemir Vial] 24 units SQ HS #1 units 03/11/18 Sennosides [Senna -] 2 tab PO HS tablet 03/11/18 Docusate Sodium [Colace -] 100 mg PO BID #14 capsule 05/29/18 Lidocaine 2% Jelly [Xylocaine 2% Jelly -] 1 applic TP BID #1 tube 05/29/18 Anemia: No Asthma: No Cancer: No Cardiac Disorders: No CVA: No COPD: No CHF: No DVT: No Dementia: No Diabetes: Yes (NIDDM) GI Disorders: Yes (PANCREATITIS) Disorders: No HTN: Yes Hypercholesterolemia: Yes Liver Disease: No Seizures: No Thyroid Disease: No - Surgical History Abdominal Surgery: No Appendectomy: No Cardiac Surgery: No Cholecystectomy: No Lung Surgery: No Neurologic Surgery: No Orthopedic Surgery: Yes (BILATERAL SHOULDER SURGERY) - Family Disease History Family Disease History: Diabetes: Mother, Heart Disease: Father - Immunization History Immunization Up to Date: Yes - Suicide/Smoking/Psychosocial Hx Smoking Status: Yes Smoking History: Former smoker Have you smoked in the past 12 months: No Number of Cigarettes Smoked Daily: 0 If you are a former smoker, when did you quit?: 2004 Information on smoking cessation initiated: No Hx Alcohol Use: No Drug/Substance Use Hx: No Substance Use Type: Alcohol Hx Substance Use Treatment: No *Physical Exam - Vital Signs Last Vital Signs Temp Pulse Resp BP Pulse Ox 98.4 F 66 17 157/83 100 10/24/18 14:46 10/24/18 14:46 10/24/18 14:46 10/24/18 14:46 10/24/18 14:46 *DC/Admit/Observation/Transfer - Referrals Referrals: Nikita Henao MD [Primary Care Provider] - - Patient Instructions - Post Discharge Activity
--- NOTE | 2018-10-24 16:35 | PDOC ---
History of Present Illness - General Chief Complaint: Wound Stated Complaint: RT FOOT WOUND Time Seen by Provider: 10/24/18 14:58 - History of Present Illness Initial Comments: 10/24/18 16:32 CHIEF COMPLAINT: foot infection HISTORY OF PRESENT ILLNESS: 52 yo M with hx of DMII, BPH, HTN, HLD with chronic right foot diabetic ulcer was sent by wound care via Dr. Gunderson for worsening foot infectio requiring IV abx and ID consult wiht Dr. Holden. Pt is followed by Dr. Nikita Henao. Patient denies any fever, chills, nausea , vomiting and states that he was just going to a routine check up at the wound clinic and was told to come to the ER for admission. No recent travel or sick contacts. PAST MEDICAL HISTORY: DMII, BPH, HTN, HLD FAMILY HISTORY: Denies SOCIAL HISTORY: Denies tobacco, alcohol, illicit drug use. SURGICAL HISTORY: Denies ALLERGIES: fish, iodine REVIEW OF SYSTEMS General/Constitutional: Denies fever or chills. Denies weakness, weight change. HEENT: Denies change in vision. Denies ear pain or discharge. Denies sore throat. Cardiovascular: Denies chest pain or shortness of breath. Respiratory: Denies cough, wheezing, or hemoptysis. Gastrointestinal: Denies nausea, vomiting, diarrhea or constipation. Denies rectal bleeding. Genitourinary: Denies dysuria, frequency, or change in urination. Musculoskeletal: "They told me my foot is infected because it smells bad." Denies joint or muscle swelling or pain. Denies neck or back pain. Skin and breasts: Denies rash or easy bruising. Neurologic: Denies headache, vertigo, loss of consciousness, or loss of sensation. PHYSICAL EXAM General Appearance: Well-appearing, appropriately dressed. No apparent distress , no intoxication. HEENT: EOMI, PERRLA, normal ENT inspection, normal voice, TMs normal, pharynx normal. No conjunctival pallor. No photophobia, scleral icterus. Neck: Supple. Trachea midline. No tenderness, rigidity, carotid bruit, stridor , lymphadenopathy, or thyromegaly. Respiratory/Chest: Lungs CTAB. No shortness of breath, chest tenderness, respiratory distress, accessory muscle use. No crackles, rales, rhonchi, stridor , wheezing, dullness Cardiovascular: RRR. S1, S2. No JVD, murmur, bradycardia, tachycardia. Vascular Pulses: Dorsalis-Pedis (R): 2+, Dorsalis-Pedis (L): 2+ Gastrointestinal/Abdominal: Normal bowel sounds. Abdomen soft, non-distended. No tenderness or rebound tenderness. No organomegaly, pulsatile mass, guarding , hernia, hepatomegaly, splenomegaly. Lymphatic: No adenopathy, tenderness. Musculoskeletal/Extremities: Draining malodorous chronic diabetic foot ulcer to plantar aspect of R foot. Normal inspection. FROM of all extremities, normal capillary refill. Pelvis Stable. No CVA tenderness. No tenderness to extremities, pedal edema, swelling, erythema or deformity. Integumentary: Appropriate color, dry, warm. No cyanosis, erythema, jaundice or rash Neurologic: route deliverer II-XII intact. Fully oriented, alert. Appropriate mood/affect. Motor strength 5/5. No appreciable EOM palsy, facial droop or sensory deficit. Past History - Past Medical History Allergies/Adverse Reactions: Allergies Allergy/AdvReac Type Severity Reaction Status Date / Time fish derived Allergy Verified 10/24/18 14:49 iodine Allergy Verified 10/24/18 14:49 shellfish derived Allergy Difficulty Verified 10/24/18 14:49 Breathing Home Medications: Ambulatory Orders Atorvastatin Ca [Lipitor] 10 mg PO HS #0 tablet 02/15/13 Enalapril Maleate [Vasotec -] 20 mg PO DAILY #0 tablet 02/15/13 Oxybutynin Chloride [Ditropan -] 5 mg PO DAILY 03/27/16 Amlodipine Besylate [Norvasc -] 10 mg PO DAILY 03/28/16 Furosemide [Lasix -] 40 mg PO DAILY 03/28/16 Metoprolol Succinate [Toprol XL -] 25 mg PO BID 03/28/16 Methocarbamol [Robaxin -] 750 mg PO BID PRN #20 tablet 05/27/16 Insulin (Levemir) [Levemir Vial] 24 units SQ HS #1 units 03/11/18 Sennosides [Senna -] 2 tab PO HS tablet 03/11/18 Docusate Sodium [Colace -] 100 mg PO BID #14 capsule 05/29/18 Lidocaine 2% Jelly [Xylocaine 2% Jelly -] 1 applic TP BID #1 tube 05/29/18 Anemia: No Asthma: No Cancer: No Cardiac Disorders: No CVA: No COPD: No CHF: No DVT: No Dementia: No Diabetes: Yes (NIDDM) GI Disorders: Yes (PANCREATITIS) Disorders: No HTN: Yes Hypercholesterolemia: Yes Liver Disease: No Seizures: No Thyroid Disease: No - Surgical History Abdominal Surgery: No Appendectomy: No Cardiac Surgery: No Cholecystectomy: No Lung Surgery: No Neurologic Surgery: No Orthopedic Surgery: Yes (BILATERAL SHOULDER SURGERY) - Family Disease History Family Disease History: Diabetes: Mother, Heart Disease: Father - Immunization History Immunization Up to Date: Yes - Suicide/Smoking/Psychosocial Hx Smoking Status: Yes Smoking History: Former smoker Have you smoked in the past 12 months: No Number of Cigarettes Smoked Daily: 0 If you are a former smoker, when did you quit?: 2004 Information on smoking cessation initiated: No Hx Alcohol Use: No Drug/Substance Use Hx: No Substance Use Type: Alcohol Hx Substance Use Treatment: No *Physical Exam - Vital Signs Last Vital Signs Temp Pulse Resp BP Pulse Ox 98.4 F 66 17 157/83 100 10/24/18 14:46 10/24/18 14:46 10/24/18 14:46 10/24/18 14:46 10/24/18 14:46 Medical Decision Making - Medical Decision Making 10/24/18 16:55 52 yo M with hx of DMII, BPH, HTN, HLD with chronic right foot diabetic ulcer was sent by wound care via Dr. Gunderson for worsening foot infectio requiring IV abx and ID consult wiht Dr. Holden. labs, x-ray ID consult discussed case with admitting MD Alexus Martin who accepts patient to inpatient admission *DC/Admit/Observation/Transfer Diagnosis at time of Disposition: Non-pressure chronic ulcer of other part of unspecified foot limited to breakdown of skin Diabetic foot ulcer Qualifiers: Diabetic foot ulcer location: midfoot Diabetes mellitus type: type 2 Laterality : right Non-pressure ulcer stage: unspecified non-pressure ulcer stage Qualified Code(s): E11.621 - Type 2 diabetes mellitus with foot ulcer; L97.419 - Non-pressure chronic ulcer of right heel and midfoot with unspecified severity - Discharge Dispostion Decision to Admit order: Yes - Referrals Referrals: Nikita Henao MD [Primary Care Provider] - - Patient Instructions - Post Discharge Activity
[2018-10-24 17:22] LABS: BASO % 1.2 % (0-2.0); EOS % 2.4 % (0-4.5); HEMATOCRIT 36.1 % (35.4-49); HEMOGLOBIN 11.9 GM/dL (11.7-16.9); LYMPH % 21.1 % (8-40); MCH 29.7 pg (25.7-33.7); MCHC 33.1 g/dl (32.0-35.9); MEAN CELL VOLUME 89.7 fl (80-96); MONO % 10.2 % (3.8-10.2); NEUT % 65.1 % (42.8-82.8); PLATELET COUNT 245 K/MM3 (134-434); RBC 4.02 M/mm3 (4.00-5.60); RDW 15.7 % (11.9-15.9); WHITE BLOOD COUNT 4.5 K/mm3 (4.0-10.0)
[2018-10-24 17:35] LABS: ALBUMIN 3.6 g/dl (3.4-5.0); BILIRUBIN,TOTAL 0.4 mg/dL (0.2-1); BLOOD UREA NITROGEN 19.5 mg/dL (7-18); CREATININE 1.3 mg/dL (0.55-1.3); POTASSIUM 4.3 mmol/L (3.5-5.1); TOT PROT 8.1 g/dl (6.4-8.2)
[2018-10-24 17:37] LABS: INR 1.03 (0.83-1.09); PROTHROMBIN TIME (PATIENT) 12.2 SEC (9.7-13.0)
[2018-10-24] MEDS ORDERED: INSULIN (LEVEMIR) 100 UNITS/ML UNITS SQ ONE (23:45)
[2018-10-24] MEDS ORDERED: VANCOMYCIN 1 GM in D5W (PRE-DOCKED) 1,000 MG/250 ML IVPB ONE (23:45)
[2018-10-24] MEDS: ATORVASTATIN CA 20 MG TABLET (FP) PO SCH (23:51)
[2018-10-25] MEDS ORDERED: ACETAMINOPHEN 325 MG TABLET (FP) PO PRN (10:23)
--- NOTE | 2018-10-25 10:28 | HP ---
Admitting History and Physical - Primary Care Physician PCP: Nikita Henao - Admission History of Present Illness: Pt well known to me form office Send from Wound care for diabetic foot ulcer for Abx admitted to floor got abx chart reviewed. History Source: Patient - Past Medical History Cardiovascular: Yes: HTN, Hyperlipdemia. No: AFIB, Aneurysm, Aortic Insufficiency, Aortic Stenosis, CAD, CHF, Deep Vein Thrombosis, [place], Mitral Insufficiency, Mitral Stenosis, Murmur, Pulmonary Hypertension, Other Renal/: Yes: Renal Inusuff Endocrine: Yes: Diabetes Mellitus Additional Past Medical History: morbidly obese - Smoking History Smoking history: Former smoker Have you smoked in the past 12 months: No Aproximately how many cigarettes per day: 0 If you are a former smoker, when did you quit?: 2004 - Alcohol/Substance Use Hx Alcohol Use: No History of Substance Use: reports: None - Social History ADL: Independent Occupation: [employer] History of Recent Travel: No Home Medications - Allergies Allergies/Adverse Reactions: Allergies Allergy/AdvReac Type Severity Reaction Status Date / Time fish derived Allergy Verified 10/24/18 14:49 iodine Allergy Verified 10/24/18 14:49 shellfish derived Allergy Difficulty Verified 10/24/18 14:49 Breathing - Home Medications Home Medications: Ambulatory Orders Atorvastatin Ca [Lipitor] 10 mg PO HS #0 tablet 02/15/13 Enalapril Maleate [Vasotec -] 20 mg PO DAILY #0 tablet 02/15/13 Oxybutynin Chloride [Ditropan -] 5 mg PO DAILY 03/27/16 Amlodipine Besylate [Norvasc -] 10 mg PO DAILY 03/28/16 Furosemide [Lasix -] 40 mg PO DAILY 03/28/16 Metoprolol Succinate [Toprol XL -] 25 mg PO BID 03/28/16 Methocarbamol [Robaxin -] 750 mg PO BID PRN #20 tablet 05/27/16 Insulin (Levemir) [Levemir Vial] 24 units SQ HS #1 units 03/11/18 Sennosides [Senna -] 2 tab PO HS tablet 03/11/18 Docusate Sodium [Colace -] 100 mg PO BID #14 capsule 05/29/18 Family Disease History - Family Disease History Family Disease History: Diabetes: Mother ( at age 69), Brother, Heart Disease: Father (HTN at age 76), Mother, Respiratory: Sister (asthma) Review of Systems - Review of Systems Constitutional: reports: No Symptoms Eyes: reports: No Symptoms HENT: reports: No Symptoms Neck: reports: No Symptoms Cardiovascular: reports: No Symptoms Respiratory: reports: No Symptoms Gastrointestinal: reports: No Symptoms Genitourinary: reports: No Symptoms Neurological: reports: No Symptoms Psychiatric: reports: No Symptoms Physical Examination Vital Signs: Vital Signs Temperature 97.4 F L 10/25/18 05:48 Pulse Rate 69 10/25/18 05:48 Respiratory Rate 20 10/25/18 05:48 Blood Pressure 146/88 10/25/18 05:48 O2 Sat by Pulse Oximetry (%) 97 10/24/18 23:00 Constitutional: Yes: No Distress Eyes: Yes: Conjunctiva Clear Neck: Yes: Supple Cardiovascular: Yes: Regular Rate and Rhythm Respiratory: Yes: Diminished Gastrointestinal: Yes: Soft, Abdomen, Obese Wound/Incision: Yes: Other (infected diabetic foot ulcer) Neurological: Yes: Alert Psychiatric: Yes: Alert Labs: CBC, BMP 10/24/18 16:55 10/24/18 16:55 Imaging - Results Chest X-ray: Report Reviewed EKG: Report Reviewed Problem List - Problems (1) Abnormal EKG Code(s): R94.31 - ABNORMAL ELECTROCARDIOGRAM [ECG] [EKG] (2) Diabetic foot ulcer Code(s): E11.621 - TYPE 2 DIABETES MELLITUS WITH FOOT ULCER; L97.509 - NON- PRESSURE CHRONIC ULCER OTH PRT UNSP FOOT W UNSP SEVERITY Qualifiers: Diabetic foot ulcer location: midfoot Diabetes mellitus type: type 2 Laterality: right Non-pressure ulcer stage: unspecified non-pressure ulcer stage Qualified Code(s): E11.621 - Type 2 diabetes mellitus with foot ulcer; L97.419 - Non-pressure chronic ulcer of right heel and midfoot with unspecified severity (3) Diabetes type 2, uncontrolled Code(s): E11.65 - TYPE 2 DIABETES MELLITUS WITH HYPERGLYCEMIA (4) HTN (hypertension) Code(s): I10 - ESSENTIAL (PRIMARY) HYPERTENSION (5) Obesity Code(s): E66.9 - OBESITY, UNSPECIFIED (6) Renal insufficiency Code(s): N28.9 - DISORDER OF KIDNEY AND URETER, UNSPECIFIED Assessment/Plan Discussed with pt compliance major issue abx Diabetic control i/d eval check esr/ HbA1c/ Lipid profile Abnormal ekg-- Pt asymptomatic Need cardiology work up as out pt will follow
--- NOTE | 2018-10-25 11:28 | PN ---
Progress Note (short form) - Note Progress Note: ID CONSULT DICTATED INFECTED DIABETIC FOOT ULCER ? OSTEOMYELITIS DIABETES MELLITUS MORBID OBESITY OBTAIN C/S, ESR, CRP EMPIRIC ZOSYN/ VANCOMYCIN
[2018-10-25] MEDS ORDERED: DEXTROSE 5%-WATER - 50 ML IVPB ONE ×2 (12:39→19:40)
[2018-10-25] MEDS ORDERED: PIPERACILLIN/TAZOBACTAM 3.375 GM VIAL IVPB ONE ×2 (12:39→19:40)
[2018-10-25] MEDS: PIPERACILLIN/TAZOB 3.375 GM 3.375 GM in DEXTROSE 5%-WATER - 50 ML IVPB SCH ×2 (12:47→19:52)
--- NOTE | 2018-10-25 12:54 | EKG ---
Test Reason : Blood Pressure : / mmHG Vent. Rate : 071 BPM Atrial Rate : 071 BPM P-R Int : 160 ms QRS Dur : 086 ms QT Int : 410 ms P-R-T Axes : 053 012 017 degrees QTc Int : 445 ms NORMAL SINUS RHYTHM POSSIBLE ANTERIOR INFARCT , AGE UNDETERMINED ABNORMAL ECG Confirmed by GRACIELA REHMAN MD ([id number]) on 10/25/2018 12:53:26 PM Referred By: Confirmed By:GRACIELA REHMAN MD
--- NOTE | 2018-10-25 13:08 | CONS ---
INFECTIOUS DISEASE CONSULTATION DATE OF CONSULTATION: DATE OF DICTATION: 10/25/2018 HISTORY OF PRESENT ILLNESS: The patient is a 53-year-old, male, morbidly obese, diabetic, with a history of infected diabetic foot ulcer, now readmitted with an infected right plantar ulcer. The patient was seen in wound care center on a routine visit. He was found to have malodorous drainage from a right plantar wound. He was referred to the hospital for further evaluation and intravenous antibiotic therapy. The patient states that he has been followed on a regular basis in the wound care center. He was diagnosed with an infected right plantar ulcer and osteomyelitis in February 2018. He received a 6-week course of IV Zosyn as an outpatient, completing the therapy in April 2018. He has no complaints of foot pain. He was unaware of any worsening of the ulceration. He was told that there was malodorous drainage; however, he did not notice this. He denies any associated fever or chills. No recent antibiotic therapy. PAST MEDICAL HISTORY: Positive for morbid obesity, diabetes mellitus, history of infected diabetic foot ulcer with osteomyelitis, hypertension, hyperlipidemia, BPH. PAST SURGICAL HISTORY: Status post shoulder surgery. ALLERGIES: IODINE. MEDICATIONS: Include Tylenol, Lipitor, Colace, Vasotec, Lovenox, Lasix, Levemir, Toprol, VESIcare. SOCIAL HISTORY: He lives at home in the community. He is a former smoker. 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 SYSTEMS REVIEW: Neurologic: No loss of consciousness, seizure activity, focal weakness. Cardiac: Negative chest pain or palpitations. Respiratory: Negative cough or sputum production. Gastrointestinal: Negative vomiting or diarrhea. Genitourinary: Negative for urinary tract infection. LABORATORY DATA: White count 4.5, hematocrit 36.1, platelet count 245. BUN 19, creatinine 1.3. Liver enzymes normal. Blood cultures are pending. IMAGING: X-ray done; official reading pending. PHYSICAL EXAMINATION: General: On physical examination, the patient is awake and alert. He is lying in bed, in no acute distress, not acutely toxic appearing. Morbidly obese. Vital Signs: Temperature 97.4, blood pressure 146/88, pulse 69 regular, respirations 20 per minute. Eyes: Sclerae are anicteric. Heart: Heart sounds S1, S2. Lungs: Clear bilaterally. No rhonchi, rales or wheezing. Abdomen: Obese. Soft. Nontender. Lower Extremities Examination: Bilateral lower extremity edema 2+ with chronic venous stasis dermatitis. Examination of the right foot: There is a 2 x 4 cm deep ulceration over the plantar aspect of the 1st metatarsal head. There is surrounding callus, granulation tissue in the wound. There is some serous drainage which is malodorous. No surrounding erythema and no crepitus or fluctuance. IMPRESSION: 1. Infected diabetic foot ulcer. 2. Rule out underlying chronic osteomyelitis. 3. Diabetes mellitus. 4. Morbid obesity. Will obtain wound culture, sedimentation rate, C-reactive protein. Blood cultures have been obtained. Empiric antibiotic therapy based on previous wound cultures which have included Pseudomonas morganella and Staph aureus with vancomycin and Zosyn. Local wound care. Will follow. Thank you for the kind referral. GRACIELA CAVAZOS M.D. [id number]
[2018-10-25] MEDS: VANCOMYCIN 1 GRAM (PRE-DOCKED) 1,000 MG/250 ML BAG IVPB SCH (13:49)
--- NOTE | 2018-10-25 17:11 | CONSULT ---
Consult Consult Specialty:: Podiatry - History of Present Illness Chief Complaint: Wound right foot. - Past Medical History Cardio/Vascular: Yes: HTN, Hyperlipdemia. No: AFIB, Aneurysm, Aortic Insufficiency, Aortic Stenosis, CAD, CHF, Deep Vein Thrombosis, ND, Mitral Insufficiency, Mitral Stenosis, Murmur, Pulmonary Hypertension, Other Renal/: Yes: Renal Inusuff Endocrine: Yes: Diabetes Mellitus - Alcohol/Substance Use Hx Alcohol Use: No History of Substance Use: reports: None - Smoking History Smoking history: Former smoker Have you smoked in the past 12 months: No Aproximately how many cigarettes per day: 0 If you are a former smoker, when did you quit?: 2004 - Social History Usual Living Arrangement: Alone ADL: Independent Occupation: [employer] History of Recent Travel: No Home Medications - Allergies Allergies/Adverse Reactions: Allergies Allergy/AdvReac Type Severity Reaction Status Date / Time fish derived Allergy Verified 10/24/18 14:49 iodine Allergy Verified 10/24/18 14:49 shellfish derived Allergy Difficulty Verified 10/24/18 14:49 Breathing - Home Medications Home Medications: Ambulatory Orders Atorvastatin Ca [Lipitor] 10 mg PO HS #0 tablet 02/15/13 Enalapril Maleate [Vasotec -] 20 mg PO DAILY #0 tablet 02/15/13 Oxybutynin Chloride [Ditropan -] 5 mg PO DAILY 03/27/16 Amlodipine Besylate [Norvasc -] 10 mg PO DAILY 03/28/16 Furosemide [Lasix -] 40 mg PO DAILY 03/28/16 Metoprolol Succinate [Toprol XL -] 25 mg PO BID 03/28/16 Methocarbamol [Robaxin -] 750 mg PO BID PRN #20 tablet 05/27/16 Insulin (Levemir) [Levemir Vial] 24 units SQ HS #1 units 03/11/18 Sennosides [Senna -] 2 tab PO HS tablet 03/11/18 Docusate Sodium [Colace -] 100 mg PO BID #14 capsule 05/29/18 Family Disease History - Family Disease History Family Disease History: Diabetes: Mother ( at age 69), Brother, Heart Disease: Father (HTN at age 76), Mother, Respiratory: Sister (asthma) Physical Exam Vital Signs: Vital Signs Temperature 98.1 F 10/25/18 14:02 Pulse Rate 66 10/25/18 14:02 Respiratory Rate 20 10/25/18 14:02 Blood Pressure 132/81 10/25/18 14:02 O2 Sat by Pulse Oximetry (%) 97 10/25/18 09:00 Extremities: Yes: Other (+grade 3 wound foul smelling sub 1st met right,) Labs: CBC, BMP 10/24/18 16:55 10/24/18 16:55 Imaging - Results X-ray: Report Reviewed, Image Reviewed Assessment/Plan om? cellulitis Triphasic bone scan. Will not fit in MRI. Santyl to wound. Vascular consult. IVABX as per ID. Will follow.
[2018-10-25] MEDS: INSULIN SLIDING SCALE (NOVOLOG) 1 VIAL SQ SCH (17:54)
[2018-10-25] MEDS: COLLAGENASE CLOSTRIDIUM HIST. 30 GRAMS TUBE TP SCH (17:55)
[2018-10-25] MEDS: ENOXAPARIN NA (PORCINE) 40 MG/0.4 ML DISP.SYRIN SQ SCH (17:55)
[2018-10-25] MEDS: SENNOSIDES 8.6MG TABLET (FP) PO SCH (21:40)
[2018-10-25] MEDS: metoPROLOL SUCCINATE 25 MG TAB.SR.24H (FP) PO SCH (21:40)
[2018-10-25] MEDS: DOCUSATE SODIUM 100 MG CAPSULE (FP) PO SCH (21:40)
[2018-10-25] MEDS: ATORVASTATIN CA 20 MG TABLET (FP) PO SCH (21:40)
[2018-10-25] MEDS: INSULIN (LEVEMIR) 100 UNITS/ML UNITS SQ SCH (21:43)
[2018-10-26] MEDS ORDERED: PIPERACILLIN/TAZOBACTAM 3.375 GM VIAL IVPB ONE ×3 (00:26→17:55)
[2018-10-26] MEDS ORDERED: DEXTROSE 5%-WATER - 50 ML IVPB ONE ×3 (00:26→17:55)
[2018-10-26] MEDS: PIPERACILLIN/TAZOB 3.375 GM 3.375 GM in DEXTROSE 5%-WATER - 50 ML IVPB SCH ×3 (01:23→18:15)
[2018-10-26] MEDS: INSULIN SLIDING SCALE (NOVOLOG) 1 VIAL SQ SCH ×2 (06:04→17:50)
[2018-10-26 08:45] LABS: CHOLESTEROL 132 mg/dL (50-200); HDL CHOLESTEROL 55 mg/dL (40-60); TRIGLYCERIDES 120 mg/dL (0-150)
[2018-10-26 08:50] LABS: ALBUMIN 3.3 g/dl (3.4-5.0); BILIRUBIN,TOTAL 0.6 mg/dL (0.2-1); CALCIUM 8.9 mg/dL (8.5-10.1); CREATININE 1.3 mg/dL (0.55-1.3); POTASSIUM 4.5 mmol/L (3.5-5.1); TOT PROT 8.2 g/dl (6.4-8.2)
[2018-10-26] MEDS ORDERED: OXYBUTYNIN CHLORIDE 5 MG TABLET PO SCH (10:00)
[2018-10-26] MEDS: metoPROLOL SUCCINATE 25 MG TAB.SR.24H (FP) PO SCH ×2 (10:21→21:39)
[2018-10-26] MEDS: DOCUSATE SODIUM 100 MG CAPSULE (FP) PO SCH ×2 (10:21→21:39)
[2018-10-26] MEDS: ENALAPRIL MALEATE 10 MG TABLET (FP) PO SCH (10:21)
[2018-10-26] MEDS: FUROSEMIDE 40 MG TABLET (FP) PO SCH (10:21)
[2018-10-26] MEDS: ENOXAPARIN NA (PORCINE) 40 MG/0.4 ML DISP.SYRIN SQ SCH (10:21)
[2018-10-26] MEDS: COLLAGENASE CLOSTRIDIUM HIST. 30 GRAMS TUBE TP SCH (10:22)
--- NOTE | 2018-10-26 11:20 | PN ---
Progress Note (short form) - Note Progress Note: events noted no complaints Vital Signs - 24 hr 10/25/18 10/25/18 10/26/18 14:02 21:00 06:00 Temperature 98.1 F 97.5 F L Pulse Rate 66 65 Respiratory 20 20 Rate Blood Pressure 132/81 148/86 O2 Sat by Pulse 97 Oximetry (%) Current Medications Generic Name Dose Route Start Last Admin Trade Name Freq PRN Reason Stop Dose Admin Acetaminophen 650 mg 10/25/18 10:23 Tylenol - PO Q4H PRN PAIN LEVEL 1-5 Atorvastatin Calcium 20 mg 10/24/18 23:45 10/25/18 21:40 Lipitor - PO 20 mg HS [facility] Administration Collagenase 1 applic 10/25/18 17:15 10/26/18 10:22 Santyl - TP 1 applic DAILY [facility] Administration Protocol Docusate Sodium 100 mg 10/25/18 22:00 10/26/18 10:21 Colace - PO 100 mg BID [facility] Administration Enalapril Maleate 20 mg 10/26/18 10:00 10/26/18 10:21 Vasotec - PO 20 mg DAILY [facility] Administration Enoxaparin Sodium 40 mg 10/25/18 18:00 10/26/18 10:21 Lovenox - SQ 40 mg DAILY [facility] Administration Furosemide 40 mg 10/26/18 10:00 10/26/18 10:21 Lasix - PO 40 mg DAILY [facility] Administration Piperacillin Sod/Tazobactam 50 mls @ 100 mls/hr 10/25/18 11:30 10/26/18 10:21 Sod 3.375 gm/ Dextrose IVPB 100 mls/hr Q8H-IV [facility] Administration Protocol Vancomycin HCl 1,000 mg in 250 mls @ 166.667 mls/hr 10/25/18 12:00 10/25/18 13:49 Vancomycin (Pre-Docked) IVPB 166.667 mls/hr Q24H [facility] Administration Protocol Insulin Aspart 1 vial 10/25/18 16:30 10/26/18 06:04 Novolog Vial Sliding Scale - SQ Not Given BIDAC [facility] Protocol Insulin Detemir 24 units 10/25/18 22:00 10/25/18 21:43 Levemir Vial SQ 24 units HS [facility] Administration Metoprolol Succinate 25 mg 10/25/18 22:00 10/26/18 10:21 Toprol Xl - PO 25 mg BID [facility] Administration Senna 2 tab 10/25/18 22:00 10/25/18 21:40 Senna - PO 2 tab HS [facility] Administration Solifenacin 5 mg 10/26/18 10:00 Vesicare - PO DAILY [facility] Laboratory Results - last 24 hr 10/25/18 10/25/18 10/26/18 17:53 21:42 06:03 WBC Corrected WBC (auto) RBC Hgb Hct MCV MCH MCHC RDW Plt Count MPV Absolute Neuts (auto) Neutrophils % Lymphocytes % Monocytes % Eosinophils % Basophils % Nucleated RBC % Platelet Estimate Platelet Comment ESR Sodium Potassium Chloride Carbon Dioxide Anion Gap BUN Creatinine Est GFR (CKD-EPI)AfAm Est GFR (CKD-EPI)NonAf POC Glucometer 157 160 105 Random Glucose Hemoglobin A1c % Calcium Total Bilirubin AST ALT Alkaline Phosphatase C-Reactive Protein Total Protein Albumin Triglycerides Cholesterol Total LDL Cholesterol HDL Cholesterol TSH 10/26/18 10/26/18 10/26/18 07:34 07:34 07:34 WBC Cancelled Corrected WBC (auto) Cancelled RBC Cancelled Hgb Cancelled Hct Cancelled MCV Cancelled MCH Cancelled MCHC Cancelled RDW Cancelled Plt Count Cancelled MPV Cancelled Absolute Neuts (auto) Cancelled Neutrophils % Cancelled Lymphocytes % Cancelled Monocytes % Cancelled Eosinophils % Cancelled Basophils % Cancelled Nucleated RBC % Cancelled Platelet Estimate Cancelled Platelet Comment Cancelled ESR Cancelled Sodium 138 Potassium 4.5 Chloride 104 Carbon Dioxide 29 Anion Gap 5 L BUN 14.0 Creatinine 1.3 Est GFR (CKD-EPI)AfAm 71.69 Est GFR (CKD-EPI)NonAf 61.86 POC Glucometer Random Glucose 103 Hemoglobin A1c % Calcium 8.9 Total Bilirubin 0.6 AST 18 ALT 26 Alkaline Phosphatase 72 C-Reactive Protein Total Protein 8.2 Albumin 3.3 L Triglycerides 120 Cholesterol 132 Total LDL Cholesterol 60 HDL Cholesterol 55 TSH 1.56 D 10/26/18 10/26/18 10/26/18 07:34 07:34 11:25 WBC Corrected WBC (auto) RBC Hgb Hct MCV MCH MCHC RDW Plt Count MPV Absolute Neuts (auto) Neutrophils % Lymphocytes % Monocytes % Eosinophils % Basophils % Nucleated RBC % Platelet Estimate Platelet Comment ESR Sodium Potassium Chloride Carbon Dioxide Anion Gap BUN Creatinine Est GFR (CKD-EPI)AfAm Est GFR (CKD-EPI)NonAf POC Glucometer 140 Random Glucose Hemoglobin A1c % 6.8 H Calcium Total Bilirubin AST ALT Alkaline Phosphatase C-Reactive Protein 2.3 H Total Protein Albumin Triglycerides Cholesterol Total LDL Cholesterol HDL Cholesterol TSH S1 S2 RRR Lungs clear Abd-soft, NT rt foot dressing in place PLAN iv antibiotics bone scan on Sunday can not fit in MRI continue with meds Problem List - Problems (1) Diabetic foot ulcer Code(s): E11.621 - TYPE 2 DIABETES MELLITUS WITH FOOT ULCER; L97.509 - NON- PRESSURE CHRONIC ULCER OTH PRT UNSP FOOT W UNSP SEVERITY Qualifiers: Diabetic foot ulcer location: midfoot Diabetes mellitus type: type 2 Laterality: right Non-pressure ulcer stage: unspecified non-pressure ulcer stage Qualified Code(s): E11.621 - Type 2 diabetes mellitus with foot ulcer; L97.419 - Non-pressure chronic ulcer of right heel and midfoot with unspecified severity (2) Non-pressure chronic ulcer of other part of unspecified foot limited to breakdown of skin Code(s): L97.501 - NON-PRS CHR ULCER OTH PRT UNSP FOOT LIMITED TO BRKDWN SKIN (3) BPH (benign prostatic hyperplasia) Code(s): N40.0 - BENIGN PROSTATIC HYPERPLASIA WITHOUT LOWER URINRY TRACT SYMP (4) Diabetes type 2, uncontrolled Code(s): E11.65 - TYPE 2 DIABETES MELLITUS WITH HYPERGLYCEMIA (5) HTN (hypertension) Code(s): I10 - ESSENTIAL (PRIMARY) HYPERTENSION (6) Hyperlipidemia LDL goal <100 Code(s): E78.5 - HYPERLIPIDEMIA, UNSPECIFIED
--- NOTE | 2018-10-26 12:32 | PN ---
Progress Note, Physician Chief Complaint: fuv right foot - Current Medication List Current Medications: Active Medications Acetaminophen (Tylenol -) 650 mg PO Q4H PRN PRN Reason: PAIN LEVEL 1-5 Atorvastatin Calcium (Lipitor -) 20 mg PO HS [facility] Last Admin: 10/25/18 21:40 Dose: 20 mg Collagenase (Santyl -) 1 applic TP DAILY [facility]; Protocol Last Admin: 10/26/18 10:22 Dose: 1 applic Docusate Sodium (Colace -) 100 mg PO BID [facility] Last Admin: 10/26/18 10:21 Dose: 100 mg Enalapril Maleate (Vasotec -) 20 mg PO DAILY [facility] Last Admin: 10/26/18 10:21 Dose: 20 mg Enoxaparin Sodium (Lovenox -) 40 mg SQ DAILY [facility] Last Admin: 10/26/18 10:21 Dose: 40 mg Furosemide (Lasix -) 40 mg PO DAILY [facility] Last Admin: 10/26/18 10:21 Dose: 40 mg Piperacillin Sod/Tazobactam (Sod 3.375 gm/ Dextrose) 50 mls @ 100 mls/hr IVPB Q8H-IV [facility]; Protocol Last Admin: 10/26/18 10:21 Dose: 100 mls/hr Vancomycin HCl (Vancomycin (Pre-Docked)) 1,000 mg in 250 mls @ 166.667 mls/hr IVPB Q24H [facility]; Protocol Last Admin: 10/25/18 13:49 Dose: 166.667 mls/hr Insulin Aspart (Novolog Vial Sliding Scale -) 1 vial SQ BIDAC [facility]; Protocol Last Admin: 10/26/18 06:04 Dose: Not Given Insulin Detemir (Levemir Vial) 24 units SQ [facility] Last Admin: 10/25/18 21:43 Dose: 24 units Metoprolol Succinate (Toprol Xl -) 25 mg PO BID [facility] Last Admin: 10/26/18 10:21 Dose: 25 mg Senna (Senna -) 2 tab PO HS [facility] Last Admin: 10/25/18 21:40 Dose: 2 tab Solifenacin (Vesicare -) 5 mg PO DAILY [facility] - Objective Vital Signs: Vital Signs Temperature 97.5 F L 10/26/18 06:00 Pulse Rate 65 10/26/18 06:00 Respiratory Rate 20 10/26/18 06:00 Blood Pressure 148/86 07/20/19 06:00 O2 Sat by Pulse Oximetry (%) 97 10/25/18 21:00 Extremities: Yes: Other (+improved foul smelling wound right foot) Labs: CBC, BMP 10/26/18 07:34 10/26/18 07:34 INR, PTT INR 1.03 (0.83-1.09) 10/24/18 16:55 Assessment/Plan om? cellulitis Awaiting Triphasic bone scan. continue Santyl to wound. Vascular consult pending. IVABX as per ID. Will follow.
[2018-10-26] MEDS: VANCOMYCIN 1 GRAM (PRE-DOCKED) 1,000 MG/250 ML BAG IVPB SCH (12:33)
[2018-10-26] MEDS: SOLIFENACIN SUCCINATE 5 MG TAB PO SCH (12:50)
[2018-10-26] MEDS: ATORVASTATIN CA 20 MG TABLET (FP) PO SCH (21:39)
[2018-10-26] MEDS: SENNOSIDES 8.6MG TABLET (FP) PO SCH (21:39)
[2018-10-26] MEDS: INSULIN (LEVEMIR) 100 UNITS/ML UNITS SQ SCH (21:39)
[2018-10-27] MEDS ORDERED: PIPERACILLIN/TAZOBACTAM 3.375 GM VIAL IVPB ONE ×3 (01:37→14:18)
[2018-10-27] MEDS ORDERED: DEXTROSE 5%-WATER - 50 ML IVPB ONE ×3 (01:37→14:19)
[2018-10-27] MEDS: PIPERACILLIN/TAZOB 3.375 GM 3.375 GM in DEXTROSE 5%-WATER - 50 ML IVPB SCH ×3 (02:07→17:01)
[2018-10-27] MEDS: INSULIN SLIDING SCALE (NOVOLOG) 1 VIAL SQ SCH ×2 (06:12→17:01)
[2018-10-27 07:29] LABS: EOS % 3.6 % (0-4.5); HEMATOCRIT 35.4 % (35.4-49); HEMOGLOBIN 11.7 GM/dL (11.7-16.9); LYMPH % 26.2 % (8-40); MCH 29.5 pg (25.7-33.7); MCHC 32.9 g/dl (32.0-35.9); MEAN CELL VOLUME 89.6 fl (80-96); MEAN PLT VOLUME 8.5 fl (7.5-11.1); MONO % 9.5 % (3.8-10.2); NEUT % 59.7 % (42.8-82.8); PLATELET COUNT 226 K/MM3 (134-434); RBC 3.96 M/mm3 (4.00-5.60); RDW 15.1 % (11.9-15.9); WHITE BLOOD COUNT 3.8 K/mm3 (4.0-10.0)
[2018-10-27] MEDS: DOCUSATE SODIUM 100 MG CAPSULE (FP) PO SCH ×2 (09:51→21:35)
[2018-10-27] MEDS: ENALAPRIL MALEATE 10 MG TABLET (FP) PO SCH (09:52)
[2018-10-27] MEDS: metoPROLOL SUCCINATE 25 MG TAB.SR.24H (FP) PO SCH ×2 (09:52→21:35)
[2018-10-27] MEDS: FUROSEMIDE 40 MG TABLET (FP) PO SCH (09:52)
[2018-10-27] MEDS: ENOXAPARIN NA (PORCINE) 40 MG/0.4 ML DISP.SYRIN SQ SCH (09:52)
[2018-10-27] MEDS: COLLAGENASE CLOSTRIDIUM HIST. 30 GRAMS TUBE TP SCH (09:53)
[2018-10-27] MEDS: SOLIFENACIN SUCCINATE 5 MG TAB PO SCH (09:53)
--- NOTE | 2018-10-27 10:58 | PN ---
Progress Note (short form) - Note Progress Note: events noted no complaints Vital Signs - 24 hr 10/26/18 10/27/18 10/27/18 21:00 06:00 09:00 Temperature 97.4 F L Pulse Rate 65 Respiratory 20 20 Rate Blood Pressure 104/43 L O2 Sat by Pulse 100 100 Oximetry (%) 10/27/18 10/27/18 10/27/18 14:00 17:00 19:51 Temperature 98.1 F 98 F 97.9 F Pulse Rate 66 54 L 66 Respiratory 20 20 20 Rate Blood Pressure 137/64 106/69 114/60 O2 Sat by Pulse Oximetry (%) Current Medications Generic Name Dose Route Start Last Admin Trade Name Freq PRN Reason Stop Dose Admin Acetaminophen 650 mg 10/25/18 10:23 Tylenol - PO Q4H PRN PAIN LEVEL 1-5 Atorvastatin Calcium 20 mg 10/24/18 23:45 10/26/18 21:39 Lipitor - PO 20 mg HS REYES Administration Collagenase 1 applic 10/25/18 17:15 10/27/18 09:53 Santyl - TP 1 applic DAILY [facility] Administration Protocol Docusate Sodium 100 mg 10/25/18 22:00 10/27/18 09:51 Colace - PO 100 mg BID [facility] Administration Enalapril Maleate 20 mg 10/26/18 10:00 10/27/18 09:52 Vasotec - PO 20 mg DAILY [facility] Administration Enoxaparin Sodium 40 mg 10/25/18 18:00 10/27/18 09:52 Lovenox - SQ 40 mg DAILY [facility] Administration Furosemide 40 mg 10/26/18 10:00 10/27/18 09:52 Lasix - PO 40 mg DAILY [facility] Administration Piperacillin Sod/Tazobactam 50 mls @ 100 mls/hr 10/25/18 11:30 10/27/18 17:01 Sod 3.375 gm/ Dextrose IVPB 100 mls/hr Q8H-IV [facility] Administration Protocol Vancomycin HCl 1,000 mg in 250 mls @ 166.667 mls/hr 10/25/18 12:00 10/27/18 13:00 Vancomycin (Pre-Docked) IVPB 166.667 mls/hr Q24H [facility] Administration Protocol Insulin Aspart 1 vial 10/25/18 16:30 10/27/18 17:01 Novolog Vial Sliding Scale - SQ Not Given BIDAC [facility] Protocol Insulin Detemir 24 units 10/25/18 22:00 10/26/18 21:39 Levemir Vial SQ 24 units HS [facility] Administration Metoprolol Succinate 25 mg 10/25/18 22:00 10/27/18 09:52 Toprol Xl - PO 25 mg BID [facility] Administration Senna 2 tab 10/25/18 22:00 10/26/18 21:39 Senna - PO 2 tab HS [facility] Administration Solifenacin 5 mg 10/26/18 10:00 10/27/18 09:53 Vesicare - PO 5 mg DAILY [facility] Administration Laboratory Results - last 24 hr 10/27/18 10/27/18 10/27/18 06:11 06:30 06:30 WBC 3.8 L RBC 3.96 L Hgb 11.7 Hct 35.4 MCV 89.6 MCH 29.5 MCHC 32.9 RDW 15.1 Plt Count 226 MPV 8.5 Absolute Neuts (auto) 2.3 Neutrophils % 59.7 Lymphocytes % 26.2 D Monocytes % 9.5 Eosinophils % 3.6 Basophils % 1.0 Nucleated RBC % 0 ESR 45 H POC Glucometer 140 10/27/18 10/27/18 11:29 16:55 WBC RBC Hgb Hct MCV MCH MCHC RDW Plt Count MPV Absolute Neuts (auto) Neutrophils % Lymphocytes % Monocytes % Eosinophils % Basophils % Nucleated RBC % ESR POC Glucometer 159 106 Microbiology 10/24/18 16:55 Blood Culture - Preliminary Blood - Peripheral Venous NO GROWTH OBTAINED AFTER 72 HOURS, INCUBATION TO CONTINUE FOR 2 DAYS. 10/24/18 16:55 Blood Culture - Preliminary Blood - Peripheral Venous NO GROWTH OBTAINED AFTER 72 HOURS, INCUBATION TO CONTINUE FOR 2 DAYS. 10/25/18 12:30 Gram Stain - Final Foot - Right Plantar Wound Culture - Preliminary Morganella Morganii Staphylococcus Aureus Non Lactose Fermenting Gnb Diphtheroid/Corynebacterium S1 S2 RRR Lungs clear Abd-soft, NT rt foot dressing in place PLAN iv antibiotics bone scan on Sunday can not fit in MRI continue with meds
[2018-10-27] MEDS: VANCOMYCIN 1 GRAM (PRE-DOCKED) 1,000 MG/250 ML BAG IVPB SCH (13:00)
--- NOTE | 2018-10-27 14:58 | PN ---
Progress Note (short form) - Note Progress Note: fuv right foot. vsgi, +grade 3 wound sub right 1st mpj grade 3 wound continue santyl. awaiting bone scan. abx as per ID. HBO consult. will follow. Post op shoe to bedside.
[2018-10-27] MEDS: SENNOSIDES 8.6MG TABLET (FP) PO SCH (21:35)
[2018-10-27] MEDS: ATORVASTATIN CA 20 MG TABLET (FP) PO SCH (21:35)
[2018-10-27] MEDS: INSULIN (LEVEMIR) 100 UNITS/ML UNITS SQ SCH (21:35)
[2018-10-28] MEDS ORDERED: PIPERACILLIN/TAZOBACTAM 3.375 GM VIAL IVPB ONE ×3 (01:01→18:48)
[2018-10-28] MEDS ORDERED: DEXTROSE 5%-WATER - 50 ML IVPB ONE ×3 (01:02→18:49)
[2018-10-28] MEDS: PIPERACILLIN/TAZOB 3.375 GM 3.375 GM in DEXTROSE 5%-WATER - 50 ML IVPB SCH ×3 (01:18→18:52)
[2018-10-28] MEDS: INSULIN SLIDING SCALE (NOVOLOG) 1 VIAL SQ SCH ×2 (06:14→18:44)
[2018-10-28] MEDS: metoPROLOL SUCCINATE 25 MG TAB.SR.24H (FP) PO SCH ×2 (10:30→21:09)
[2018-10-28] MEDS: DOCUSATE SODIUM 100 MG CAPSULE (FP) PO SCH ×2 (10:30→21:09)
[2018-10-28] MEDS: FUROSEMIDE 40 MG TABLET (FP) PO SCH (10:30)
[2018-10-28] MEDS: ENOXAPARIN NA (PORCINE) 40 MG/0.4 ML DISP.SYRIN SQ SCH (10:31)
[2018-10-28] MEDS: SOLIFENACIN SUCCINATE 5 MG TAB PO SCH (10:31)
[2018-10-28] MEDS: COLLAGENASE CLOSTRIDIUM HIST. 30 GRAMS TUBE TP SCH (10:32)
[2018-10-28] MEDS: ENALAPRIL MALEATE 10 MG TABLET (FP) PO SCH (10:53)
--- NOTE | 2018-10-28 12:16 | PN ---
Progress Note (short form) - Note Progress Note: pt seen/ examined chart reviewed all f/u noted/ appreciated unable to do mri/ bone scan- due to weight will order ct scan awake. comfortable Vital Signs Temp 97.9 F 10/27/18 19:51 Pulse 66 10/27/18 19:51 Resp 20 10/27/18 19:51 BP 114/60 10/27/18 19:51 Pulse Ox 100 10/27/18 21:00 Intake & Output 10/27/18 10/28/18 10/28/18 23:59 11:59 23:59 Intake Total 1650 100 Output Total 2500 420 Balance -850 -320 Intake: IVPB 400 Oral 1250 100 Output: Urine 2500 420 Void 2500 420 Other: Voiding Method Urinal Urinal # Unmeasured Voids Void 1 1 Bowel Movement No Active Medications Acetaminophen (Tylenol -) 650 mg PO Q4H PRN PRN Reason: PAIN LEVEL 1-5 Atorvastatin Calcium (Lipitor -) 20 mg PO HS [facility] Last Admin: 10/27/18 21:35 Dose: 20 mg Collagenase (Santyl -) 1 applic TP DAILY [facility]; Protocol Last Admin: 10/28/18 10:32 Dose: 1 applic Docusate Sodium (Colace -) 100 mg PO BID [facility] Last Admin: 10/28/18 10:30 Dose: 100 mg Enalapril Maleate (Vasotec -) 20 mg PO DAILY [facility] Last Admin: 10/28/18 10:53 Dose: 20 mg Enoxaparin Sodium (Lovenox -) 40 mg SQ DAILY [facility] Last Admin: 10/28/18 10:31 Dose: 40 mg Furosemide (Lasix -) 40 mg PO DAILY [facility] Last Admin: 10/28/18 10:30 Dose: 40 mg Piperacillin Sod/Tazobactam (Sod 3.375 gm/ Dextrose) 50 mls @ 100 mls/hr IVPB Q8H-IV [facility]; Protocol Last Admin: 10/28/18 10:32 Dose: 100 mls/hr Vancomycin HCl (Vancomycin (Pre-Docked)) 1,000 mg in 250 mls @ 166.667 mls/hr IVPB Q24H [facility]; Protocol Last Admin: 10/27/18 13:00 Dose: 166.667 mls/hr Insulin Aspart (Novolog Vial Sliding Scale -) 1 vial SQ BIDAC [facility]; Protocol Last Admin: 10/28/18 06:14 Dose: Not Given Insulin Detemir (Levemir Vial) 24 units SQ HS [facility] Last Admin: 10/27/18 21:35 Dose: 24 units Metoprolol Succinate (Toprol Xl -) 25 mg PO BID [facility] Last Admin: 10/28/18 10:30 Dose: 25 mg Senna (Senna -) 2 tab PO HS [facility] Last Admin: 10/27/18 21:35 Dose: 2 tab Solifenacin (Vesicare -) 5 mg PO DAILY [facility] Last Admin: 10/28/18 10:31 Dose: 5 mg CBC, BMP 10/27/18 06:30 10/26/18 07:34 Physical Examination Constitutional: Yes: No Distress. comfortable. Eyes: Yes: Conjunctiva Clear Neck: Yes: Supple. no jvd Cardiovascular: Yes: Regular Rate and Rhythm Respiratory: Yes: Diminished Gastrointestinal: Yes: Soft, Abdomen, Obese Wound/Incision: Yes: Other (infected diabetic foot ulcer)-- Dressing + Neurological: Yes: Alert Psychiatric: Yes: Alert Assessment/Plan Discussed with pt abx Diabetic control ct scan vascular consult monitor bp/ bgm will follow Problem List - Problems (1) Abnormal EKG Code(s): R94.31 - ABNORMAL ELECTROCARDIOGRAM [ECG] [EKG] (2) Diabetic foot ulcer Code(s): E11.621 - TYPE 2 DIABETES MELLITUS WITH FOOT ULCER; L97.509 - NON- PRESSURE CHRONIC ULCER OTH PRT UNSP FOOT W UNSP SEVERITY Qualifiers: Diabetic foot ulcer location: midfoot Diabetes mellitus type: type 2 Laterality: right Non-pressure ulcer stage: unspecified non-pressure ulcer stage Qualified Code(s): E11.621 - Type 2 diabetes mellitus with foot ulcer; L97.419 - Non-pressure chronic ulcer of right heel and midfoot with unspecified severity (3) Diabetes type 2, uncontrolled Code(s): E11.65 - TYPE 2 DIABETES MELLITUS WITH HYPERGLYCEMIA (4) HTN (hypertension) Code(s): I10 - ESSENTIAL (PRIMARY) HYPERTENSION (5) Obesity Code(s): E66.9 - OBESITY, UNSPECIFIED (6) Renal insufficiency Code(s): N28.9 - DISORDER OF KIDNEY AND URETER, UNSPECIFIED
[2018-10-28] MEDS ORDERED: PT OWN MED DRAWER 7, Y5N ONE (14:10)
--- NOTE | 2018-10-28 14:22 | PN ---
Progress Note, Physician History of Present Illness: AWAKE, ALERT IN BED NO ACUTE DISTRESS AFEBRILE WOUND C/S MIXED ORGANISMS - Current Medication List Current Medications: Active Medications Acetaminophen (Tylenol -) 650 mg PO Q4H PRN PRN Reason: PAIN LEVEL 1-5 Atorvastatin Calcium (Lipitor -) 20 mg PO HS [facility] Last Admin: 10/27/18 21:35 Dose: 20 mg Collagenase (Santyl -) 1 applic TP DAILY [facility]; Protocol Last Admin: 10/28/18 10:32 Dose: 1 applic Docusate Sodium (Colace -) 100 mg PO BID [facility] Last Admin: 10/28/18 10:30 Dose: 100 mg Enalapril Maleate (Vasotec -) 20 mg PO DAILY [facility] Last Admin: 10/28/18 10:53 Dose: 20 mg Enoxaparin Sodium (Lovenox -) 40 mg SQ DAILY [facility] Last Admin: 10/28/18 10:31 Dose: 40 mg Furosemide (Lasix -) 40 mg PO DAILY [facility] Last Admin: 10/28/18 10:30 Dose: 40 mg Piperacillin Sod/Tazobactam (Sod 3.375 gm/ Dextrose) 50 mls @ 100 mls/hr IVPB Q8H-IV [facility]; Protocol Last Admin: 10/28/18 10:32 Dose: 100 mls/hr Insulin Aspart (Novolog Vial Sliding Scale -) 1 vial SQ BIDAC [facility]; Protocol Last Admin: 10/28/18 06:14 Dose: Not Given Insulin Detemir (Levemir Vial) 24 units SQ HS [facility] Last Admin: 10/27/18 21:35 Dose: 24 units Metoprolol Succinate (Toprol Xl -) 25 mg PO BID [facility] Last Admin: 10/28/18 10:30 Dose: 25 mg Senna (Senna -) 2 tab PO HS [facility] Last Admin: 10/27/18 21:35 Dose: 2 tab Solifenacin (Vesicare -) 5 mg PO DAILY [facility] Last Admin: 10/28/18 10:31 Dose: 5 mg - Objective Vital Signs: Vital Signs Temperature 97.9 F 10/27/18 19:51 Pulse Rate 66 10/27/18 19:51 Respiratory Rate 20 10/27/18 19:51 Blood Pressure 114/60 10/27/18 19:51 O2 Sat by Pulse Oximetry (%) 100 10/27/18 21:00 Constitutional: Yes: Obese Cardiovascular: Yes: Regular Rate and Rhythm, S1, S2 Respiratory: Yes: CTA Bilaterally Gastrointestinal: Yes: Normal Bowel Sounds, Soft, Abdomen, Obese. No: Tenderness Extremities: Yes: Other (R FOOT PLANTAR ULCER DRY NO DRAINAGE/ FOUL ODOR) Labs: CBC, BMP 10/27/18 06:30 10/26/18 07:34 INR, PTT INR 1.03 (0.83-1.09) 10/24/18 16:55 Assessment/Plan INFECTED DIABETIC FOOT ULCER R/O OSTEOMYELITIS FOR CT CONTINUE ZOSYN D/C VANCOMYCIN
--- NOTE | 2018-10-28 15:49 | PN ---
Progress Note (short form) - Note Progress Note: Vascular Surgery Pt seen and examined. Right plantar foot ulcer. Being followed by podiatry. MRI cannot be done due to size of pt. CT is done. Not read officially Right DFU 1. rule out osteo 2. Pt with palpable DP pulse in right foot. Bounding. No need for any vascular intervention. Will need to go back to HBO upon DC. Podiatry following. Might need picc line. Ankit Ulloa DO
[2018-10-28] MEDS: ATORVASTATIN CA 20 MG TABLET (FP) PO SCH (21:09)
[2018-10-28] MEDS: SENNOSIDES 8.6MG TABLET (FP) PO SCH (21:09)
[2018-10-28] MEDS: INSULIN (LEVEMIR) 100 UNITS/ML UNITS SQ SCH (21:13)
[2018-10-29] MEDS ORDERED: PIPERACILLIN/TAZOBACTAM 3.375 GM VIAL IVPB ONE ×3 (00:10→17:46)
[2018-10-29] MEDS ORDERED: DEXTROSE 5%-WATER - 50 ML IVPB ONE ×3 (00:10→17:46)
[2018-10-29] MEDS: PIPERACILLIN/TAZOB 3.375 GM 3.375 GM in DEXTROSE 5%-WATER - 50 ML IVPB SCH ×3 (01:33→17:51)
[2018-10-29] MEDS: INSULIN SLIDING SCALE (NOVOLOG) 1 VIAL SQ SCH ×2 (06:12→17:56)
[2018-10-29] MEDS: ENALAPRIL MALEATE 10 MG TABLET (FP) PO SCH (10:08)
[2018-10-29] MEDS: DOCUSATE SODIUM 100 MG CAPSULE (FP) PO SCH ×2 (10:08→22:31)
[2018-10-29] MEDS: FUROSEMIDE 40 MG TABLET (FP) PO SCH (10:08)
[2018-10-29] MEDS: metoPROLOL SUCCINATE 25 MG TAB.SR.24H (FP) PO SCH ×2 (10:08→22:32)
[2018-10-29] MEDS: ENOXAPARIN NA (PORCINE) 40 MG/0.4 ML DISP.SYRIN SQ SCH (10:08)
[2018-10-29] MEDS: SOLIFENACIN SUCCINATE 5 MG TAB PO SCH (10:09)
[2018-10-29] MEDS: COLLAGENASE CLOSTRIDIUM HIST. 30 GRAMS TUBE TP SCH (10:09)
--- NOTE | 2018-10-29 10:48 | PN ---
Progress Note (short form) - Note Progress Note: no complaints feels well Vital Signs - 24 hr 10/28/18 10/28/18 10/28/18 16:30 21:00 22:00 Temperature 97.8 F 97.7 F Pulse Rate 59 L 60 Respiratory 20 18 Rate Blood Pressure 143/93 145/87 O2 Sat by Pulse 100 Oximetry (%) 10/29/18 06:00 Temperature 98.1 F Pulse Rate 57 L Respiratory 18 Rate Blood Pressure 129/84 O2 Sat by Pulse Oximetry (%) Current Medications Generic Name Dose Route Start Last Admin Trade Name Freq PRN Reason Stop Dose Admin Acetaminophen 650 mg 10/25/18 10:23 Tylenol - PO Q4H PRN PAIN LEVEL 1-5 Atorvastatin Calcium 20 mg 10/24/18 23:45 10/28/18 21:09 Lipitor - PO 20 mg HS REYES Administration Collagenase 1 applic 10/25/18 17:15 10/29/18 10:09 Santyl - TP 1 applic DAILY REYES Administration Protocol Docusate Sodium 100 mg 10/25/18 22:00 10/29/18 10:08 Colace - PO 100 mg BID REYES Administration Enalapril Maleate 20 mg 10/26/18 10:00 10/29/18 10:08 Vasotec - PO 20 mg DAILY REYES Administration Enoxaparin Sodium 40 mg 10/25/18 18:00 10/29/18 10:08 Lovenox - SQ 40 mg DAILY REYES Administration Furosemide 40 mg 10/26/18 10:00 10/29/18 10:08 Lasix - PO 40 mg DAILY REYES Administration Piperacillin Sod/Tazobactam 50 mls @ 100 mls/hr 10/25/18 11:30 10/29/18 10:10 Sod 3.375 gm/ Dextrose IVPB 100 mls/hr Q8H-IV REYES Administration Protocol Insulin Aspart 1 vial 10/25/18 16:30 10/29/18 06:12 Novolog Vial Sliding Scale - SQ Not Given BIDAC [facility] Protocol Insulin Detemir 24 units 10/25/18 22:00 10/28/18 21:13 Levemir Vial SQ 24 units HS REYES Administration Metoprolol Succinate 25 mg 10/25/18 22:00 10/29/18 10:08 Toprol Xl - PO 25 mg BID REYES Administration Senna 2 tab 10/25/18 22:00 10/28/18 21:09 Senna - PO 2 tab HS REYES Administration Solifenacin 5 mg 10/26/18 10:00 10/29/18 10:09 Vesicare - PO 5 mg DAILY REYES Administration Laboratory Results - last 24 hr 10/28/18 10/28/18 10/29/18 18:43 21:13 05:54 POC Glucometer 190 153 124 Microbiology 10/24/18 16:55 Blood Culture - Preliminary Blood - Peripheral Venous NO GROWTH OBTAINED AFTER 96 HOURS, INCUBATION TO CONTINUE FOR 1 DAYS. 10/24/18 16:55 Blood Culture - Preliminary Blood - Peripheral Venous NO GROWTH OBTAINED AFTER 96 HOURS, INCUBATION TO CONTINUE FOR 1 DAYS. 10/25/18 12:30 Gram Stain - Final Foot - Right Plantar Wound Culture - Preliminary Morganella Morganii Staphylococcus Aureus Non Lactose Fermenting Gnb Diphtheroid/Corynebacterium S1 S2 RRR Lungs clear Abd-soft, NT rt foot dressing in place PLAN iv antibiotics per ID CT ext-- no osteomyelitis continue with meds BGM control
--- NOTE | 2018-10-29 11:36 | PN ---
Progress Note (short form) - Note Progress Note: fuv right foot. vsgi, +grade 3 wound sub right 1st mpj, CT negative grade 3 wound Due to severity of wound, especially depth and chronicity would treat as if patient has osteomylitis. HBO consult requested. Patient stating he may not do tx. Will follow till dc.
[2018-10-29] MEDS: ZINC SULFATE 220 MG CAPSULE (FP) PO SCH ×2 (13:30→22:31)
[2018-10-29] MEDS: ASCORBIC ACID 500 MG TABLET (FP) PO SCH (13:31)
[2018-10-29] MEDS: ATORVASTATIN CA 20 MG TABLET (FP) PO SCH (22:32)
[2018-10-29] MEDS: SENNOSIDES 8.6MG TABLET (FP) PO SCH (22:32)
[2018-10-29] MEDS: INSULIN (LEVEMIR) 100 UNITS/ML UNITS SQ SCH (22:33)
[2018-10-30] MEDS ORDERED: PIPERACILLIN/TAZOBACTAM 3.375 GM VIAL IVPB ONE ×3 (02:06→18:13)
[2018-10-30] MEDS ORDERED: DEXTROSE 5%-WATER - 50 ML IVPB ONE ×3 (02:06→18:14)
[2018-10-30] MEDS: PIPERACILLIN/TAZOB 3.375 GM 3.375 GM in DEXTROSE 5%-WATER - 50 ML IVPB SCH ×3 (02:17→18:28)
[2018-10-30] MEDS: INSULIN SLIDING SCALE (NOVOLOG) 1 VIAL SQ SCH ×2 (07:05→18:28)
[2018-10-30] MEDS: ENOXAPARIN NA (PORCINE) 40 MG/0.4 ML DISP.SYRIN SQ SCH (10:01)
[2018-10-30] MEDS: DOCUSATE SODIUM 100 MG CAPSULE (FP) PO SCH ×2 (10:01→22:04)
[2018-10-30] MEDS: metoPROLOL SUCCINATE 25 MG TAB.SR.24H (FP) PO SCH ×2 (10:02→22:05)
[2018-10-30] MEDS: ASCORBIC ACID 500 MG TABLET (FP) PO SCH (10:02)
[2018-10-30] MEDS: FUROSEMIDE 40 MG TABLET (FP) PO SCH (10:02)
[2018-10-30] MEDS: ZINC SULFATE 220 MG CAPSULE (FP) PO SCH ×2 (10:02→22:05)
[2018-10-30] MEDS: ENALAPRIL MALEATE 10 MG TABLET (FP) PO SCH (10:03)
[2018-10-30] MEDS: SOLIFENACIN SUCCINATE 5 MG TAB PO SCH (10:04)
--- NOTE | 2018-10-30 10:36 | PN ---
Progress Note (short form) - Note Progress Note: no complaints feels well Vital Signs - 24 hr 10/29/18 10/29/18 10/29/18 14:00 16:30 21:00 Temperature 98.1 F 98.3 F Pulse Rate 66 57 L Respiratory 18 20 Rate Blood Pressure 123/67 152/91 O2 Sat by Pulse 100 Oximetry (%) 10/30/18 10/30/18 00:00 06:49 Temperature 98.3 F 98.3 F Pulse Rate 62 59 L Respiratory 20 20 Rate Blood Pressure 130/67 124/82 O2 Sat by Pulse Oximetry (%) Current Medications Generic Name Dose Route Start Last Admin Trade Name Freq PRN Reason Stop Dose Admin Acetaminophen 650 mg 10/25/18 10:23 Tylenol - PO Q4H PRN PAIN LEVEL 1-5 Ascorbic Acid 500 mg 10/29/18 12:15 10/30/18 10:02 Vitamin C - PO 500 mg DAILY REYES Administration Atorvastatin Calcium 20 mg 10/24/18 23:45 10/29/18 22:32 Lipitor - PO 20 mg HS REYES Administration Collagenase 1 applic 10/25/18 17:15 10/29/18 10:09 Santyl - TP 1 applic DAILY REYES Administration Protocol Docusate Sodium 100 mg 10/25/18 22:00 10/30/18 10:01 Colace - PO 100 mg BID REYES Administration Enalapril Maleate 20 mg 10/26/18 10:00 10/30/18 10:03 Vasotec - PO 20 mg DAILY REYES Administration Enoxaparin Sodium 40 mg 10/25/18 18:00 10/30/18 10:01 Lovenox - SQ 40 mg DAILY REYES Administration Furosemide 40 mg 10/26/18 10:00 10/30/18 10:02 Lasix - PO 40 mg DAILY REYES Administration Piperacillin Sod/Tazobactam 50 mls @ 100 mls/hr 10/25/18 11:30 10/30/18 10:01 Sod 3.375 gm/ Dextrose IVPB 100 mls/hr Q8H-IV REYES Administration Protocol Insulin Aspart 1 vial 10/25/18 16:30 10/30/18 07:05 Novolog Vial Sliding Scale - SQ Not Given BIDAC REYES Protocol Insulin Detemir 24 units 10/25/18 22:00 10/29/18 22:33 Levemir Vial SQ 24 units HS REYES Administration Metoprolol Succinate 25 mg 10/25/18 22:00 10/30/18 10:02 Toprol Xl - PO 25 mg BID REYES Administration Senna 2 tab 10/25/18 22:00 10/29/18 22:32 Senna - PO 2 tab HS REYES Administration Solifenacin 5 mg 10/26/18 10:00 10/30/18 10:04 Vesicare - PO 5 mg DAILY REYES Administration Zinc Sulfate 220 mg 10/29/18 12:15 10/30/18 10:02 Orazinc - PO 220 mg BID REYES Administration Laboratory Results - last 24 hr 10/29/18 10/30/18 10/30/18 17:55 07:04 09:04 POC Glucometer 178 129 C-Reactive Protein 1.0 H S1 S2 RRR Lungs clear Abd-soft, NT rt foot dressing in place PLAN iv antibiotics per ID CT ext-- no osteomyelitis' As per Podiatry , treat as osteomyelitis due to severity of wound--ID follow up with regards to antibiotics dc planning continue with meds BGM control
[2018-10-30] MEDS: COLLAGENASE CLOSTRIDIUM HIST. 30 GRAMS TUBE TP SCH (15:55)
--- NOTE | 2018-10-30 17:26 | PN ---
Progress Note (short form) - Note Progress Note: fuv right foot. vsgi, +grade 3 wound sub right 1st mpj, CT negative grade 3 wound HBO consult done. Patient does not think he will do it. Santyl dressing changes daily. Dr. kristin Pantoja covering me while I am away.
[2018-10-30] MEDS: INSULIN (LEVEMIR) 100 UNITS/ML UNITS SQ SCH (22:04)
[2018-10-30] MEDS: ATORVASTATIN CA 20 MG TABLET (FP) PO SCH (22:05)
[2018-10-30] MEDS: SENNOSIDES 8.6MG TABLET (FP) PO SCH (22:05)
[2018-10-31] MEDS ORDERED: DEXTROSE 5%-WATER - 50 ML IVPB ONE ×2 (01:03→09:31)
[2018-10-31] MEDS ORDERED: PIPERACILLIN/TAZOBACTAM 3.375 GM VIAL IVPB ONE ×2 (01:03→09:31)
[2018-10-31] MEDS: PIPERACILLIN/TAZOB 3.375 GM 3.375 GM in DEXTROSE 5%-WATER - 50 ML IVPB SCH ×2 (01:15→09:33)
[2018-10-31] MEDS: INSULIN SLIDING SCALE (NOVOLOG) 1 VIAL SQ SCH (05:59)
[2018-10-31] MEDS: DOCUSATE SODIUM 100 MG CAPSULE (FP) PO SCH (09:33)
[2018-10-31] MEDS: metoPROLOL SUCCINATE 25 MG TAB.SR.24H (FP) PO SCH (09:33)
[2018-10-31] MEDS: ZINC SULFATE 220 MG CAPSULE (FP) PO SCH (09:33)
[2018-10-31] MEDS: ASCORBIC ACID 500 MG TABLET (FP) PO SCH (09:34)
[2018-10-31] MEDS: FUROSEMIDE 40 MG TABLET (FP) PO SCH (09:34)
[2018-10-31] MEDS: ENOXAPARIN NA (PORCINE) 40 MG/0.4 ML DISP.SYRIN SQ SCH (09:34)
[2018-10-31] MEDS: SOLIFENACIN SUCCINATE 5 MG TAB PO SCH (09:35)
[2018-10-31] MEDS: COLLAGENASE CLOSTRIDIUM HIST. 30 GRAMS TUBE TP SCH (09:35)
[2018-10-31] MEDS: ENALAPRIL MALEATE 10 MG TABLET (FP) PO SCH (09:35)
--- NOTE | 2018-10-31 11:09 | DS ---
Physical Examination Vital Signs: Vital Signs Temperature 98 F 10/31/18 06:48 Pulse Rate 66 10/31/18 06:48 Respiratory Rate 20 10/31/18 06:48 Blood Pressure 134/89 10/31/18 06:48 O2 Sat by Pulse Oximetry (%) 99 10/30/18 21:00 Constitutional: Yes: No Distress Cardiovascular: Yes: Regular Rate and Rhythm Respiratory: Yes: CTA Bilaterally Gastrointestinal: Yes: Normal Bowel Sounds, Soft. No: Tenderness Extremities: Yes: Other (rt foot ulcer- deep) Edema: No Labs: CBC, BMP 10/27/18 06:30 10/26/18 07:34 Discharge Summary Reason For Visit: PLANTAR ULCER OF RIGHT FOOT Current Active Problems Abnormal EKG (Acute) Diabetic foot ulcer (Acute) Non-pressure chronic ulcer of other part of unspecified foot limited to breakdown of skin (Acute) Hospital Course: here for non healing ulcer right foot Pt was seen buy ID and Podiatry and vascular on iv antibiotics multiple organisms in wound culture CT ext-- no osteomyelitis-- but as per Podiatry- will treat as osteomyelitis with iv antibiotics Pt dc home on picc line with Zosyn x 2 weeks, advised to follow up at wound center and may change antibiotics to po levaquin afterwards Condition: Improved - Instructions Disposition: HOME - Home Medications Comprehensive Discharge Medication List: Ambulatory Orders Atorvastatin Ca [Lipitor] 10 mg PO HS #0 tablet 02/15/13 Enalapril Maleate [Vasotec -] 20 mg PO DAILY #0 tablet 02/15/13 Oxybutynin Chloride [Ditropan -] 5 mg PO DAILY 03/27/16 Amlodipine Besylate [Norvasc -] 10 mg PO DAILY 03/28/16 Furosemide [Lasix -] 40 mg PO DAILY 03/28/16 Metoprolol Succinate [Toprol XL -] 25 mg PO BID 03/28/16 Methocarbamol [Robaxin -] 750 mg PO BID PRN #20 tablet 05/27/16 Insulin (Levemir) [Levemir Vial] 24 units SQ HS #1 units 03/11/18 Sennosides [Senna -] 2 tab PO HS tablet 03/11/18 Docusate Sodium [Colace -] 100 mg PO BID #14 capsule 05/29/18
--- NOTE | 2018-10-31 11:48 | PN ---
Progress Note, Physician History of Present Illness: AWAKE, ALERT IN BED NO ACUTE DISTRESS AFEBRILE WOUND C/S MIXED ORGANISMS - Current Medication List Current Medications: Active Medications Acetaminophen (Tylenol -) 650 mg PO Q4H PRN PRN Reason: PAIN LEVEL 1-5 Ascorbic Acid (Vitamin C -) 500 mg PO DAILY [facility] Last Admin: 10/31/18 09:34 Dose: 500 mg Atorvastatin Calcium (Lipitor -) 20 mg PO HS [facility] Last Admin: 10/30/18 22:05 Dose: 20 mg Collagenase (Santyl -) 1 applic TP DAILY [facility]; Protocol Last Admin: 10/31/18 09:35 Dose: 1 applic Docusate Sodium (Colace -) 100 mg PO BID [facility] Last Admin: 10/31/18 09:33 Dose: 100 mg Enalapril Maleate (Vasotec -) 20 mg PO DAILY [facility] Last Admin: 10/31/18 09:35 Dose: 20 mg Enoxaparin Sodium (Lovenox -) 40 mg SQ DAILY [facility] Last Admin: 10/31/18 09:34 Dose: 40 mg Furosemide (Lasix -) 40 mg PO DAILY [facility] Last Admin: 10/31/18 09:34 Dose: 40 mg Piperacillin Sod/Tazobactam (Sod 3.375 gm/ Dextrose) 50 mls @ 100 mls/hr IVPB Q8H-IV [facility]; Protocol Last Admin: 10/31/18 09:33 Dose: 100 mls/hr Insulin Aspart (Novolog Vial Sliding Scale -) 1 vial SQ BIDAC [facility]; Protocol Last Admin: 10/31/18 05:59 Dose: Not Given Insulin Detemir (Levemir Vial) 24 units SQ HS [facility] Last Admin: 10/30/18 22:04 Dose: 24 units Metoprolol Succinate (Toprol Xl -) 25 mg PO BID [facility] Last Admin: 10/31/18 09:33 Dose: 25 mg Senna (Senna -) 2 tab PO HS [facility] Last Admin: 10/30/18 22:05 Dose: 2 tab Solifenacin (Vesicare -) 5 mg PO DAILY [facility] Last Admin: 10/31/18 09:35 Dose: 5 mg Zinc Sulfate (Orazinc -) 220 mg PO BID [facility] Last Admin: 10/31/18 09:33 Dose: 220 mg - Objective Vital Signs: Vital Signs Temperature 98 F 10/31/18 06:48 Pulse Rate 66 10/31/18 06:48 Respiratory Rate 20 10/31/18 06:48 Blood Pressure 134/89 10/31/18 06:48 O2 Sat by Pulse Oximetry (%) 99 10/30/18 21:00 Constitutional: Yes: No Distress Cardiovascular: Yes: Regular Rate and Rhythm, S1, S2 Respiratory: Yes: CTA Bilaterally Gastrointestinal: Yes: Normal Bowel Sounds, Soft, Abdomen, Obese. No: Tenderness Extremities: Yes: Other (PLANTAR ULCER NO PURULENT DRAINAGE) Labs: CBC, BMP 10/27/18 06:30 10/26/18 07:34 INR, PTT INR 1.03 (0.83-1.09) 10/24/18 16:55 Assessment/Plan INFECTED DIABETIC FOOT ULCER R/O OSTEOMYELITIS CONTINUE ZOSYN PICC FOR OUTPATIENT ZOSYN 4-6 WK ( IF CLINICAL IMPROVEMENT AT 4WK WILL CONSIDER SWITCH TO PO QUINOLONE TO FINISH OUT 6WK COURSE) WILL FOLLOW UP IN WOUND CARE CENTER
[2018-10-31 15:23] VITALS: BP 137/84; PULSE 68; TEMP 98.6
== END 2018-10-31 16:49 | disposition home or self-care (01) | DRG 638 ==
LOC: JER 14:41 → JERBED 16:57 → J8W 22:05
PROVIDERS: ADMIT Internal Medicine; ATTEND Internal Medicine
PROC: 02HV33Z Insertion of Infusion Device into Superior Vena Cava, Percutaneous Approach (ICD-10-PCS; principal; 2018-10-31)
PROC: B518ZZA Fluoroscopy of Superior Vena Cava, Guidance (ICD-10-PCS; 2018-10-31)
DX: E11.621 Type 2 diabetes mellitus with foot ulcer (principal); L97.518 Non-pressure chronic ulcer of other part of right foot with other specified severity; Z68.42 Body mass index [BMI] 45.0-49.9, adult; E11.65 Type 2 diabetes mellitus with hyperglycemia; N28.9 Disorder of kidney and ureter, unspecified; E66.01 Morbid (severe) obesity due to excess calories; I10 Essential (primary) hypertension; R94.31 Abnormal electrocardiogram [ECG] [EKG]; E78.5 Hyperlipidemia, unspecified; N40.0 Benign prostatic hyperplasia without lower urinary tract symptoms
CPT/HCPCS: 36415; 36569; 73630-TC-RT-FY; 73700-TC-RT; 77001-TC-FY; 80053; 80061; 82962; 83036; 83605; 83721; 84443; 85025; 85610; 85651; 86140; 87040; 87070; 87077; 87186; 87205; 93005; 93010; 99284-25; C1751; G0463-25

== ENCOUNTER 2019-01-21 08:06 | Emergency (ER) | payer BC ==
[2019-01-21 08:16] VITALS: BP 166/87; TEMP 100.7; BMI 45.9
--- NOTE | 2019-01-21 08:21 | PDOC ---
History of Present Illness - General Chief Complaint: Cold Symptoms Stated Complaint: SICK/ COUGH Time Seen by Provider: 01/21/19 08:20 - History of Present Illness Initial Comments: 01/21/19 08:21 CHIEF COMPLAINT: cough HISTORY OF PRESENT ILLNESS: 53 yo M with hx of NIDDM2, BPH, HTN, HLD, and chronic diabetic foot ulcers, presents to ED with cough x 4 days. Patient reports nonproductive cough unrelieved by Nyquil or Theraflu. Patient is unsure whether or not he had a fever at home but denies any chills, nausea, vomiting, or diarrhea. No recent travel or sick contacts. PAST MEDICAL HISTORY: Denies past medical history FAMILY HISTORY: Denies SOCIAL HISTORY: Denies tobacco, alcohol, illicit drug use. SURGICAL HISTORY: Denies ALLERGIES: fish, iodine REVIEW OF SYSTEMS General/Constitutional: Denies fever or chills. Denies weakness, weight change. HEENT: Denies change in vision. Denies ear pain or discharge. Denies sore throat. Cardiovascular: Denies chest pain or shortness of breath. Respiratory: Cough x 4-5 days. Gastrointestinal: Denies nausea, vomiting, diarrhea or constipation. Denies rectal bleeding. Genitourinary: Denies dysuria, frequency, or change in urination. Musculoskeletal: Denies joint or muscle swelling or pain. Denies neck or back pain. Skin and breasts: Denies rash or easy bruising. Neurologic: Denies headache, vertigo, loss of consciousness, or loss of sensation. Psychiatric: Denies depression or anxiety. Endocrine: Denies increased thirst. Denies abnormal weight change. Hematologic/Lymphatic: Denies anemia, easy bleeding, or history of blood clots. Allergic/Immunologic: Denies hives or skin allergy. Denies latex allergy. PHYSICAL EXAM General Appearance: Well-appearing, appropriately dressed. No apparent distress , no intoxication. HEENT: EOMI, PERRLA, normal ENT inspection, normal voice, TMs normal, pharynx normal. No conjunctival pallor. No photophobia, scleral icterus. Neck: Supple. Trachea midline. No tenderness, rigidity, carotid bruit, stridor , lymphadenopathy, or thyromegaly. Respiratory/Chest: Lungs CTAB. No shortness of breath, chest tenderness, respiratory distress, accessory muscle use. No crackles, rales, rhonchi, stridor , wheezing, dullness Cardiovascular: RRR. S1, S2. No JVD, murmur, bradycardia, tachycardia. Vascular Pulses: Dorsalis-Pedis (R): 2+, Dorsalis-Pedis (L): 2+ Gastrointestinal/Abdominal: Normal bowel sounds. Abdomen soft, non-distended. No tenderness or rebound tenderness. No organomegaly, pulsatile mass, guarding , hernia, hepatomegaly, splenomegaly. Lymphatic: No adenopathy, tenderness. Musculoskeletal/Extremities: Normal inspection. FROM of all extremities, normal capillary refill. Pelvis Stable. No CVA tenderness. No tenderness to extremities, pedal edema, swelling, erythema or deformity. Integumentary: Appropriate color, dry, warm. 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 Fully oriented, alert. Appropriate mood/affect. Motor strength 5/5. No appreciable EOM palsy, facial droop or sensory deficit. Past History - Past Medical History Allergies/Adverse Reactions: Allergies Allergy/AdvReac Type Severity Reaction Status Date / Time fish derived Allergy Verified 01/21/19 08:13 iodine Allergy Verified 01/21/19 08:13 shellfish derived Allergy Difficulty Verified 01/21/19 08:13 Breathing Home Medications: Ambulatory Orders Enalapril Maleate [Vasotec -] 20 mg PO DAILY #0 tablet 02/15/13 Ascorbic Acid [Vitamin C -] 500 mg PO DAILY #60 tablet 10/31/18 Atorvastatin Ca [Lipitor] 10 mg PO HS #60 tablet 10/31/18 Furosemide [Lasix -] 40 mg PO DAILY #30 tablet 10/31/18 Metoprolol Succinate [Toprol XL -] 25 mg PO BID #60 tab.sr.24h 10/31/18 Oxybutynin Chloride [Ditropan -] 5 mg PO DAILY #30 tablet 10/31/18 Sennosides [Senna -] 2 tab PO HS #60 tablet 10/31/18 Zinc Sulfate [Orazinc -] 220 mg PO BID #60 capsule 10/31/18 Metformin HCl [Glucophage] 500 mg PO BID 11/07/18 Azithromycin [Zithromax 250mg Tablets -] 250 mg PO UTDICT #6 tab 01/21/19 Benzonatate [Tessalon Pearls -] 100 mg PO TID #21 capsule 01/21/19 Anemia: No Asthma: No Cancer: No Cardiac Disorders: No CVA: No COPD: No CHF: No DVT: No Dementia: No Diabetes: Yes (NIDDM) GI Disorders: Yes (PANCREATITIS) Disorders: No HTN: Yes Hypercholesterolemia: Yes Liver Disease: No Seizures: No Thyroid Disease: No - Surgical History Abdominal Surgery: No Appendectomy: No Cardiac Surgery: No Cholecystectomy: No Lung Surgery: No Neurologic Surgery: No Orthopedic Surgery: Yes (BILATERAL SHOULDER SURGERY) - Immunization History Immunization Up to Date: Yes - Psycho Social/Smoking Cessation Hx Smoking Status: Yes Smoking History: Former smoker Have you smoked in the past 12 months: No Number of Cigarettes Smoked Daily: 0 If you are a former smoker, when did you quit?: 2004 Information on smoking cessation initiated: No Hx Alcohol Use: No Drug/Substance Use Hx: No Substance Use Type: Alcohol Hx Substance Use Treatment: No *Physical Exam - Vital Signs Last Vital Signs Temp Pulse Resp BP Pulse Ox 100.7 F H 10 L 20 166/87 95 01/21/19 08:15 01/21/19 08:15 01/21/19 08:15 01/21/19 08:15 01/21/19 08:15 Medical Decision Making - Medical Decision Making 01/21/19 08:37 53 yo M with hx of NIDDM2, BPH, HTN, HLD, and chronic diabetic foot ulcers, presents to ED with cough x 4 days. -cxr -Tylenol Discharge - Discharge Information Problems reviewed: Yes Clinical Impression/Diagnosis: Upper respiratory infection Qualifiers: URI type: unspecified viral URI Qualified Code(s): J06.9 - Acute upper respiratory infection, unspecified Condition: Stable Disposition: HOME - Admission No - Additional Discharge Information Prescriptions: Azithromycin [Zithromax 250mg Tablets -] 250 mg PO UTDICT #6 tab Benzonatate [Tessalon Pearls -] 100 mg PO TID #21 capsule - Follow up/Referral Referrals: Alexus Martin MD [Primary Care Provider] - - Patient Discharge Instructions Patient Printed Discharge Instructions: DI for Acute Bronchitis - Post Discharge Activity
[2019-01-21] MEDS ORDERED: ACETAMINOPHEN 500 MG TABLET (FP) PO ONE (08:28)
[2019-01-21 08:48] VITALS: PULSE 106
[2019-01-21] MEDS ORDERED: ACETAMINOPHEN 325 MG TABLET (FP) ONE (09:03)
== END 2019-01-21 09:29 | disposition home or self-care (01) ==
LOC: JERFT 08:06
DX: J06.9 Acute upper respiratory infection, unspecified (principal); B97.89 Other viral agents as the cause of diseases classified elsewhere; I10 Essential (primary) hypertension; E78.5 Hyperlipidemia, unspecified; E11.621 Type 2 diabetes mellitus with foot ulcer; Z79.84 Long term (current) use of oral hypoglycemic drugs; N40.0 Benign prostatic hyperplasia without lower urinary tract symptoms; Z91.013 Allergy to seafood; Z88.8 Allergy status to other drugs, medicaments and biological substances
CPT/HCPCS: 71046-TC-FY; 99281-25

== ENCOUNTER 2019-05-08 21:07 | Inpatient (IN) | payer BC, OTHER ==
--- NOTE | 2019-05-08 21:16 | PDOC ---
Rapid Medical Evaluation Time Seen by Provider: 05/08/19 21:13 Medical Evaluation: Allergies Allergy/AdvReac Type Severity Reaction Status Date / Time fish derived Allergy Verified 01/21/19 08:13 iodine Allergy Verified 01/21/19 08:13 shellfish derived Allergy Difficulty Verified 01/21/19 08:13 Breathing 05/08/19 21:13 CC: dizziness Pt is a 53 y/o male with complaint of dizziness and that his R foot wound has opened up. Has a history of DM. Noticed some drainage from the wound. Denies any chills or known fevers. The patient has had this wound treated in the past by podiatry. has neuropathy in his feet. Brief exam: Non-toxic appearing, no distress, walking without difficulty. Orders: labs, saline lock, R foot xray To ED for further evaluation Discharge Disposition - Diagnosis Wound of right foot - Referrals - Patient Instructions - Post Discharge Activity
[2019-05-08 21:59] LABS: BASO % 1.1 % (0-2.0); HEMATOCRIT 38.9 % (35.4-49); HEMOGLOBIN 12.7 GM/dL (11.7-16.9); LYMPH % 24.2 % (8-40); MCH 29.4 pg (25.7-33.7); MCHC 32.6 g/dl (32.0-35.9); MEAN CELL VOLUME 90.2 fl (80-96); MEAN PLT VOLUME 8.9 fl (7.5-11.1); MONO % 9.7 % (3.8-10.2); PLATELET COUNT 232 K/MM3 (134-434); RBC 4.31 M/mm3 (4.00-5.60); RDW 15.4 % (11.9-15.9)
[2019-05-08 22:32] LABS: ALBUMIN 3.8 g/dl (3.4-5.0); ALK PHOS 82 U/L (45-117); ANION GAP 5 MMOL/L (8-16); BILIRUBIN,TOTAL 0.4 mg/dL (0.2-1); BLOOD UREA NITROGEN 27.1 mg/dL (7-18); CALCIUM 9.2 mg/dL (8.5-10.1); CHLORIDE 104 mmol/L (98-107); CO2 29 mmol/L (21-32); CREATININE 1.4 mg/dL (0.55-1.3); GLUCOSE,RANDOM 108 mg/dL (74-106); SGOT/AST 20 U/L (15-37); SGPT/ALT 28 U/L (13-61); SODIUM 138 mmol/L (136-145); TOT PROT 8.4 g/dl (6.4-8.2)
[2019-05-08] MEDS ORDERED: MEROPENEM 1 GM in DEXTROSE 5%-WATER 100 ML IVPB ONE (22:56)
[2019-05-08] MEDS ORDERED: VANCOMYCIN 1 GM in D5W (PRE-DOCKED) 1,000 MG/250 ML IVPB ONE (23:00)
--- NOTE | 2019-05-08 23:01 | PDOC ---
History of Present Illness - General Chief Complaint: Wound Stated Complaint: DIZZY Time Seen by Provider: 05/08/19 21:13 - History of Present Illness Initial Comments: 05/08/19 23:02 53y/o M hx of DM, HTN, HLD, renal insufficiency and chronic foot ulcer, peripheral neuropathy presents to the ED with complaints of worsening foot ulcer and lightheadeness. He reports that ulcer had completely healed and and re -opened 3 weeks ago. He has been seen by wound care in the past (Dr. Gunderson) and has a hx of non-compliance with medications, wound care and getting his orthotic shoes. He denies any pus/drainage from his wound, erythema, warmth, fevers, chills. his episodes of lightheadedness are not accompanied by shortness of breath, palpitations, chest pain, loss of consciouness, numbness/tingline one sided or genralized. nausea or vomiting and he denies any head trauma 05/08/19 23:15 05/08/19 23:23 Past History - Past Medical History Allergies/Adverse Reactions: Allergies Allergy/AdvReac Type Severity Reaction Status Date / Time fish derived Allergy Verified 05/08/19 21:14 iodine Allergy Verified 05/08/19 21:14 shellfish derived Allergy Difficulty Verified 05/08/19 21:14 Breathing Home Medications: Ambulatory Orders Enalapril Maleate [Vasotec -] 20 mg PO DAILY #0 tablet 02/15/13 Ascorbic Acid [Vitamin C -] 500 mg PO DAILY #60 tablet 10/31/18 Atorvastatin Ca [Lipitor] 10 mg PO HS #60 tablet 10/31/18 Furosemide [Lasix -] 40 mg PO DAILY #30 tablet 10/31/18 Metoprolol Succinate [Toprol XL -] 25 mg PO BID #60 tab.sr.24h 10/31/18 Oxybutynin Chloride [Ditropan -] 5 mg PO DAILY #30 tablet 10/31/18 Sennosides [Senna -] 2 tab PO HS #60 tablet 10/31/18 Metformin HCl [Glucophage] 500 mg PO BID 11/07/18 Benzonatate [Tessalon Perle -] 100 mg PO TID #21 capsule 01/21/19 Gauze Bandage [Bandage Roll] 1 each TP BID #7 bandage 05/10/19 Gauze Bandage [Gauze Pad] 1 each TP BID #60 bandage 05/10/19 Gauze Bandage/Elastic Bandage [Unna-Flex Convenience Pack] 1 each TP BID 5 Days combo..pkg 05/10/19 Zinc Sulfate [Orazinc -] 220 mg PO BID #60 capsule 05/10/19 Anemia: No Asthma: No Cancer: No Cardiac Disorders: No CVA: No COPD: No CHF: No DVT: No Dementia: No Diabetes: Yes (NIDDM) GI Disorders: Yes (PANCREATITIS) Disorders: No HTN: Yes Hypercholesterolemia: Yes Liver Disease: No Seizures: No Thyroid Disease: No - Surgical History Abdominal Surgery: No Appendectomy: No Cardiac Surgery: No Cholecystectomy: No Lung Surgery: No Neurologic Surgery: No Orthopedic Surgery: Yes (BILATERAL SHOULDER SURGERY) - Immunization History Immunization Up to Date: Yes - Psycho Social/Smoking Cessation Hx Smoking Status: Yes Smoking History: Never smoked Have you smoked in the past 12 months: No Number of Cigarettes Smoked Daily: 0 If you are a former smoker, when did you quit?: 2004 Information on smoking cessation initiated: No Hx Alcohol Use: No Drug/Substance Use Hx: No Substance Use Type: Alcohol Hx Substance Use Treatment: No Review of Systems - Review of Systems Constitutional: No: Chills, Fever HEENTM: No: Eye Pain, Blurred Vision Respiratory: No: Cough, Shortness of Breath Cardiac (ROS): Yes: Lightheadedness. No: Chest Pain ABD/GI: No: Nausea, Vomiting : No: Burning, Dysuria Musculoskeletal: No: Back Pain, Joint Pain Integumentary: Yes: Change in Hair/Nails, Dryness, Lesions Neurological: No: Headache, Tingling *Physical Exam - Vital Signs Last Vital Signs Temp Pulse Resp BP Pulse Ox 98.3 F 90 16 170/97 98 05/08/19 21:14 05/08/19 21:14 05/08/19 21:14 05/08/19 21:14 05/08/19 21:14 - Physical Exam General Appearance: Yes: Nourished, Appropriately Dressed, Obese HEENT: positive: EOMI, SUSI, Normal Voice, Other Neck: positive: Supple. negative: Tender, Stridor Respiratory/Chest: positive: Lungs Clear, Normal Breath Sounds. negative: Chest Tender, Respiratory Distress, Accessory Muscle Use Cardiovascular: positive: Regular Rhythm, Regular Rate, S1, S2. negative: Edema , JVD Gastrointestinal/Abdominal: positive: Normal Bowel Sounds, Soft, Protuberent ( obese ). negative: Tender, Distended, Rebound, Tenderness Musculoskeletal: positive: Normal Inspection. negative: CVA Tenderness, CVA Tenderness (R), Decreased Range of Motion Extremity: positive: Other (chronic stasis dermatitis of bilateral lower extremities. ulcer on distal plantar surface of foot 4-5 cm in diameter. stage 2. 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 intact, Fully Oriented, Alert, Normal Mood/ Affect, Motor Strength 08/11 ED Treatment Course - LABORATORY CBC & Chemistry Diagram: 05/09/19 05:20 05/09/19 05:20 - ADDITIONAL ORDERS Additional order review: Laboratory Results 05/08/19 21:29 Sodium 138 Potassium 4.0 Chloride 104 Carbon Dioxide 29 Anion Gap 5 L BUN 27.1 H Creatinine 1.4 H Est GFR (CKD-EPI)AfAm 65.55 Est GFR (CKD-EPI)NonAf 56.56 Random Glucose 108 H Calcium 9.2 Total Bilirubin 0.4 AST 20 ALT 28 Alkaline Phosphatase 82 Total Protein 8.4 H Albumin 3.8 05/08/19 21:29 RBC 4.31 MCV 90.2 MCHC 32.6 RDW 15.4 MPV 8.9 Neutrophils % 63.0 Lymphocytes % 24.2 Monocytes % 9.7 Eosinophils % 2.0 Basophils % 1.1 Medical Decision Making - Medical Decision Making 05/08/19 23:01 53y/o M hx of DM, HTN, HLD, renal insufficiency and chronic foot ulcer, peripheral neuropathy presents to the ED with complaints of worsening foot ulcer and lightheadeness Arrhythmias vs tia vs possible infection of stage 2 ulcer. EKG: nsr, normal ekg Meds: 1gvanc and 1g meropenem for diabetic ulcer 05/08/19 23:56 mildly elevated creatinine and glucose (1.4 and 108) respective white count wnl Trop negative no arrhythmias on EKG all other labs unremarkable Pt will be admiited for IV antibiotics and wound care. Admitted to hospitalist. 05/08/19 23:57 Discharge - Discharge Information Problems reviewed: Yes Clinical Impression/Diagnosis: Wound of right foot Type 2 diabetes mellitus with foot ulcer Qualifiers: Diabetes mellitus longterm insulin use: unspecified intermediate card tender insulin use status Qualified Code(s): E11.621 - Type 2 diabetes mellitus with foot ulcer; L97.509 - Non-pressure chronic ulcer of other part of unspecified foot with unspecified severity Condition: Fair Disposition: HOME - Follow up/Referral - Patient Discharge Instructions - Post Discharge Activity
--- NOTE | 2019-05-08 23:07 | PDOC ---
Documentation entered by Alexis Iyer SCRIBE, acting as scribe for Misty Valentin DO. Misty Valentin DO: This documentation has been prepared by the Jaylon ruelas Daniel, SCRIBE, under my direction and personally reviewed by me in its entirety. I confirm that the documentation accurately reflects all work, treatment, procedures, and medical decision making performed by me. Attending Attestation - Resident Resident Name: AndreyJanakankurfuentes - ED Attending Attestation I have performed the following: I have examined & evaluated the patient, The case was reviewed & discussed with the resident, I agree w/resident's findings & plan, Exceptions are as noted - HPI HPI: 05/08/19 22:31 The patient is a 53 year old male with a past medical history of HTN, HLD, diabetes, and venous insufficiency here today for evaluation of right foot wound and dizziness. The patient reports that he follows with wound care and podiatry for his right foot wound which opened again 2-3 weeks ago. He reports that he was prompted to come to the ER due to episodes of dizziness. Patient denies headache. Denies fever, chills. Denies chest pain, shortness of breath. Denies nausea, vomiting, diarrhea, abdominal pain. Allergies: fish derived, iodine, shellfish derived PCP: Alexus Ji - Physicial Exam PE: 05/08/19 22:32 Constitutional: Awake, alert, oriented. No acute distress. Head: Normocephalic. Atraumatic Eyes: PERRL. EOMI. Conjunctivae are not pale. ENT: Mucous membranes are moist and intact. Posterior pharynx without exudates or erythema. Uvula midline. Neck: Supple. Full ROM. No lymphadenopathy. Cardiovascular: Regular rate. Regular rhythm. S1, S2 regular. Distal pulses are 2+ and symmetric. Pulmonary/Chest: No evidence of respiratory distress. Clear to auscultation bilaterally No wheezing, rales or rhonchi. Abdominal: +morbidly obese. Soft and non-distended. There is no tenderness. No rebound, guarding or rigidity. No organomegaly. No palpable masses. Good bowel sounds. Back: No CVA tenderness. Musculoskeletal: +chronic venous stasis changes bilaterally in the lower extremities. +stage 2 5 cm wound to the plantar surface of the right foot under the 3rd, 4th, and 5th metatarsals with boggy tissue surrounding. No drainage. No edema. No cyanosis. No clubbing. Full range of motion in all extremities. No calf tenderness. Radial/pedal pulses are intact and 2+ bilaterally Skin: Skin is warm and dry. No petechiae. No purpura. Neurological: Alert and oriented to person, place, and time. Cranial nerves II -XII are grossly intact. Normal speech. Strength is grossly symmetric. No sensory deficits. Psychiatric: Good eye contact. Normal interaction, affect and behavior. - Medical Decision Making 05/08/19 23:03 a/p: 53yo male with hx of dm with a wound to the bottom of his R foot -pt states the wound had improved with wound care, but re-opened 3 weeks ago -no fluctuance, no erythema, no drainage, boggy tissue present -about 4cm in diameter wound to plantar surface of the foot -pt states he has not followed with dr monk, dr tinajero or dr. basurto -pt denies f/c -pt with a a dm foot wound to the bottom of the foot -will start iv abx, prior cultures + staph, pseudomonas, morganella = will start vanco and merrem -pt will need admission 05/08/19 23:[address] alexus ji microblog sent to [facility] for admission 05/08/19 23:30 pt with dm foot wound case discussed with [employer] who accepts pt to service Discharge - Discharge Information Problems reviewed: Yes Clinical Impression/Diagnosis: Wound of right foot, Type 2 diabetes mellitus with foot ulcer Condition: Fair - Admission Yes - Follow up/Referral Referrals: Alexus iJ MD [Primary Care Provider] - - Patient Discharge Instructions - Post Discharge Activity Heart Score/ECG Review - ECG Intrepretation Comment:: 05/08/19 23:03 sinus at 77, nl axis, nl interval, no acute st/t wave findings
[2019-05-08] MEDS ORDERED: MEROPENEM 1 GM VIAL (RESTRICTED TO ID) IVPB ONE (23:40)
[2019-05-08] MEDS ORDERED: VANCOMYCIN 1 GRAM (PRE-DOCKED) 1,000 MG/250 ML BAG IVPB ONE (23:40)
[2019-05-08] MEDS ORDERED: SODIUM CHLORIDE 1,000 ML IV SCH (23:45)
--- NOTE | 2019-05-09 00:07 | HP ---
CHIEF COMPLAINT: dizziness PCP:Dr. Alexus Carrillo Wound Dr.: Dr. Ulloa ID: Dr. Holden HISTORY OF PRESENT ILLNESS: 53 year old male with a past medical history significant for hypertension, hyperlipidemia, diabetes mellitus,and venous insufficiency/peripheral neuropathy who presented for evaluation of right foot wound and symptoms of dizziness. He follows with wound care and podiatry for his right foot wound which has opened again 2-3 weeks ago. He denied fever, chills, nausea, vomiting , odor, pus or erythema to his wound. He has a history of noncompliance to medications. He denied chest pain, shortness of breath, blurry vision, syncopy. He reports drinking an adequate amount of water. ER course notable for: (1)Elevated BP of 170/97, EKG normal sinus rhythm, no arrthymias, troponin normal (2)Open right foot wound secondary to diabetic ulcer , WBC normal, currently afebrile, received dose of IV vanocmycin and meropenam (3)Renal Insufficiency with creatinine of 1.4 Recent Travel: no PAST MEDICAL HISTORY: Hypertension Hyperlipidemia Diabetes Mellitus Venous Insufficiency PAST SURGICAL HISTORY: none Social History: Smoking: previously smoked Alcohol:drinks beer occasionally Drugs: denies Allergies fish derived Allergy (Verified 05/08/19 21:14) iodine Allergy (Verified 05/08/19 21:14) shellfish derived Allergy (Verified 05/08/19 21:14) Difficulty Breathing HOME MEDICATIONS: Home Medications Medication Instructions Recorded Enalapril Maleate [Vasotec -] 20 mg PO DAILY #0 tablet 02/15/13 Ascorbic Acid [Vitamin C -] 500 mg PO DAILY #60 tablet 10/31/18 Atorvastatin Ca [Lipitor] 10 mg PO HS #60 tablet 10/31/18 Furosemide [Lasix -] 40 mg PO DAILY #30 tablet 10/31/18 Metoprolol Succinate [Toprol XL -] 25 mg PO BID #60 tab.sr.24h 10/31/18 Oxybutynin Chloride [Ditropan -] 5 mg PO DAILY #30 tablet 10/31/18 Sennosides [Senna -] 2 tab PO HS #60 tablet 10/31/18 Zinc Sulfate [Orazinc -] 220 mg PO BID #60 capsule 10/31/18 Metformin HCl [Glucophage] 500 mg PO BID 11/07/18 Azithromycin [Zithromax 250mg 250 mg PO UTDICT #6 tab 01/21/19 Tablets -] Benzonatate [Tessalon Pearls -] 100 mg PO TID #21 capsule 01/21/19 REVIEW OF SYSTEMS CONSTITUTIONAL: Absent: fever, chills, diaphoresis, generalized weakness, malaise, loss of appetite, weight change HEENT: Absent: rhinorrhea, nasal congestion, throat pain, throat swelling, difficulty swallowing, mouth swelling, ear pain, eye pain, visual changes CARDIOVASCULAR: Absent: chest pain, syncope, palpitations, irregular heart rate, lightheadedness , peripheral edema + dizziness RESPIRATORY: Absent: cough, shortness of breath, dyspnea with exertion, orthopnea, wheezing, stridor, hemoptysis GASTROINTESTINAL: Absent: abdominal pain, abdominal distension, nausea, vomiting, diarrhea, constipation, melena, hematochezia GENITOURINARY: Absent: dysuria, frequency, urgency, hesitancy, hematuria, flank pain, genital pain MUSCULOSKELETAL: Absent: myalgia, arthralgia, joint swelling, back pain, neck pain SKIN: Absent: rash, itching, pallor, right open foot wound HEMATOLOGIC/IMMUNOLOGIC: Absent: easy bleeding, easy bruising, lymphadenopathy, frequent infections ENDOCRINE: Absent: unexplained weight gain, unexplained weight loss, heat intolerance, cold intolerance NEUROLOGIC: Absent: headache, focal weakness or paresthesias, dizziness, unsteady gait, seizure, mental status changes, bladder or bowel incontinence PSYCHIATRIC: Absent: anxiety, depression, suicidal or homicidal ideation, hallucinations. PHYSICAL EXAMINATION Vital Signs - 24 hr 05/08/19 21:14 Temperature 98.3 F Pulse Rate 90 Respiratory 16 Rate Blood Pressure 170/97 O2 Sat by Pulse 98 Oximetry (%) GENERAL: awake alert fully oriented no acute distress HEAD: normal EARS, NOSE, THROAT: ears normal, nares patent NECK: normal LUNGS: breath sounds clear to auscultation bilaterally no wheezes no crackles no accessory muscle use HEART: regular rate and rhythm normal S1 and S2 ABDOMEN: soft nontender not distended normoactive bowel sounds MUSCULOSKELETAL: limited range of motion to RLE due to rt foot wound LOWER EXTREMITIES: warm to palpation right foot wound wrapped w/ kerlix - nonmalodorous no drainage NEUROLOGICAL: normal speech no neuro deficits PSYCHIATRIC: cooperative good eye contact appropriate mood and affect SKIN: warm dry normal turgor right foot ulcer Laboratory Results - last 24 hr 05/08/19 05/08/19 21:29 21:29 WBC 6.0 RBC 4.31 Hgb 12.7 Hct 38.9 MCV 90.2 MCH 29.4 MCHC 32.6 RDW 15.4 Plt Count 232 MPV 8.9 Absolute Neuts (auto) 3.8 Neutrophils % 63.0 Lymphocytes % 24.2 Monocytes % 9.7 Eosinophils % 2.0 Basophils % 1.1 Nucleated RBC % 0 Sodium 138 Potassium 4.0 Chloride 104 Carbon Dioxide 29 Anion Gap 5 L BUN 27.1 H Creatinine 1.4 H Est GFR (CKD-EPI)AfAm 65.55 Est GFR (CKD-EPI)NonAf 56.56 Random Glucose 108 H Calcium 9.2 Total Bilirubin 0.4 AST 20 ALT 28 Alkaline Phosphatase 82 Creatine Kinase 373 H Creatine Kinase Index 1.2 CK-MB (CK-2) 4.5 H Troponin I < 0.02 Total Protein 8.4 H Albumin 3.8 ASSESSMENT/PLAN: Mr. Reyes is a 53 year old male with a past medical history significant for hypertension, hyperlipidemia, diabetes mellitus, renal insufficiency ( creatinine range 0.9-1.5), venous insufficiency and peripheral neuropathy who presented with symptoms of dizziness and evaluation of right foot wound which has opened up again 2-3 weeks ago. He was found to have an ? infected open right foot wound and acute renal insufficiency. He is being admitted to Medicine for further evaluation of dizziness and treatment of right open diabetic foot wound. #1 ? Infected Right Foot Wound Workup resulted w/ a normal WBC and differential, currently afebrile, received a dose of IV Vancomycin and meropenam --Check right foot xray --Wound culture pending, prior cultures + staph, pseudomonas, morganella --Infectious Diseases- Dr. Holden consulted for IV antibiotic recommendations --Dressing changes with saline wash and clean dry dressing BID --Wound Care- Dr. Ulloa consulted #2 Dizziness Currently asymptomatic, BP elevated on admission, creatinine 1.4 which is at his baseline --Continue IVF NS @75cc/hr --Check echocardiogram --Check carotid doppler --Check orthostatic VS --Monitor on telemetry --Consider Neurology and Cardiology consultation in am #3 Renal Insufficiency Creatinine 1.4, reports drinking an adequate amount of fluids, creatinine ranges between 0.9-1.5,may be related to diabetic nephropathy --Continue IVF NS @75cc/hr #4 Hypertension SBP in the 170's, has hx of noncompliance to medications --Continue w/ metoprolol succinate 25mg once daily, enalapriil 20mg once daily and lasix 40mg once daily #5 Hyperlipidemia LFT's normal --Continue statin therapy #6 Diabetes Mellitus --BGM before meals and at bedtime --Metformin held, Insulin as per sliding scale --Check hgba1c --Continue with statin therapy DVT Prophylaxsis lovenox SCD's FEN IVF NS@75cc/hr monitor electrolytes closely low sodium ADA diet Visit type - Emergency Visit Emergency Visit: Yes ED Registration Date: 05/08/19 Care time: The patient presented to the Emergency Department on the above date and was hospitalized for further evaluation of their emergent condition. - New Patient This patient is new to me today: Yes Date on this admission: 05/09/19 - Critical Care Critical Care patient: No
[2019-05-09] MEDS ORDERED: PATIENT'S OWN MEDICATION (NON-FORMULARY) (Benzonatate 100 MG) PO SCH (06:00)
[2019-05-09 06:23] LABS: HEMATOCRIT 34.5 % (35.4-49); HEMOGLOBIN 11.3 GM/dL (11.7-16.9); MCH 29.4 pg (25.7-33.7); MCHC 32.7 g/dl (32.0-35.9); MEAN PLT VOLUME 8.7 fl (7.5-11.1); PLATELET COUNT 202 K/MM3 (134-434); RBC 3.83 M/mm3 (4.00-5.60); RDW 15.5 % (11.9-15.9); WHITE BLOOD COUNT 4.5 K/mm3 (4.0-10.0)
[2019-05-09 06:49] LABS: BLOOD UREA NITROGEN 21.5 mg/dL (7-18); CALCIUM 8.9 mg/dL (8.5-10.1); CREATININE 1.2 mg/dL (0.55-1.3); POTASSIUM 4.1 mmol/L (3.5-5.1)
[2019-05-09] MEDS: INSULIN SLIDING SCALE (NOVOLOG) 1 VIAL SQ SCH ×2 (07:37→16:39)
[2019-05-09] MEDS ORDERED: VANCOMYCIN 1 GRAM (PRE-DOCKED) 1,000 MG/250 ML BAG IVPB ONE ×2 (09:06→10:00)
[2019-05-09] MEDS: ENALAPRIL MALEATE 10 MG TABLET (FP) PO SCH (10:00)
[2019-05-09] MEDS: ZINC SULFATE 220 MG CAPSULE (FP) PO SCH ×2 (10:00→22:59)
[2019-05-09] MEDS: OXYBUTYNIN CHLORIDE 5 MG TABLET PO SCH (10:00)
[2019-05-09] MEDS ORDERED: VANCOMYCIN 1 GM in D5W (PRE-DOCKED) 1,000 MG/250 ML IVPB SCH (10:00)
[2019-05-09] MEDS: ASCORBIC ACID 500 MG TABLET (FP) PO SCH (10:00)
[2019-05-09] MEDS: ENOXAPARIN NA (PORCINE) 40 MG/0.4 ML DISP.SYRIN SQ SCH (10:00)
[2019-05-09] MEDS: FUROSEMIDE 40 MG TABLET (FP) PO SCH (10:00)
[2019-05-09] MEDS: metoPROLOL SUCCINATE 25 MG TAB.SR.24H (FP) PO SCH ×2 (10:00→21:46)
--- NOTE | 2019-05-09 11:29 | ECHO ---
Name: FIFI RICHARDSON Exam:Adult Echocardiogram Study Date: 05/09/2019 09:14 AM Age: 53 yrs Reason For Study: DIZZINESS Height: 79 in Weight: 300 lb BSA: 2.7 m2 MMode/2D Measurements & Calculations RVDd: 4.0 cm Ao root diam: 4.3 cm IVSd: 1.2 cm LA dimension: 4.9 cm LVIDd: 6.0 cm ACS: 2.1 cm LVIDs: 4.1 cm LVPWd: 1.2 cm EDV(Teich): 178.6 ml LVOT diam: 2.7 cm ESV(Teich): 72.9 ml LAV (MOD-bp): 122.0 ml TAPSE: 2.2 cm Doppler Measurements & Calculations MV E max prasad: 113.5 cm/sec Ao V2 max: 133.0 cm/sec MV A max prasad: 94.4 cm/sec Ao max P.1 mmHg MV E/A: 1.2 Ao V2 mean: 86.7 cm/sec MV dec time: 0.21 sec Ao mean P.6 mmHg Ao V2 VTI: 28.1 cm DOMINIK(I,D): 5.0 cm2 DOMINIK(V,D): 5.1 cm2 LV V1 max P.7 mmHg SV(LVOT): 140.7 ml LV V1 mean P.7 mmHg LV V1 max: 119.0 cm/sec LV V1 mean: 76.0 cm/sec LV V1 VTI: 24.6 cm TR max prasad: 154.7 cm/sec PA V2 max: 92.3 cm/sec TR max P.6 mmHg PA max P.4 mmHg Med Peak E' Prasad: 5.0 cm/sec Med E/e': 22.8 Lat Peak E' Prasad: 10.9 cm/sec Lat E/e': 10.4 Procedure The study was technically difficult with many images being suboptimal in quality. Left Ventricle Ejection Fraction = 50%. Regional wall motion abnormalities cannot be excluded due to limited visuali zation. Right Ventricle The right ventricle is normal in size and function. Atria The left atrium is mildly dilated. Mitral Valve There is mild to moderate mitral annular calcification. There is no mitral valve stenosis. There is t race to mild mitral regurgitation. Tricuspid Valve The tricuspid valve is normal in structure and function. There is mild tricuspid regurgitation. Right ventricular systolic pressure is normal. Aortic Valve The aortic valve opens well. No hemodynamically significant valvular aortic stenosis. Pulmonic Valve The pulmonic valve is not well seen, but is grossly normal. There is no pulmonic valvular stenosis. Great Vessels Moderately dilated ascending aorta. Pericardium/Pleura There is no pericardial effusion. Interpretation Summary The study was technically difficult with many images being suboptimal in quality. Ejection Fraction = 50%. The right ventricle is normal in size and function. The left atrium is mildly dilated. There is mild to moderate mitral annular calcification. There is mild tricuspid regurgitation. Right ventricular systolic pressure is normal. Moderately dilated ascending aorta. There is no pericardial effusion. MD Rios *Juan José 05/09/2019 11:29 AM
--- NOTE | 2019-05-09 11:49 | CONSULT ---
- Consultation REQUESTING PROVIDER: Vascular Surgery / Wound Care - Ankit Ulloa CONSULT REQUEST: We have been asked to surgically evaluate this patient for ( specify). PCP: Alexus Martin HPI: Called to michelle 53 yo male w/ PMHx as noted below. Followed in [facility] for his chronic DM foot ulcer. Patient states that his wound had completely healed and and re-opened about 3 weeks ago. He was followed by GAYLE Gunderson in the [facility]. However, during his last visit 01/16/19 (note reviewed), patient is not getting proper shoe gear after giving him prescription and re-iterating the need for them. Did not receive his shoes yet. Dr. Galeano stated that he can no longer treat him due to his past non-compliance and current non-compliance issues. Denies n/v/f/c. Denies any purulent exudate/drainage from wound. Denies any skin temperature changes surrounding ulcer on foot. PMHx: DM, HTN, HLD, Renal Insufficiency, Chronic right foot ulcer/OM (PICC), Peripheral Neuropathy. PSHx: Home Meds Enalapril Maleate [Vasotec -] 20 mg PO DAILY #0 tablet 02/15/13 Ascorbic Acid [Vitamin C -] 500 mg PO DAILY #60 tablet 10/31/18 Atorvastatin Ca [Lipitor] 10 mg PO HS #60 tablet 10/31/18 Furosemide [Lasix -] 40 mg PO DAILY #30 tablet 10/31/18 Metoprolol Succinate [Toprol XL -] 25 mg PO BID #60 tab.sr.24h 10/31/18 Oxybutynin Chloride [Ditropan -] 5 mg PO DAILY #30 tablet 10/31/18 Sennosides [Senna -] 2 tab PO HS #60 tablet 10/31/18 Zinc Sulfate [Orazinc -] 220 mg PO BID #60 capsule 10/31/18 Metformin HCl [Glucophage] 500 mg PO BID 11/07/18 Azithromycin [Zithromax 250mg Tablets -] 250 mg PO UTDICT #6 tab 01/21/19 Benzonatate [Tessalon Pearls -] 100 mg PO TID #21 capsule 01/21/19 Allergies: fish derived, iodine, shellfish derived ROS: Gen: Absent: fever, chills, diaphoresis, generalized weakness, malaise, loss of appetite, weight change HEENT: Absent: rhinorrhea, nasal congestion, throat pain, throat swelling, difficulty swallowing, mouth swelling, ear pain, eye pain, visual changes CARDIOVASCULAR: Absent: chest pain, syncope, palpitations, irregular heart rate , lightheadedness, peripheral edema + dizziness RESPIRATORY: Absent: cough, shortness of breath, dyspnea with exertion, orthopnea, wheezing, stridor, hemoptysis GASTROINTESTINAL:Absent: abdominal pain, abdominal distension, nausea, vomiting , diarrhea, constipation, melena, hematochezia GENITOURINARY: Absent: dysuria, frequency, urgency, hesitancy, hematuria, flank pain, genital pain MUSCULOSKELETAL: Absent: myalgia, arthralgia, joint swelling, back pain, neck pain SKIN: Absent: rash, itching, pallor, right open foot wound HEMATOLOGIC/IMMUNOLOGIC: Absent: easy bleeding, easy bruising, lymphadenopathy, frequent infections ENDOCRINE:Absent: unexplained weight gain, unexplained weight loss, heat intolerance, cold intolerance NEUROLOGIC: Absent: headache, focal weakness or paresthesias, dizziness, unsteady gait, seizure, mental status changes, bladder or bowel incontinence PSYCHIATRIC: Absent: anxiety, depression, suicidal or homicidal ideation, hallucinations. PE: Constitutional: A&O. NAD Head: NC. AT. Eyes: PERRL. EOMI. Neck: Supple. Full ROM. No lymphadenopathy. Cardiovascular: RRR Pulmonary: CTA. Spo2 100% on RA Abdominal: Morbidly obese. Musculoskeletal: Chronic LE venous stasis changes b/l. Grade 2 ulcer to plantar aspect ~ 5 cm under the 3rd, 4th, and 5th MTs. No drainage. No edema. No calf tenderness. DP & PT pulses 2+ bilateral Neurological: Cranial nerves II-XII are grossly intact. Normal speech. Strength is grossly symmetric. No sensory deficits. Psychiatric: Good eye contact. Normal interaction, affect and behavior. Last Vital Signs Temp Pulse Resp BP Pulse Ox 98.0 F 69 20 103/67 100 05/09/19 01:01 05/09/19 06:59 05/09/19 06:59 05/09/19 06:59 05/09/19 06:59 CBC, BMP 05/09/19 05:20 05/09/19 05:20 Problem List - Problems (1) Plantar ulcer of right foot Assessment/Plan: f/u Wound culture (prior cultures + staph, pseudomonas, morganella) f/u ID/Dr. Holden IV antibiotic recommendations Wash feet daily with warm soapy water. Dry dressind BID Recommend Orthotic shoes as previously prescribed Podiatry Consult Tight glycemic control Keep foot elevated while in bed or seated in chair f/u in [facility] for routine follow-up Cont care per primary team On behalf of Dr. Ulloa, thank you for the opportunity to participate in your patient's care. Code(s): L97.519 - NON-PRS CHRONIC ULCER OTH PRT RIGHT FOOT W UNSP SEVERITY Qualifiers: Non-pressure ulcer stage: limited to breakdown of skin Qualified Code(s): L97.511 - Non-pressure chronic ulcer of other part of right foot limited to breakdown of skin (2) Type 2 diabetes mellitus with foot ulcer Code(s): E11.621 - TYPE 2 DIABETES MELLITUS WITH FOOT ULCER; L97.509 - NON- PRESSURE CHRONIC ULCER OTH PRT UNSP FOOT W UNSP SEVERITY (3) HTN (hypertension) Code(s): I10 - ESSENTIAL (PRIMARY) HYPERTENSION (4) Hyperlipidemia LDL goal <100 Code(s): E78.5 - HYPERLIPIDEMIA, UNSPECIFIED (5) Obesity Code(s): E66.9 - OBESITY, UNSPECIFIED (6) Renal insufficiency Code(s): N28.9 - DISORDER OF KIDNEY AND URETER, UNSPECIFIED Visit type - Case Type Case Type: ED Admission - Emergency Emergency Visit: Yes ED Registration Date: 05/08/19 Care time: The patient presented to the Emergency Department on the above date and was hospitalized for further evaluation of their emergent condition. - New patient This patient is new to me today: Yes Date on this admission: 05/09/19
--- NOTE | 2019-05-09 12:52 | PN ---
Progress Note, Physician History of Present Illness: Pt seen/ examined. chart is reviewed Awake/ comfortable wants to go home denies cp/sob/abd pain denies headache/ dizziness - Current Medication List Current Medications: Active Medications Ascorbic Acid (Vitamin C -) 500 mg PO DAILY [facility] Last Admin: 05/09/19 10:00 Dose: 500 mg Atorvastatin Calcium (Lipitor -) 10 mg PO HS [facility] Enalapril Maleate (Vasotec -) 20 mg PO DAILY [facility] Last Admin: 05/09/19 10:00 Dose: 20 mg Enoxaparin Sodium (Lovenox -) 40 mg SQ DAILY [facility] Last Admin: 05/09/19 10:00 Dose: 40 mg Furosemide (Lasix -) 40 mg PO DAILY [facility] Last Admin: 05/09/19 10:00 Dose: 40 mg Sodium Chloride (Normal Saline -) 1,000 mls @ 75 mls/hr IV ASDIR [facility] Last Admin: 05/09/19 02:00 Dose: 75 mls/hr Insulin Aspart (Novolog Vial Sliding Scale -) 1 [facility]Q [facility]; Protocol Last Admin: 05/09/19 07:37 Dose: Not Given Metoprolol Succinate (Toprol Xl -) 25 mg PO BID [facility] Last Admin: 05/09/19 10:00 Dose: 25 mg Non-Formulary Medication (Benzonatate) 100 mg PO TID [facility] Oxybutynin Chloride (Ditropan -) 5 mg PO DAILY [facility] Last Admin: 05/09/19 10:00 Dose: 5 mg Senna (Senna -) 2 tab PO HS [facility] Vancomycin HCl (Vancomycin (Pre-Docked)) 1,000 mg IVPB DAILY [facility]; Protocol Zinc Sulfate (Orazinc -) 220 mg PO BID [facility] Last Admin: 05/09/19 10:00 Dose: 220 mg - Objective Vital Signs: Vital Signs Temperature 98.9 F 05/09/19 11:30 Pulse Rate 64 05/09/19 11:30 Respiratory Rate 18 05/09/19 11:30 Blood Pressure 131/75 05/09/19 11:30 O2 Sat by Pulse Oximetry (%) 99 05/09/19 11:30 Constitutional: Yes: No Distress, Calm, Obese Eyes: Yes: Conjunctiva Clear Neck: Yes: Supple Cardiovascular: Yes: Regular Rate and Rhythm Respiratory: Yes: CTA Bilaterally Gastrointestinal: Yes: Soft, Abdomen, Obese Wound/Incision: Yes: Dressing Dry and Intact Neurological: Yes: WNL, Cran Nerves II-XII Intact ...Motor Strength: WNL Labs: CBC, BMP 05/09/19 05:20 05/09/19 05:20 Problem List - Problems (1) Diabetic foot ulcer Code(s): E11.621 - TYPE 2 DIABETES MELLITUS WITH FOOT ULCER; L97.509 - NON- PRESSURE CHRONIC ULCER OTH PRT UNSP FOOT W UNSP SEVERITY Qualifiers: Diabetic foot ulcer location: midfoot Diabetes mellitus type: type 2 Laterality: right Non-pressure ulcer stage: unspecified non-pressure ulcer stage Qualified Code(s): E11.621 - Type 2 diabetes mellitus with foot ulcer; L97.419 - Non-pressure chronic ulcer of right heel and midfoot with unspecified severity (2) Dizziness Code(s): R42 - DIZZINESS AND GIDDINESS (3) HTN (hypertension) Code(s): I10 - ESSENTIAL (PRIMARY) HYPERTENSION (4) Obesity Code(s): E66.9 - OBESITY, UNSPECIFIED Assessment/Plan Clinically stable discussed in detail exam benign w/c and i/d to follow abx strongly advised to follow in office on regular basis will follow'
[2019-05-09 12:59] VITALS: BMI 46.6
--- NOTE | 2019-05-09 14:06 | PN ---
Progress Note (short form) - Note Progress Note: ID consult dictated admitted with dizziness yesterday no fevers, plantar foot wound for last one month was treated in October-November for presumed osteomyelitis -zosyn then augmentin wound healed was wearing ill fitting shoes- ulcer recureed a month ago per patient no drainage noted in ER note wbc is normal xray of foot unchanged from October 2018- no bony destruction diabetic foot ulcer- 3 by 3 cm plantar ulcer- clean- no purulence or surrounding erythema, no exposed bone- doesnot probe to bone no signs infection-no need for iv antibiotics called fabricio at wound care- have asked patient to call and set up appt for next week-he has an appt with dr monk for Sunday will need wound care supplies prior to discharge until he is seen in wound care local care per surgery evaluation of dizziness per PMD Problem List - Problems (1) Type 2 diabetes mellitus with foot ulcer Code(s): E11.621 - TYPE 2 DIABETES MELLITUS WITH FOOT ULCER; L97.509 - NON- PRESSURE CHRONIC ULCER OTH PRT UNSP FOOT W UNSP SEVERITY (2) Dizziness Code(s): R42 - DIZZINESS AND GIDDINESS
--- NOTE | 2019-05-09 15:06 | EKG ---
Test Reason : Blood Pressure : / mmHG Vent. Rate : 077 BPM Atrial Rate : 077 BPM P-R Int : 150 ms QRS Dur : 086 ms QT Int : 372 ms P-R-T Axes : 048 -25 028 degrees QTc Int : 420 ms NORMAL SINUS RHYTHM NORMAL ECG WHEN COMPARED WITH ECG OF 24-OCT-2018 17:22, QRS AXIS SHIFTED LEFT Confirmed by GRACIELA REHMAN MD ([id number]) on 05/09/2019 3:06:26 PM Referred By: Confirmed By:GRACIELA REHMAN MD
--- NOTE | 2019-05-09 18:34 | CONS ---
INFECTIOUS DISEASE CONSULTATION DATE OF CONSULTATION: DATE OF DICTATION: 05/09/2019 HISTORY: This is a 53-year-old man who I have seen before on prior admissions. He has a history of recurrent diabetic foot infections. He was last in the hospital in October from the to the with a plantar ulcer of his right foot. He had a polymicrobial culture including Staph aureus and was discharged on piperacillin/tazobactam, which he completed via PICC line with follow up Augmentin. He reports the ulcer healed. He was coming to wound care. About a month ago, he apparently was wearing ill fitting shoes. He had a lapse in his insurance. He was not able to get the shoes that were prescribed. He developed another plantar ulcer, which he has been trying to keep clean. He denies any fevers or chills. He presented to the ER yesterday because he felt dizzy and like he was going to pass out. PAST MEDICAL HISTORY: Notable for hypertension, hyperlipidemia, diabetes, venous insufficiency, peripheral neuropathy. He has morbid obesity. He has recurrent diabetic foot ulcers. He has been treated several times for presumptive osteomyelitis. He has had CAT scan of his feet, but he has been too large to have an MRI in the past. ALLERGIES: FISH-DERIVED PRODUCTS, IODINE, and SHELLFISH. MEDICATIONS: At home include enalapril, vitamin C, atorvastatin, Lasix, Toprol XL, Ditropan, senna, zinc, Glucophage. SOCIAL HISTORY: His PCP is Dr. Henao and Dr. Martin. He is a former smoker. Drinks beer occasionally. 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 REVIEW OF SYSTEMS: He denies fevers and chills. He denies nausea, vomiting and reports his dizziness has resolved and that his sugars have been well controlled at home. PHYSICAL EXAMINATION: General: He is an obese man in no acute distress. Vital Signs: He weighs 183 kg. HEENT: He is normocephalic. His eyes are anicteric. Neck: Supple. Lungs: Clear to auscultation. Heart: Regular rate and rhythm. Abdomen: Protuberant. I cannot palpate any organomegaly. Extremities: He has bilateral chronic venostasis changes. He has scaly skin that is peeling. He has very poor hygiene. He has about a 3 x 3-cm very clean stage 2 ulcer on the plantar aspect of his right foot. There is no drainage. There is no edema. There is no surrounding cellulitis. It is not foul smelling. Apparently, it was cleaned in the emergency room as well. DIAGNOSTIC DATA: His labs are notable for a white count of 4.5, hemoglobin 11.3. His chemistries; BUN 21, creatinine 1.2, his glucose is 145. LFTs are normal. He received vancomycin and meropenem in the ER. In summary, this is a 53-year-old man admitted with dizziness. He has no fevers or chills. The ulcer is clean with no signs of infection. He has a diabetic foot ulcer. There is no need for any antibiotic treatment at this time. [facility]. The patient has an appointment now with Dr. Ulloa for Sunday. He will need wound care supplies prior to discharge, local care per surgery, and evaluation of dizziness per the primary service. RYLEY VIGIL M.D. [id number]
[2019-05-09] MEDS ORDERED: SENNOSIDES 8.6MG TABLET (FP) PO SCH (22:00)
[2019-05-09] MEDS ORDERED: ATORVASTATIN CA 10 MG TABLET (FP) PO SCH (22:00)
[2019-05-10] MEDS: INSULIN SLIDING SCALE (NOVOLOG) 1 VIAL SQ SCH (07:16)
[2019-05-10] MEDS: metoPROLOL SUCCINATE 25 MG TAB.SR.24H (FP) PO SCH (09:28)
[2019-05-10] MEDS: ENOXAPARIN NA (PORCINE) 40 MG/0.4 ML DISP.SYRIN SQ SCH (09:28)
[2019-05-10] MEDS: FUROSEMIDE 40 MG TABLET (FP) PO SCH (09:28)
[2019-05-10] MEDS: ENALAPRIL MALEATE 10 MG TABLET (FP) PO SCH (09:28)
[2019-05-10] MEDS: ASCORBIC ACID 500 MG TABLET (FP) PO SCH (09:28)
[2019-05-10] MEDS: ZINC SULFATE 220 MG CAPSULE (FP) PO SCH (09:28)
[2019-05-10] MEDS: OXYBUTYNIN CHLORIDE 5 MG TABLET PO SCH (09:29)
[2019-05-10 11:36] VITALS: BP 100/64; PULSE 74; TEMP 98
--- NOTE | 2019-05-10 12:35 | DS ---
Physical Examination Vital Signs: Vital Signs Temperature 98.0 F 05/10/19 11:00 Pulse Rate 74 05/10/19 11:00 Respiratory Rate 20 05/10/19 11:00 Blood Pressure 100/64 05/10/19 11:00 O2 Sat by Pulse Oximetry (%) 95 05/10/19 11:00 Constitutional: Yes: No Distress, Calm Cardiovascular: Yes: Regular Rate and Rhythm Respiratory: Yes: CTA Bilaterally Gastrointestinal: Yes: Normal Bowel Sounds, Soft, Abdomen, Obese. No: Tenderness Extremities: Yes: Other (right foot -- wound is dry - no drainage) Edema: Yes Edema: LLE: Trace, RLE: Trace Labs: CBC, BMP 05/09/19 05:20 05/09/19 05:20 Discharge Summary Problems reviewed: Yes Reason For Visit: TYPE 2 DIABETES MELLITUS WITH FOOT ULCER Current Active Problems Dizziness (Acute) Type 2 diabetes mellitus with foot ulcer (Acute) Wound of right foot (Acute) Health Concerns: HISTORY OF PRESENT ILLNESS: 53 year old male with a past medical history significant for hypertension, hyperlipidemia, diabetes mellitus,and venous insufficiency/peripheral neuropathy who presented for evaluation of right foot wound and symptoms of dizziness. He follows with wound care and podiatry for his right foot wound which has opened again 2-3 weeks ago. He denied fever, chills, nausea, vomiting , odor, pus or erythema to his wound. He has a history of noncompliance to medications. He denied chest pain, shortness of breath, blurry vision, syncopy. He reports drinking an adequate amount of water. 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 but noted a thyroid nodule Echo-- normal LV function but shows a moderaltly dilated ascending aorta Pt will be dc home -- follow up with wound care on Sunday -- he made appt for the coming SundayMay 16 He is allergic to iv contrast - also needs open MRA Pt agreed to see me in the office May 16 - will arrange to MRA chest, thyroid sono for thyroid nodule stable for dc home Condition: Fair - Instructions Diet, Activity, Other Instructions: Pt will be dc home -- follow up with wound care on Sunday -- he made appt for the coming SundayMay 16 He is allergic to iv contrast - also needs open MRA Pt agreed to see me in the office May 16 - will arrange to MRA chest, thyroid sono for thyroid nodule stable for dc home Referrals: Aleuxs Martin MD [Primary Care Provider] - Disposition: HOME - Home Medications Comprehensive Discharge Medication List: Ambulatory Orders Enalapril Maleate [Vasotec -] 20 mg PO DAILY #0 tablet 02/15/13 Ascorbic Acid [Vitamin C -] 500 mg PO DAILY #60 tablet 10/31/18 Atorvastatin Ca [Lipitor] 10 mg PO HS #60 tablet 10/31/18 Furosemide [Lasix -] 40 mg PO DAILY #30 tablet 10/31/18 Metoprolol Succinate [Toprol XL -] 25 mg PO BID #60 tab.sr.24h 10/31/18 Oxybutynin Chloride [Ditropan -] 5 mg PO DAILY #30 tablet 10/31/18 Sennosides [Senna -] 2 tab PO HS #60 tablet 10/31/18 Zinc Sulfate [Orazinc -] 220 mg PO BID #60 capsule 10/31/18 Metformin HCl [Glucophage] 500 mg PO BID 11/07/18 Azithromycin [Zithromax 250mg Tablets -] 250 mg PO UTDICT #6 tab 01/21/19 Benzonatate [Tessalon Pearls -] 100 mg PO TID #21 capsule 01/21/19
== END 2019-05-10 14:37 | disposition home or self-care (01) | DRG 380 ==
LOC: JER 21:07 → JERBED 23:31 → J6S 05-09 12:12
PROVIDERS: ADMIT Internal Medicine; ATTEND Internal Medicine
DX: E11.621 Type 2 diabetes mellitus with foot ulcer (principal); L97.518 Non-pressure chronic ulcer of other part of right foot with other specified severity; I10 Essential (primary) hypertension; E78.5 Hyperlipidemia, unspecified; E11.42 Type 2 diabetes mellitus with diabetic polyneuropathy; N28.9 Disorder of kidney and ureter, unspecified; E11.51 Type 2 diabetes mellitus with diabetic peripheral angiopathy without gangrene; R42 Dizziness and giddiness; E66.01 Morbid (severe) obesity due to excess calories; Z68.42 Body mass index [BMI] 45.0-49.9, adult; E04.1 Nontoxic single thyroid nodule
CPT/HCPCS: 36415; 71046-TC-FY; 73630-TC-RT-FY; 80048; 80053; 82550; 82553; 82962; 83036; 84443; 84484; 85025; 85027; 87070; 87186; 87205; 93005; 93010; 93306-TC; 93880-TC; 99285-25; J7030

== ENCOUNTER 2019-06-06 10:37 | Emergency (ER) | payer BC, OTHER ==
[2019-06-06 10:50] VITALS: BP 133/62; PULSE 77; TEMP 98.1; BMI 34.6
[2019-06-06 11:22] LABS: EPI CELLS 1.1 /HPF (0-5/HPF); HYALINE CASTS 0 /lpf (0-8); PH,URINE 5.5 (5.0-8.0); URINE APPEARANCE CLOUDY; URINE BACTERIA 655.6 /hpf (NEGATIVE); URINE BILIRUBIN NEGATIVE (NEGATIVE); URINE COLOR YELLOW; URINE GLUCOSE (UA) NEGATIVE (NEGATIVE); URINE KETONE NEGATIVE (NEGATIVE); URINE LEUK ESTERASE 2+ (NEGATIVE); URINE NITRITE NEGATIVE (NEGATIVE); URINE PROTEIN 2+ (NEGATIVE); URINE RBC 6 /hpf (0-4); URINE UROBILINOGEN 0.2 mg/dL (0.2-1.0); URINE WBC 368 /hpf (0-5)
--- NOTE | 2019-06-06 11:56 | PDOC ---
*Physical Exam - Vital Signs Last Vital Signs Temp Pulse Resp BP Pulse Ox 98.1 F 77 20 133/62 98 06/06/19 10:48 06/06/19 10:48 06/06/19 10:48 06/06/19 10:48 06/06/19 10:48 ED Treatment Course - ADDITIONAL ORDERS Additional order review: Laboratory Results 06/06/19 10:00 Urine Color Yellow Urine Appearance Cloudy Urine pH 5.5 Ur Specific [place] 1.021 Urine Protein 2+ H Urine Glucose (UA) Negative Urine Ketones Negative Urine Blood Trace Urine Nitrite Negative Urine Bilirubin Negative Urine Urobilinogen 0.2 Ur Leukocyte Esterase 2+ H Urine WBC (Auto) 368 Urine RBC (Auto) 6 Urine Casts (Auto) 0 U Epithel Cells (Auto) 1.1 Urine Bacteria (Auto) 655.6 Medical Decision Making - Medical Decision Making 06/06/19 12:10 2 day h/o dysuria + lower back pain Discharge - Discharge Information Clinical Impression/Diagnosis: Dysuria, UTI (urinary tract infection) Condition: Stable Disposition: HOME - Follow up/Referral Referrals: Alexus Martin MD [Primary Care Provider] - - Patient Discharge Instructions Patient Printed Discharge Instructions: DI for Urinary Tract Infection (UTI) - Post Discharge Activity
--- NOTE | 2019-06-06 12:08 | PDOC ---
History of Present Illness - General Chief Complaint: Urinary Problem Stated Complaint: UTI Time Seen by Provider: 06/06/19 11:39 History Source: Patient, Primary Care Provider Exam Limitations: No Limitations - History of Present Illness Initial Comments: 06/06/19 12:07 Aneudy Reyes is a 53M with PMH HTN, HLD, NIDDM, chronic [facility] presenting with dysuria. Patient reports that for the last 2 days has had burning pain at the end of urination. Denies any hematuria, penile discharge, abdominal pain, fever, chills , nausea, vomiting, constipation, diarrhea. Pain only occurs at the end of urination, no pain at rest. Has never had this pain before. last sexual activity with known female partner with condom one week ago, no concern for STI per patient, has been tested in the past. 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 Denies any incontinence or retention, numbness/tingling of lower extremities. Allergies to fish/shellfish. PMD Alexus Martin Past History - Past Medical History Allergies/Adverse Reactions: Allergies Allergy/AdvReac Type Severity Reaction Status Date / Time fish derived Allergy Verified 06/06/19 10:46 iodine Allergy Verified 06/06/19 10:46 shellfish derived Allergy Difficulty Verified 06/06/19 10:46 Breathing Home Medications: Ambulatory Orders Enalapril Maleate [Vasotec -] 20 mg PO DAILY #0 tablet 02/15/13 Ascorbic Acid [Vitamin C -] 500 mg PO DAILY #60 tablet 10/31/18 Atorvastatin Ca [Lipitor] 10 mg PO HS #60 tablet 10/31/18 Furosemide [Lasix -] 40 mg PO DAILY #30 tablet 10/31/18 Oxybutynin Chloride [Ditropan -] 5 mg PO DAILY #30 tablet 10/31/18 Sennosides [Senna -] 2 tab PO HS #60 tablet 10/31/18 Zinc Sulfate [Orazinc -] 220 mg PO BID #60 capsule 05/10/19 Amlodipine Besylate [Norvasc -] 10 mg PO DAILY 06/06/19 Cephalexin Monohydrate [Keflex -] 500 mg PO BID 7 Days #14 capsule 06/06/19 Cephalexin Monohydrate [Keflex -] 500 mg PO BID 7 Days #14 capsule 06/06/19 Ferrous Sulfate [Feosol] 1 tab PO DAILY 06/06/19 Glyburide/Metformin HCl [Glyburide-Metformin 2.5-500 mg] 1 each PO BID 06/06/19 Metoprolol Tartrate [Lopressor -] 25 mg PO BID 06/06/19 Anemia: No Asthma: No Cancer: No Cardiac Disorders: No CVA: No COPD: No CHF: No DVT: No Dementia: No Diabetes: Yes (NIDDM) GI Disorders: Yes (PANCREATITIS) Disorders: No HTN: Yes Hypercholesterolemia: Yes Liver Disease: No Seizures: No Thyroid Disease: No - Surgical History Abdominal Surgery: No Appendectomy: No Cardiac Surgery: No Cholecystectomy: No Lung Surgery: No Neurologic Surgery: No Orthopedic Surgery: Yes (BILATERAL SHOULDER SURGERY) - Immunization History Immunization Up to Date: Yes - Psycho Social/Smoking Cessation Hx Smoking Status: Yes Smoking History: Unknown if ever smoked Have you smoked in the past 12 months: No Number of Cigarettes Smoked Daily: 0 If you are a former smoker, when did you quit?: 2004 Hx Alcohol Use: No Drug/Substance Use Hx: No Substance Use Type: Alcohol Hx Substance Use Treatment: No Review of Systems - Review of Systems Able to Perform ROS?: Yes Constitutional: No: Chills, Fever, Weakness HEENTM: No: Blurred Vision, Nose Congestion, Hearing Loss, Throat Pain, Difficulty Swallowing Respiratory: No: Cough, Shortness of Breath Cardiac (ROS): No: Chest Pain, Edema, Lightheadedness, Palpitations ABD/GI: No: Constipated, Diarrhea, Nausea, Poor Appetite, Poor Fluid Intake, Vomiting : Yes: Burning, Dysuria. No: Discharge, Frequency, Flank Pain, Hematuria, Incontinence, Testicular Mass, Testicular Swelling Musculoskeletal: No: Symptoms Reported Integumentary: No: Lesions, Lumps, Pruritus, Rash Neurological: No: Headache, Numbness, Unsteady Gait, Dizziness Endocrine: No: Symptoms Reported Hematologic/Lymphatic: No: Symptoms Reported All Other Systems: Reviewed and Negative *Physical Exam - Vital Signs Last Vital Signs Temp Pulse Resp BP Pulse Ox 98.1 F 77 20 133/62 98 06/06/19 10:48 06/06/19 10:48 06/06/19 10:48 06/06/19 10:48 06/06/19 10:48 - Physical Exam General Appearance: Yes: Nourished, Appropriately Dressed, Obese. No: Apparent Distress HEENT: positive: EOMI, SUSI, Normal Voice, Symmetrical, Pharynx Normal, Hearing Grossly Normal. negative: Scleral Icterus (R), Scleral Icterus (L), Pharyngeal Erythema, Tonsillar Exudate, Tonsillar Erythema Neck: positive: Trachea midline, Normal Thyroid, Supple. negative: Tender, Rigid, Lymphadenopathy (R), Lymphadenopathy (L) Respiratory/Chest: positive: Lungs Clear. negative: Chest Tender, Normal Breath Sounds, Respiratory Distress, Accessory Muscle Use, Crackles, Rales, Rhonchi, Stridor, Wheezing Cardiovascular: positive: Regular Rhythm, Regular Rate Gastrointestinal/Abdominal: positive: Normal Bowel Sounds, Flat, Soft. negative : Tender (no suprapubic tenderness), Pulsatile Mass, Guarding, Rebound, Hernia, Mass Male Genitalia: positive: normal genitalia, normal prostate. negative: discharge, testicular tenderness, testicular mass, epididymus tender, CVAT, hematuria Rectal Exam: positive: normal exam, NL Prostate (non-tender) Musculoskeletal: positive: Normal Inspection. negative: CVA Tenderness, Vertebral Tenderness Extremity: positive: Normal Capillary Refill, Normal Inspection, Normal Range of Motion. negative: Tender, Pelvis Stable Integumentary: positive: Normal Color, Dry, Warm Neurologic: positive: Fully Oriented, Alert, Normal Mood/Affect, Normal Response ED Treatment Course - ADDITIONAL ORDERS Additional order review: Laboratory Results 06/06/19 10:00 Urine Color Yellow Urine Appearance Cloudy Urine pH 5.5 Ur Specific [place] 1.021 Urine Protein 2+ H Urine Glucose (UA) Negative Urine Ketones Negative Urine Blood Trace Urine Nitrite Negative Urine Bilirubin Negative Urine Urobilinogen 0.2 Ur Leukocyte Esterase 2+ H Urine WBC (Auto) 368 Urine RBC (Auto) 6 Urine Casts (Auto) 0 U Epithel Cells (Auto) 1.1 Urine Bacteria (Auto) 655.6 Medical Decision Making - Medical Decision Making 06/06/19 14:31 Patient is a 53M with PMH NIDDM, HTN, HLD presenting with dysuria consistent with UTI. Lower back pain is bilateral and lower lumbar, no CVA tenderness, no history of renal stones, no N/V or fever/tachycardia, pyelonephritis less likely. Exam shows no penile or scrotal tenderness, no discharge, no hernia. No prostate tenderness, making prostatitis less likely. No concerning sexual history. No anterior abdominal pain. UA reveals 680 bacteria with 2+ LE and no blood. Presentation consistent with cystitis. Dr. Alexus Martin called during examination to update patient of results regarding aneurysm, will give contact information for Dr. Hadley per PMD request. Giving 500mg Keflex in ED and sending home with 500mg BID for 7 days for UTI treatment. Stable for f/u with PMD. Discharge - Discharge Information Problems reviewed: Yes Clinical Impression/Diagnosis: Dysuria UTI (urinary tract infection) Qualifiers: Urinary tract infection type: acute cystitis Hematuria presence: without hematuria Qualified Code(s): N30.00 - Acute cystitis without hematuria Condition: Stable Disposition: HOME - Admission No - Additional Discharge Information Prescriptions: Cephalexin Monohydrate [Keflex -] 500 mg PO BID 7 Days #14 capsule Cephalexin Monohydrate [Keflex -] 500 mg PO BID 7 Days #14 capsule - Follow up/Referral Referrals: Alexus Martin MD [Primary Care Provider] - Alexis Hadley MD [Staff Physician] - Reagan George MD [Staff Physician] - - Patient Discharge Instructions Patient Printed Discharge Instructions: DI for Urinary Tract Infection (UTI) Additional Instructions: Today you were evaluated for burning with urination. Your labs show that you have an infection in your bladder. We are treating you with antibiotics, please take them as instructed. Please see Dr. Martin in the next few days for further care, and you should see a urologist in the next week for further evaluation. As discussed with Dr. Martin, please see Dr. Hadley for evaluation of your aneurysm. If you experience worsening pain, urinate blood, have lower back pain, nausea, vomiting, or any other new or concerning symptoms , please return to the emergency room. - Post Discharge Activity
[2019-06-06] MEDS ORDERED: CEPHALEXIN MONOHYDRATE 500 MG CAPSULE (UD) PO ONE (12:20)
[2019-06-06] MEDS ORDERED: CEPHALEXIN MONOHYDRATE 500 MG CAPSULE (UD) ONE (12:23)
--- NOTE | 2019-06-06 12:44 | PDOC ---
Documentation entered by Colby Fowler SCRIBE, acting as scribe for Kostas Mckeon MD. Kostas Mckeon MD: This documentation has been prepared by the Malcolm ruelas Xhesika, SCRIBE, under my direction and personally reviewed by me in its entirety. I confirm that the documentation accurately reflects all work, treatment, procedures, and medical decision making performed by me. Attending Attestation - Resident Resident Name: SamMarcos - ED Attending Attestation I have performed the following: I have examined & evaluated the patient, The case was reviewed & discussed with the resident, I agree w/resident's findings & plan, Exceptions are as noted - HPI HPI: 06/06/19 12:13 The patient is a 53 year old male, with a PMH of HTN, HLD, NIDDM, chronic R foot wound who presents to the ED for 2 days of dysuria. The patient notes he endorses back pain after urinating. Pt denies any history of STD/STI. Pt denies history of UTIs. The patient denies chest pain, shortness of breath, and dizziness. Denies fever , chills, cough, nausea, vomiting, and constipation. Denies frequency, urgency and hematuria. Allergy: iodine, fish derived, shellfish derived PCP: Alexus Paredes - Physicial Exam PE: 06/06/19 12:13 Vitals: Triage Vital signs reviewed General Appearance: no acute distress, well nourished well developed, Neck: Supple;No Nuchal rigidity Chest Wall: Nontender Cardiac: Regular rate and rhythm, no murmurs, no rubs, no gallops, Lungs: Clear to auscultation bilateral, good air movement bilaterally, Abdomen: Soft, nondistended, normal bowel sounds, nontender to palpation Rectal: normal rectal exam Extremities: Full range of motion to all extremities, no cyanosis, clubbing, or edema Skin: Warm and dry, no rashes or lesions, no petechiae Psych: normal mood, normal affect - Medical Decision Making 06/06/19 12:44 Well-appearing no apparent distress with UTI symptoms positive urinalysis no back pain prostate nontender not boggy We will treat with 1 week course of antibiotics he will follow-up with his doctor this week Findings, the need for follow-up and strict return instructions discussed with patient.
== END 2019-06-06 12:47 | disposition home or self-care (01) ==
LOC: JER 10:37
DX: R30.0 Dysuria (principal); N30.00 Acute cystitis without hematuria; Z91.013 Allergy to seafood; Z88.8 Allergy status to other drugs, medicaments and biological substances; I10 Essential (primary) hypertension; E78.5 Hyperlipidemia, unspecified
CPT/HCPCS: 81003; 87086; 87186; 99283-25

== ENCOUNTER → 2019-10-06 | Day surgery (SDC) | payer BC, OTHER | END | disposition home or self-care (01) | LOC: JRADIR 11:14 | PROVIDERS: ATTEND Surgery Vascular Surgery | PROC: 02HV33Z Insertion of Infusion Device into Superior Vena Cava, Percutaneous Approach (ICD-10-PCS; principal; 2019-10-06) | PROC: B518YZA Fluoroscopy of Superior Vena Cava using Other Contrast, Guidance (ICD-10-PCS; 2019-10-06) | DX: M86.9 Osteomyelitis, unspecified (principal); E13.22 Other specified diabetes mellitus with diabetic chronic kidney disease; N18.9 Chronic kidney disease, unspecified | CPT/HCPCS: 36558; 77001; C1751 ==

== ENCOUNTER → 2019-10-27 | Day surgery (SDC) | payer BC, OTHER | END | disposition home or self-care (01) | LOC: JRADIR 11:23 | PROVIDERS: ATTEND Internal Medicine | PROC: 02HV33Z Insertion of Infusion Device into Superior Vena Cava, Percutaneous Approach (ICD-10-PCS; principal; 2019-10-27) | PROC: B518ZZA Fluoroscopy of Superior Vena Cava, Guidance (ICD-10-PCS; 2019-10-27) | DX: E11.22 Type 2 diabetes mellitus with diabetic chronic kidney disease (principal); E11.69 Type 2 diabetes mellitus with other specified complication; M86.9 Osteomyelitis, unspecified | CPT/HCPCS: 36561; 77001; C1751; 36558 ==

== ENCOUNTER → 2019-11-19 | Day surgery (SDC) | payer BC, OTHER | END | disposition home or self-care (01) | LOC: JRADIR 09:05 | PROVIDERS: ATTEND Internal Medicine | PROC: 02PY33Z Removal of Infusion Device from Great Vessel, Percutaneous Approach (ICD-10-PCS; principal; 2019-11-19) | DX: Z45.2 Encounter for adjustment and management of vascular access device (principal) | CPT/HCPCS: 36589 ==

== ENCOUNTER 2019-12-15 13:01 | Emergency (ER) | payer BC, OTHER ==
--- NOTE | 2019-12-15 13:06 | PDOC ---
Rapid Medical Evaluation Time Seen by Provider: 12/15/19 13:02 Medical Evaluation: Allergies Allergy/AdvReac Type Severity Reaction Status Date / Time fish derived Allergy Verified 10/17/19 12:54 iodine Allergy Verified 10/17/19 12:54 shellfish derived Allergy Difficulty Verified 10/17/19 12:54 Breathing 12/15/19 13:02 I have performed a brief in-person evaluation of this patient. CC: dysuria PE: No focal findings Orders: urine Patient will proceed to ED for further evaluation. Discharge Disposition - Diagnosis Dysuria - Referrals - Patient Instructions - Post Discharge Activity
[2019-12-15 13:11] VITALS: BP 163/85; PULSE 75; TEMP 98.4; BMI 34.4
--- NOTE | 2019-12-15 13:31 | PDOC ---
History of Present Illness - General Chief Complaint: Urinary Problem Stated Complaint: UTI Time Seen by Provider: 12/15/19 13:02 History Source: Patient - History of Present Illness Timing/Duration: reports: constant Pain Radiation: denies: flank Past History - Medical History Allergies/Adverse Reactions: Allergies Allergy/AdvReac Type Severity Reaction Status Date / Time fish derived Allergy Verified 12/15/19 13:08 iodine Allergy Verified 12/15/19 13:08 shellfish derived Allergy Difficulty Verified 12/15/19 13:08 Breathing Home Medications: Ambulatory Orders Enalapril Maleate [Vasotec -] 20 mg PO DAILY #0 tablet 02/15/13 Ascorbic Acid [Vitamin C -] 500 mg PO DAILY #60 tablet 10/31/18 Furosemide [Lasix -] 40 mg PO DAILY #30 tablet 10/31/18 Oxybutynin Chloride [Ditropan -] 5 mg PO DAILY #30 tablet 10/31/18 Sennosides [Senna -] 2 tab PO HS #60 tablet 10/31/18 Zinc Sulfate [Orazinc -] 220 mg PO BID #60 capsule 05/10/19 Amlodipine Besylate [Norvasc -] 10 mg PO DAILY 06/06/19 Ferrous Sulfate [Feosol] 1 tab PO DAILY 06/06/19 Glyburide/Metformin HCl [Glyburide-Metformin 2.5-500 mg] 1 each PO BID 06/06/19 Metoprolol Tartrate [Lopressor -] 25 mg PO BID 06/06/19 Nitrofurantoin Monohyd/M-Cryst [Macrobid -] 100 mg PO BID #14 capsule 12/15/19 Anemia: No Asthma: No Cancer: No Cardiac Disorders: No CVA: No COPD: No CHF: No DVT: No Dementia: No Diabetes: Yes (NIDDM) GI Disorders: Yes (PANCREATITIS) Disorders: No HTN: Yes Hypercholesterolemia: Yes Liver Disease: No Seizures: No Thyroid Disease: No - Surgical History Abdominal Surgery: No Appendectomy: No Cardiac Surgery: No Cholecystectomy: No Lung Surgery: No Neurologic Surgery: No Orthopedic Surgery: Yes (BILATERAL SHOULDER SURGERY) - Immunization History Immunization Up to Date: Yes - Psycho-Social/Smoking History Smoking Status: Yes Smoking History: Unknown if ever smoked Have you smoked in the past 12 months: No Number of Cigarettes Smoked Daily: 0 If you are a former smoker, when did you quit?: 2004 - Substance Abuse Hx (Audit-C & DAST Scrn) How often the patient has a drink containing alcohol: Never Score: In Men: 4 or > Positive; In Women: 3 or > Positive: 0 Screen Result (Pos requires Nsg. Audit-10AR): Negative In the last yr the pt used illegal drug/Rx for NonMed reason: No Score: Yes response is considered Positive: 0 Screen Result (Positive result requires Nsg. DAST-10): Negative Abd/GI Specific PMHX - Complaint Specific PMHX Pancreatitis: Yes Review of Systems - Review of Systems Constitutional: No: Chills, Fever ABD/GI: No: Nausea, Vomiting, Abdominal cramping : Yes: Dysuria, Frequency. No: Discharge, Flank Pain, Hematuria *Physical Exam - Vital Signs Last Vital Signs Temp Pulse Resp BP Pulse Ox 98.4 F 75 18 163/85 99 12/15/19 13:06 12/15/19 13:06 12/15/19 13:12/15/19 13:12/15/19 13:06 - Physical Exam General Appearance: Yes: Appropriately Dressed. No: Apparent Distress HEENT: positive: Normal Voice Neck: positive: Supple Respiratory/Chest: negative: Respiratory Distress Gastrointestinal/Abdominal: positive: Normal Bowel Sounds, Soft. negative: Tender, Distended, Guarding, Rebound Musculoskeletal: negative: CVA Tenderness Integumentary: positive: Dry, Warm Neurologic: positive: Fully Oriented, Alert, Normal Mood/Affect Medical Decision Making - Medical Decision Making 12/15/19 13:29 54 yo morbidly obesed male HTN, HLD, DM, non-healing ulcer to R foot, ? recurrent UTIs, here w/ dysuria and urinary frequency x 5 days. No hematuria, flank pain, n/v/f/c. Sexually active "once in a while". No penile dc, testes pain/swelling, lesions or rectal pain see exam R/o UTI Recurrent per hx No e/o pyelo UA w/ +LE, >200 tonie and >3K wbc No prior +ucx/sen on record here Dc w/ abx Cxs sent To return to ED as needed Discharge - Discharge Information Problems reviewed: Yes Clinical Impression/Diagnosis: Dysuria Condition: Good Disposition: HOME - Additional Discharge Information Prescriptions: Nitrofurantoin Monohyd/M-Cryst [Macrobid -] 100 mg PO BID #14 capsule - Follow up/Referral - Patient Discharge Instructions Patient Printed Discharge Instructions: Urinary Tract Infection Additional Instructions: Take antibiotic as folow up with your PMD - Post Discharge Activity
[2019-12-15 13:38] LABS: EPI CELLS 9 /uL (0-25.1); HYALINE CASTS 2 /uL (0-3.1); PH,URINE 5.5 (5.0-8.0); URINE APPEARANCE CLOUDY; URINE BACTERIA 225 /uL (0-1359); URINE BILIRUBIN NEGATIVE (NEGATIVE); URINE COLOR YELLOW; URINE GLUCOSE (UA) NEGATIVE (NEGATIVE); URINE KETONE TRACE (NEGATIVE); URINE LEUK ESTERASE 2+ (NEGATIVE); URINE NITRITE NEGATIVE (NEGATIVE); URINE PROTEIN 3+ (NEGATIVE); URINE RBC 2436 /uL (0-23.9); URINE WBC 3097 /uL (0-25.8)
[2019-12-15] MEDS ORDERED: NITROFURANTOIN MACROCRYSTAL 50 MG CAPSULE (FP) ONE (13:49)
[2019-12-15] MEDS ORDERED: NITROFURANTOIN MACROCRYSTAL 50 MG CAPSULE (FP) PO SCH (14:00)
== END 2019-12-15 13:52 | disposition home or self-care (01) ==
LOC: JERFT 13:01
DX: R30.0 Dysuria (principal)
CPT/HCPCS: 36415; 81003; 82962; 87086; 87186; 87491; 87591; 99283-25

== ENCOUNTER 2020-02-20 21:34 | Emergency (ER) | payer BC, OTHER ==
[2020-02-20 21:41] VITALS: BP 197/87; PULSE 83; TEMP 98.2; BMI 46.7
== END 2020-02-21 00:04 | disposition home or self-care (01) ==
LOC: JER 21:34
DX: L03.116 Cellulitis of left lower limb (principal); M79.605 Pain in left leg
CPT/HCPCS: 93971-TC; 99284-25

== ENCOUNTER 2020-05-19 15:18 | Emergency (ER) | payer BC, OTHER ==
[2020-05-19 16:22] VITALS: TEMP 98.8; BMI 46.7
[2020-05-19 18:52] VITALS: BP 154/80; PULSE 83
== END 2020-05-19 17:40 | disposition home or self-care (01) ==
LOC: JER 15:18
DX: R09.81 Nasal congestion (principal)
CPT/HCPCS: 87804; 99284-25; C9803; U0003

== ENCOUNTER 2020-06-28 12:12 | Emergency (ER) | payer BC, OTHER ==
[2020-06-28 12:30] VITALS: BP 144/86; PULSE 82; TEMP 98.2; BMI 47.3
[2020-06-28] MEDS ORDERED: TETRACAINE 0.5% OPHTH SOLN 2 ML BOTTLE ONE (12:59)
== END 2020-06-28 13:47 | disposition home or self-care (01) ==
LOC: JERFT 12:12
DX: H57.89 Other specified disorders of eye and adnexa (principal)
CPT/HCPCS: 99283-25

== ENCOUNTER 2020-07-02 11:04 | Emergency (ER) | payer BC, OTHER ==
[2020-07-02 11:23] VITALS: BP 154/93; PULSE 86; TEMP 98.6; BMI 46.2
== END 2020-07-02 13:45 | disposition home or self-care (01) ==
LOC: JERFT 11:04
DX: J01.00 Acute maxillary sinusitis, unspecified (principal); H57.9 Unspecified disorder of eye and adnexa
CPT/HCPCS: 70450-TC; 99284-25

== ENCOUNTER 2020-11-29 14:33 | Emergency (ER) | payer BC, OTHER ==
[2020-11-29 14:42] VITALS: BP 162/92; PULSE 65; TEMP 98.1; BMI 46.2
[2020-11-29] MEDS ORDERED: SODIUM CHLORIDE 0.9% 500 ML INFUS.BAG IV ONE (17:41)
[2020-11-29] MEDS ORDERED: MECLIZINE HCL 25 MG TABLET (FP) PO ONE (17:42)
[2020-11-29] MEDS ORDERED: MECLIZINE HCL 25 MG TABLET (FP) ONE ×2 (17:52→18:03)
[2020-11-29 18:22] LABS: URINE APPEARANCE CLEAR; URINE BILIRUBIN NEGATIVE (NEGATIVE); URINE COLOR YELLOW; URINE GLUCOSE (UA) NEGATIVE (NEGATIVE); URINE KETONE NEGATIVE (NEGATIVE); URINE LEUK ESTERASE NEGATIVE (NEGATIVE); URINE NITRITE NEGATIVE (NEGATIVE); URINE PROTEIN NEGATIVE (NEGATIVE); URINE UROBILINOGEN 0.2 mg/dL (0.2-1.0)
[2020-11-29 18:26] LABS: BASO % 1.1 % (0-2.0); EOS % 1.4 % (0-4.5); HEMATOCRIT 42.2 % (35.4-49); HEMOGLOBIN 14.3 GM/dL (11.7-16.9); LYMPH % 24.8 % (8-40); MCH 31.6 pg (25.7-33.7); MCHC 33.9 g/dl (32.0-35.9); MEAN CELL VOLUME 93.4 fl (80-96); MEAN PLT VOLUME 8.7 fl (7.5-11.1); NEUT % 63.7 % (42.8-82.8); PLATELET COUNT 230 10^3/uL (134-434); RBC 4.51 M/mm3 (4.00-5.60); RDW 14.2 % (11.9-15.9); WHITE BLOOD COUNT 5.1 K/mm3 (4.0-10.0)
[2020-11-29 18:43] LABS: CHLORIDE 105 mmol/L (98-107); SODIUM 140 mmol/L (136-145)
[2020-11-29 18:46] LABS: ALBUMIN 3.7 g/dl (3.4-5.0); ANION GAP 7 MMOL/L (8-16); BLOOD UREA NITROGEN 21.7 mg/dL (7-18); CALCIUM 9.2 mg/dL (8.5-10.1); CO2 28 mmol/L (21-32); GLUCOSE,RANDOM 112 mg/dL (74-106)
[2020-11-29 18:49] LABS: CREATININE 1.3 mg/dL (0.55-1.3); SGOT/AST 14 U/L (15-37); SGPT/ALT 26 U/L (13-61)
[2020-11-29 18:51] LABS: BILIRUBIN,TOTAL 0.6 mg/dL (0.2-1); TOT PROT 8.1 g/dl (6.4-8.2)
[2020-11-29 18:52] LABS: ALK PHOS 76 U/L (45-117)
== END 2020-11-29 20:19 | disposition home or self-care (01) ==
LOC: JER 14:33
DX: R42 Dizziness and giddiness (principal)
CPT/HCPCS: 36415; 70450-TC; 80053; 81003; 82550; 82553; 84484; 85025; 93005; 93010; 99285-25; C9803; U0003; U0005

== ENCOUNTER 2020-12-01 16:29 | Emergency (ER) | payer BC, OTHER ==
[2020-12-01 16:41] VITALS: PULSE 70; TEMP 97; BMI 46.2
[2020-12-01] MEDS ORDERED: SODIUM CHLORIDE 0.9% 500 ML INFUS.BAG IV ONE (18:12)
[2020-12-01 19:11] LABS: BASO % 0.5 % (0-2.0); EOS % 2.3 % (0-4.5); HEMATOCRIT 41.4 % (35.4-49); HEMOGLOBIN 14.1 GM/dL (11.7-16.9); LYMPH % 23.9 % (8-40); MCH 31.5 pg (25.7-33.7); MEAN CELL VOLUME 92.6 fl (80-96); MEAN PLT VOLUME 8.8 fl (7.5-11.1); NEUT % 65.3 % (42.8-82.8); PLATELET COUNT 237 10^3/uL (134-434); RBC 4.47 M/mm3 (4.00-5.60); RDW 14.1 % (11.9-15.9); WHITE BLOOD COUNT 4.8 K/mm3 (4.0-10.0)
[2020-12-01 19:32] LABS: CHLORIDE 107 mmol/L (98-107); SODIUM 141 mmol/L (136-145)
[2020-12-01 19:36] LABS: CALCIUM 9.1 mg/dL (8.5-10.1); GLUCOSE,RANDOM 133 mg/dL (74-106)
[2020-12-01 19:37] LABS: ALBUMIN 3.7 g/dl (3.4-5.0); ANION GAP 5 MMOL/L (8-16); CO2 29 mmol/L (21-32); MAGNESIUM 1.9 mg/dL (1.8-2.4)
[2020-12-01 19:40] LABS: CREATININE 1.4 mg/dL (0.55-1.3); SGPT/ALT 28 U/L (13-61)
[2020-12-01 19:42] LABS: BILIRUBIN,TOTAL 0.5 mg/dL (0.2-1); BLOOD UREA NITROGEN 22.7 mg/dL (7-18)
[2020-12-01 19:43] LABS: ALK PHOS 84 U/L (45-117)
[2020-12-01 19:44] LABS: SGOT/AST 19 U/L (15-37)
[2020-12-01 19:48] VITALS: BP 122/70
[2020-12-01] MEDS ORDERED: POTASSIUM CHLORIDE TABS 20 MEQ TABLET.ER (FP) PO ONE (21:07)
== END 2020-12-02 00:20 | disposition home or self-care (01) ==
LOC: JER 16:29
DX: R42 Dizziness and giddiness (principal)
CPT/HCPCS: 36415; 71046-TC-FY; 80053; 82550; 82553; 82962; 83735; 84443; 84484; 85025; 93005; 93010; 99285-25; C9803; U0003; U0005

== ENCOUNTER 2021-04-03 12:39 | Emergency (ER) | payer BC, OTHER ==
[2021-04-03 12:53] VITALS: BP 154/81; PULSE 95; TEMP 97.8; BMI 35.3
[2021-04-05 00:07] LABS: SARS-CoV-2 NAA Detected (Not Detected)
== END 2021-04-03 14:58 | disposition home or self-care (01) ==
LOC: JER 12:39
DX: B34.9 Viral infection, unspecified (principal)
CPT/HCPCS: 71045-TC-FY; 87804; 99284-25; C9803; U0003; U0005

== ENCOUNTER 2021-05-10 14:23 | Emergency (ER) | payer BC, OTHER ==
[2021-05-10 14:43] VITALS: BP 145/86; PULSE 68; TEMP 97.9; BMI 50.6
[2021-05-10] MEDS ORDERED: SODIUM CHLORIDE 0.9% 500 ML INFUS.BAG IV ONE (15:53)
[2021-05-10 16:39] LABS: BASO % 1.1 % (0-2.0); EOS % 2.7 % (0-4.5); EPI CELLS 13 /uL (0-25.1); HEMATOCRIT 41.1 % (35.4-49); HEMOGLOBIN 13.4 GM/dL (11.7-16.9); HYALINE CASTS 2 /uL (0-3.1); LYMPH % 29.4 % (8-40); MCH 29.9 pg (25.7-33.7); MCHC 32.6 g/dl (32.0-35.9); MEAN CELL VOLUME 91.4 fl (80-96); MEAN PLT VOLUME 8.5 fl (7.5-11.1); MONO % 10.8 % (3.8-10.2); PLATELET COUNT 232 10^3/uL (134-434); RDW 13.6 % (11.9-15.9); URINE APPEARANCE CLEAR; URINE BACTERIA >9,000 /uL (0-1359); URINE BILIRUBIN NEGATIVE (NEGATIVE); URINE COLOR YELLOW; URINE GLUCOSE (UA) NEGATIVE (NEGATIVE); URINE KETONE NEGATIVE (NEGATIVE); URINE LEUK ESTERASE 1+ (NEGATIVE); URINE NITRITE NEGATIVE (NEGATIVE); URINE PROTEIN 1+ (NEGATIVE); URINE RBC 3 /uL (0-23.9); URINE UROBILINOGEN 0.2 mg/dL (0.2-1.0); URINE WBC 88 /uL (0-25.8); WHITE BLOOD COUNT 3.5 K/mm3 (4.0-10.0)
[2021-05-10 16:57] LABS: CHLORIDE 104 mmol/L (98-107); SODIUM 139 mmol/L (136-145)
[2021-05-10 16:59] LABS: CALCIUM 9.8 mg/dL (8.5-10.1)
[2021-05-10 17:00] LABS: ALBUMIN 3.7 g/dl (3.4-5.0); ANION GAP 4 MMOL/L (8-16); BLOOD UREA NITROGEN 20.6 mg/dL (7-18); CO2 30 mmol/L (21-32); GLUCOSE,RANDOM 192 mg/dL (74-106)
[2021-05-10 17:03] LABS: CREATININE 1.4 mg/dL (0.55-1.3); SGOT/AST 19 U/L (15-37); SGPT/ALT 30 U/L (13-61)
[2021-05-10 17:05] LABS: BILIRUBIN,TOTAL 0.4 mg/dL (0.2-1); TOT PROT 8.2 g/dl (6.4-8.2)
[2021-05-10 17:06] LABS: ALK PHOS 68 U/L (45-117)
== END 2021-05-10 18:17 | disposition home or self-care (01) ==
LOC: JER 14:23
DX: N39.0 Urinary tract infection, site not specified (principal)
CPT/HCPCS: 36415; 71046-TC-FY; 80053; 81003; 82550; 82553; 82962; 84484; 85025; 87086; 87186; 93005; 93010; 99285-25; C9803; U0003; U0005

== ENCOUNTER 2021-11-08 10:47 | Emergency (ER) | payer BC, OTHER ==
[2021-11-08 11:04] VITALS: RESP 20; TEMP 98.1; BMI 36.5
[2021-11-08 11:45] VITALS: BP 163/88; PULSE 79
== END 2021-11-08 13:56 | disposition home or self-care (01) ==
LOC: JER 10:47
DX: R05.1 Acute cough (principal); R09.81 Nasal congestion; J02.9 Acute pharyngitis, unspecified
CPT/HCPCS: 99283-25; C9803-CS; U0003; U0005

== ENCOUNTER 2022-03-28 12:14 | Emergency (ER) | payer BC, OTHER ==
[2022-03-28 12:21] VITALS: BP 152/85; PULSE 82; RESP 18; TEMP 98.7; BMI 46.2
[2022-03-28 15:48] LABS: EPI CELLS 4 /uL (0-25.1); HYALINE CASTS 1 /uL (0-3.1); PH,URINE 5.5 (5.0-8.0); URINE APPEARANCE CLEAR; URINE BACTERIA >9,000 /uL (0-1359); URINE BILIRUBIN NEGATIVE (NEGATIVE); URINE COLOR YELLOW; URINE GLUCOSE (UA) NEGATIVE (NEGATIVE); URINE KETONE NEGATIVE (NEGATIVE); URINE LEUK ESTERASE 1+ (NEGATIVE); URINE NITRITE NEGATIVE (NEGATIVE); URINE PROTEIN 1+ (NEGATIVE); URINE RBC 7 /uL (0-23.9); URINE UROBILINOGEN 0.2 mg/dL (0.2-1.0); URINE WBC 139 /uL (0-25.8)
== END 2022-03-28 16:26 | disposition home or self-care (01) ==
LOC: JERFT 12:14
DX: N39.0 Urinary tract infection, site not specified (principal)
CPT/HCPCS: 81003; 87086; 87186; 99283-25

== ENCOUNTER 2022-04-17 14:10 | Emergency (ER) | payer BC, OTHER ==
[2022-04-17 14:30] VITALS: BP 168/96; PULSE 86; RESP 18; TEMP 98.5; BMI 46.2
[2022-04-17 16:06] LABS: EPI CELLS 11 /uL (0-25.1); HYALINE CASTS 1 /uL (0-3.1); PH,URINE 5.5 (5.0-8.0); URINE APPEARANCE CLEAR; URINE BACTERIA >9,000 /uL (0-1359); URINE BILIRUBIN NEGATIVE (NEGATIVE); URINE COLOR YELLOW; URINE GLUCOSE (UA) NEGATIVE (NEGATIVE); URINE KETONE NEGATIVE (NEGATIVE); URINE LEUK ESTERASE TRACE (NEGATIVE); URINE NITRITE NEGATIVE (NEGATIVE); URINE PROTEIN 1+ (NEGATIVE); URINE RBC 12 /uL (0-23.9); URINE UROBILINOGEN 0.2 mg/dL (0.2-1.0); URINE WBC 100 /uL (0-25.8)
== END 2022-04-17 16:25 | disposition home or self-care (01) ==
LOC: JER 14:10 → JERFT 14:10
DX: N30.00 Acute cystitis without hematuria (principal)
CPT/HCPCS: 81003; 87086; 87186; 99283-25

== ENCOUNTER 2022-09-11 13:45 | Emergency (ER) | payer BC, OTHER ==
[2022-09-11 13:59] VITALS: BP 127/88; PULSE 82; RESP 18; TEMP 98.8; BMI 46.2
[2022-09-11] MEDS ORDERED: IBUPROFEN 600 MG TABLET (FP) PO ONE ×2 (15:24→15:33)
[2022-09-11] MEDS ORDERED: LIDOCAINE 5% TOPICAL PATCH TP ONE (15:24)
[2022-09-11] MEDS ORDERED: ACETAMINOPHEN 500 MG TABLET (FP) PO ONE (15:24)
[2022-09-11] MEDS ORDERED: LIDOCAINE 5% TOPICAL PATCH ONE (15:33)
[2022-09-11] MEDS ORDERED: ACETAMINOPHEN 500 MG TABLET (FP) ONE (15:33)
[2022-09-11] MEDS ORDERED: LIDOCAINE PATCH REMOVAL MC SCH (22:00)
== END 2022-09-11 16:33 | disposition home or self-care (01) ==
LOC: JER 13:45
DX: M54.6 Pain in thoracic spine (principal); X50.0XXA Overexertion from strenuous movement or load, initial encounter
CPT/HCPCS: 99283-25

== ENCOUNTER 2022-11-22 15:42 | Emergency (ER) | payer BC ==
[2022-11-22 15:49] VITALS: BMI 46.2
[2022-11-22 17:17] LABS: EOS % 2.1 % (0-4.5); HEMOGLOBIN 12.4 GM/dL (11.7-16.9); LYMPH % 26.5 % (8-40); MCH 30.4 pg (25.7-33.7); MCHC 32.6 g/dl (32.0-35.9); MEAN CELL VOLUME 93.4 fl (80-96); MEAN PLT VOLUME 8.7 fl (7.5-11.1); NEUT % 60.4 % (42.8-82.8); PLATELET COUNT 186 10^3/uL (134-434); RBC 4.07 M/mm3 (4.00-5.60); RDW 15.2 % (11.9-15.9); WHITE BLOOD COUNT 3.5 K/mm3 (4.0-10.0)
[2022-11-22 17:34] LABS: PH,URINE 5.5 (5.0-8.0); URINE APPEARANCE CLEAR; URINE BILIRUBIN NEGATIVE (NEGATIVE); URINE COLOR YELLOW; URINE GLUCOSE (UA) TRACE (NEGATIVE); URINE KETONE NEGATIVE (NEGATIVE); URINE LEUK ESTERASE NEGATIVE (NEGATIVE); URINE NITRITE NEGATIVE (NEGATIVE); URINE PROTEIN NEGATIVE (NEGATIVE); URINE UROBILINOGEN 0.2 mg/dL (0.2-1.0)
[2022-11-22 17:40] LABS: POTASSIUM 4.3 mmol/L (3.5-5.1)
[2022-11-22 17:42] LABS: CALCIUM 8.5 mg/dL (8.5-10.1)
[2022-11-22 17:43] LABS: ALBUMIN 3.5 g/dl (3.4-5.0); MAGNESIUM 1.9 mg/dL (1.8-2.4)
[2022-11-22 17:44] LABS: BLOOD UREA NITROGEN 23.3 mg/dL (7-18)
[2022-11-22 17:46] LABS: CREATININE 1.5 mg/dL (0.55-1.3)
[2022-11-22 17:48] LABS: BILIRUBIN,TOTAL 0.6 mg/dL (0.2-1); TOT PROT 7.1 g/dl (6.4-8.2)
[2022-11-22 18:47] VITALS: BP 113/73; PULSE 69; RESP 16; TEMP 98.1
== END 2022-11-22 18:48 | disposition home or self-care (01) ==
LOC: JER 15:42
DX: R07.9 Chest pain, unspecified (principal); R42 Dizziness and giddiness; R00.2 Palpitations
CPT/HCPCS: 0241U-QW; 36415; 71046-TC-FY; 80053; 81003; 83735; 84443; 84484; 85025; 87086; 93005; 93010; 99285-25

== ENCOUNTER 2023-02-24 09:54 | Emergency (ER) | payer BC ==
[2023-02-24 10:08] VITALS: BP 149/83; PULSE 76; RESP 18; TEMP 97.8; BMI 39.8
[2023-02-24 11:52] LABS: BASO % 1.2 % (0-2.0); EOS % 2.3 % (0-4.5); HEMATOCRIT 39.1 % (35.4-49); HEMOGLOBIN 12.8 GM/dL (11.7-16.9); LYMPH % 24.7 % (8-40); MCH 30.8 pg (25.7-33.7); MCHC 32.7 g/dl (32.0-35.9); MEAN CELL VOLUME 94.1 fl (80-96); MONO % 9.9 % (3.8-10.2); NEUT % 61.9 % (42.8-82.8); PLATELET COUNT 205 10^3/uL (134-434); RBC 4.16 M/mm3 (4.00-5.60); RDW 14.2 % (11.9-15.9); WHITE BLOOD COUNT 3.9 K/mm3 (4.0-10.0)
[2023-02-24 11:59] LABS: INR 1.04 (0.83-1.09); PROTHROMBIN TIME (PATIENT) 12.1 SEC (9.7-13.0)
[2023-02-24 12:02] LABS: ACTIVATED PTT 36.8 SECONDS (25.2-36.5)
[2023-02-24 12:10] LABS: POTASSIUM 5.3 mmol/L (3.5-5.1)
[2023-02-24 12:12] LABS: CALCIUM 8.8 mg/dL (8.5-10.1)
[2023-02-24 12:13] LABS: ALBUMIN 3.6 g/dl (3.4-5.0); BLOOD UREA NITROGEN 26.6 mg/dL (7-18)
[2023-02-24 12:16] LABS: CREATININE 1.4 mg/dL (0.55-1.3)
[2023-02-24 12:17] LABS: BILIRUBIN,TOTAL 0.7 mg/dL (0.2-1); TOT PROT 7.8 g/dl (6.4-8.2)
[2023-02-24 12:20] LABS: N-TERMINAL BNP 319.1 pg/ml (5-125)
[2023-02-24] MEDS ORDERED: ALBUTEROL SO4 2.5/IPRATROPIUM 0.5 INH SOL 3 ML VIAL.NEB. NEB ONE ×2 (12:40→12:42)
== END 2023-02-24 14:16 | disposition home or self-care (01) ==
LOC: JER 09:54
PROC: 3E0F7GC Introduction of Other Therapeutic Substance into Respiratory Tract, Via Natural or Artificial Opening (ICD-10-PCS; principal; 2023-02-24)
DX: R06.02 Shortness of breath (principal); R06.2 Wheezing
CPT/HCPCS: 36415; 71046-TC-FY; 80053; 83880; 84484; 85025; 85379; 85610; 85730; 93005; 93010; 99285-25

== ENCOUNTER 2023-07-18 14:11 | Emergency (ER) | payer BC ==
[2023-07-18 14:16] VITALS: BP 134/85; PULSE 76; RESP 18; TEMP 98.3; BMI 39.8
== END 2023-07-18 16:42 | disposition home or self-care (01) ==
LOC: JERFT 14:11
DX: M79.672 Pain in left foot (principal); S92.345A Nondisplaced fracture of fourth metatarsal bone, left foot, initial encounter for closed fracture; W24.0XXA Contact with lifting devices, not elsewhere classified, initial encounter
CPT/HCPCS: 73610-TC-LT-FY; 73630-TC-LT; 99283-25

== ENCOUNTER 2024-01-08 13:09 | Emergency (ER) | payer BC ==
[2024-01-08 13:19] VITALS: BP 159/85; PULSE 88; RESP 20; TEMP 99; BMI 52.3
== END 2024-01-08 14:26 | disposition home or self-care (01) ==
LOC: JERFT 13:09
DX: R05.9 Cough, unspecified (principal); R09.89 Other specified symptoms and signs involving the circulatory and respiratory systems; J06.9 Acute upper respiratory infection, unspecified
CPT/HCPCS: 71046-TC-FY; 99283-25